=== PATIENT | female | born 1970 | race Caucasian/White ===

== ENCOUNTER 2016-11-02 09:59 | Outpatient (CLI) | payer MEDICARE, OTHER | END 2016-11-02 10:00 | disposition home or self-care (01) | DX: I10 Essential (primary) hypertension (principal); D64.9 Anemia, unspecified; E55.9 Vitamin D deficiency, unspecified ==

== ENCOUNTER 2017-03-27 09:21 | Inpatient (IN) | payer MEDICARE, OTHER ==
[2017-03-27] MEDS ORDERED: ONDANSETRON 4 MG/2 ML VIAL IVP STA ×2 (10:45→17:04)
[2017-03-27] MEDS ORDERED: HYDROmorphone 1 MG/ML SYRINGE IVP STA ×3 (10:45→17:04)
[2017-03-27] MEDS ORDERED: SODIUM CHLORIDE 0.9% 1,000 ML IV ONE (10:45)
[2017-03-27] MEDS ORDERED: cefTRIAXone 1 GM in SODIUM CHLORIDE 0.9% MINIBAG 100 ML IV STA (10:47)
--- NOTE | 2017-03-27 10:50 | ED Physician Documentation ---
History of Present Illness - Stated complaint Stated Complaint: HEAD PAIN,NAUSEA - Chief complaint Chief Complaint: General - Additonal information Additional information: hx from pt 46 f idiopathic neutropenia followed by [facility] has had recurrent dental infections has left lower 2nd molar infection presently worsening despite 2 rounds of keflex (can take cephalosporins though penicillin allergy) trouble eating her dentist did plain films indicating bone infection now with facial swelling as well so she called [facility] and was sent to ER for admit for IV ab denies - she is on OCP Review of Systems Throat: reports: Dental pain / toothache Cardiac: denies: Chest pain / pressure GI: denies: Abdominal Pain : denies: Now EGA Musculoskeletal: reports: Neck pain (R anterior) Endocrine: denies: Easy bruising / bleeding Immunocompromised: denies: Immunocompromised PD PAST MEDICAL HISTORY - Past Medical History Cardiovascular: None Respiratory: Asthma Neuro: Tremors Endocrine/Autoimmune: HyPOthyroidism GI: Ulcers EYEWEAR CONSULTANT: None, Other : None HEENT: None, Other Psych: Bipolar disorder, Panic attacks Musculoskeletal: Fibromyalgia, Fatigue Derm: None Other Past Medical History: Jaw infection, sever chronic neutropenia, Polycystic ovarian disease. - Past Surgical History Past Surgical History: Yes General: Gastric surgery HEENT: Tonsil/Adenoidectomy, Other - Present Medications Home Medications: Ambulatory Orders Medication Instructions Recorded Confirmed Levothyroxine [Synthroid] 100 mcg PO DAILY 05/25/13 05/10/16 Propranolol HCl [Inderal Xl] 120 mg ORAL DAILY 11/25/14 03/27/17 Candesartan Cilexetil [Atacand] 32 mg PO DAILY 05/20/15 05/10/16 Albuterol Sulfate [Proair Hfa] 1 puffs INH Q4HR PRN 07/16/15 05/10/16 Ondansetron [Zofran Odt] 8 mg PO Q8HR PRN 07/16/15 03/27/17 Zolmitriptan [Zomig] 5 mg INH BID PRN 07/16/15 03/27/17 Epinephrine [Epipen 2-Stephen] 0.3 mg IM DAILY PRN 01/19/16 05/10/16 Levonorgestrel-Ethin Estradiol 1 tab PO DAILY 01/22/16 05/10/16 [Setlakin 0.15 mg-0.03 mg Tab] Oxycodone HCl/Acetaminophen 1 each PO Q6H PRN #10 tablet 05/13/16 [Percocet 10-325 mg Tablet] Liothyronine [Cytomel] 10 03/27/17 - Allergies Allergies/Adverse Reactions: Allergies Allergy/AdvReac Type Severity Reaction Status Date / Time clindamycin Allergy Severe Rash Verified 05/10/16 21:03 pantoprazole sodium * Allergy Severe Rash Verified 05/10/16 21:03 [From Protonix] Penicillins Allergy Severe Respiratory Verified 05/10/16 21:03 prochlorperazine edisylate * Allergy Severe panic Verified 05/10/16 21:03 [From Compazine] attack prochlorperazine maleate * Allergy Severe Edema Verified 05/10/16 21:03 [From Compazine] mushroom Allergy Unknown Rash Verified 05/10/16 21:03 codeine Allergy Emesis Verified 05/10/16 21:03 hydrocodone bitartrate * Allergy Itching Verified 05/10/16 21:03 [From Vicodin] morphine AdvReac Severe Headache Verified 05/10/16 21:03 promethazine AdvReac Severe Anxiety Verified 05/10/16 21:03 zolpidem tartrate * AdvReac Severe Hallucinati Verified 05/10/16 21:03 [From Ambien] ons Iodinated Contrast- Oral and AdvReac Rash Verified 03/27/17 12:40 IV Dye Bee stings Allergy Anaphylaxis Uncoded 05/10/16 21:04 - Social History Does the pt smoke?: No Smoking Status: Never smoker Does the pt drink ETOH?: No Does the pt have substance abuse?: No - Immunizations Immunizations are current?: Yes - POLST Patient has POLST: No PD ED PE NORMAL - Vitals Vital signs reviewed: Yes - General General: Alert and oriented X 3 - HEENT HEENT: PERRL, Moist mucous membranes, Other (multiple filling, teeth appear well cared for, TTP lower right second from back molar, no abscess swelling seen to incuse, no trismus, visible swelling along R mandible, TT, ant R cervical adenopathy, no sublingual swelling) - Cardiac Cardiac: RRR - Respiratory Respiratory: No respiratory distress, Clear bilaterally - Derm Derm: Normal color - Neuro Neuro: Alert and oriented X 3 Results - Vitals Vitals: Vital Signs - 24 hr 03/27/17 03/27/17 03/27/17 09:37 12:32 14:05 Temperature 36.6 C 36.6 C 36.5 C Heart Rate 65 58 L 60 Respiratory 16 16 15 Rate Blood Pressure 141/83 H 136/63 H 133/83 H O2 Saturation 99 96 95 03/27/17 18:10 Temperature Heart Rate 58 L Respiratory 16 Rate Blood Pressure 150/90 H O2 Saturation 98 Oxygen O2 Source Room air - Labs Labs: Laboratory Tests 03/27/17 03/27/17 03/27/17 10:55 10:55 10:55 WBC 2.5 L RBC 3.99 L Hgb 11.6 L Hct 35.0 L MCV 87.7 MCH 28.9 MCHC 33.0 RDW 14.2 Plt Count 332 MPV 9.0 Neut # 0.3 L* Lymph # 1.5 Ripley # 0.5 Eos # 0.1 Baso # 0.1 Absolute Nucleated RBC 0.00 Band Neuts % (Manual) Not Reportable Neutrophils # (Manual) CONTINUITY MANAGER Nucleated RBCs 0.1 Differential Comment MANUAL=AUTO DIFF Sodium 138 Potassium 4.4 Chloride 106 Carbon Dioxide 23 Anion Gap 9.0 BUN 12 Creatinine 0.8 Estimated GFR (MDRD) 78 L Glucose 91 Calcium 9.4 Serum HCG, Qual NEGATIVE - Rads (name of study) CT ST neck Radiology: See rad report (swelling and edema R face around R madible c/w infection/cellulitis but no drainable abscess) PD MEDICAL DECISION MAKING - ED course ED course: neutropenic pt with dental infection and facial cellulitis but no abscess req transfer to another facility for drainage has failed outpt oral ab and needs admit for IV ab spoke with hospitalist who will admit Departure - Departure Disposition: [facility] DC/Xfer Clinical Impression: Dental infection Neutropenia Qualifiers: Neutropenia type: unspecified Qualified Code(s): D70.9 - Neutropenia, unspecified Condition: Fair
[2017-03-27] MEDS ORDERED: SODIUM CHLORIDE FLUSH 0.9% 10 ML SYRINGE IVP ONE ×3 (11:05→17:16)
[2017-03-27 11:14] LABS: BASOPHILS # (AUTO) 0.1 10^3/uL (0.0-0.1); EOSINOPHILS # (AUTO) 0.1 10^3/uL (0.0-0.7); EOSINOPHILS % (AUTO) 4.3 %; HGB - HEMOGLOBIN 11.6 g/dL (12.0-16.0); LYMPHOCYTES # (AUTO) 1.5 10^3/uL (1.5-3.5); LYMPHOCYTES % (AUTO) 61.1 %; MEAN CORPUSCULAR HEMOGLOBIN 28.9 pg (27.0-31.0); MEAN CORPUSCULAR VOLUME 87.7 fL (81.0-99.0); MONOCYTES # (AUTO) 0.5 10^3/uL (0.0-1.0); MONOCYTES % (AUTO) 18.7 %; NEUTROPHILS % (AUTO) 12.9 %; NUCLEATED RED BLOOD CELLS AUTO 0.1 /100WBC; RED BLOOD COUNT 3.99 10^6/uL (4.20-5.40); RED CELL DISTRIBUTION WIDTH 14.2 % (12.0-15.0); UNCORRECTED WHITE BLOOD COUNT 2.5 x10^3/uL; WHITE BLOOD COUNT 2.5 x10^3/uL (4.8-10.8)
[2017-03-27 11:19] LABS: CALCIUM 9.4 mg/dL (8.5-10.3); CREATININE 0.8 mg/dL (0.4-1.0); POTASSIUM 4.4 mmol/L (3.5-5.0)
[2017-03-27 11:20] LABS: NEUTROPHILS # (AUTO) 0.3 10^3/uL (1.5-6.6)
[2017-03-27] MEDS ORDERED: ONDANSETRON 4 MG/2 ML VIAL ONE ×2 (11:28→17:15)
[2017-03-27] MEDS ORDERED: HYDROmorphone 1 MG/ML SYRINGE ONE ×4 (11:28→17:15)
[2017-03-27] MEDS ORDERED: cefTRIAXone 1 GM VIAL ONE (11:29)
[2017-03-27 11:39] LABS: NP AUTO DIFFERENTIAL? NO; NP MAN DIFFERENTIAL? YES
[2017-03-27] MEDS ORDERED: diphenhydrAMINE INJ 50 MG/ML VIAL IVP STA (12:45)
[2017-03-27] MEDS ORDERED: diphenhydrAMINE INJ 50 MG/ML VIAL ONE (12:48)
[2017-03-27] MEDS ORDERED: IOPAMIDOL-300 100 ML VIAL ONE (14:19)
--- NOTE | 2017-03-27 15:08 | CT Preliminary Report ---
Exam: CT Neck Soft Tissue W/ IMPRESSION: Swelling and edema in the right face, especially in the region of the right mandible, fin dings consistent with soft tissue infection/cellulitis but there is no evidence for drainable abscess . [facility] SITE ID: [id number]
--- NOTE | 2017-03-27 15:10 | CT Report ---
EXAM: CT SOFT TISSUE NECK EXAM DATE: 03/27/2017 02:20 PM. HISTORY: History of dental infection with worsening soft tissue swelling. COMPARISONS: None. TECHNIQUE: Routine soft tissue neck CT protocol. IV contrast: 100 mL Isovue-300. Reconstructions: Cor onal and sagittal. In accordance with CT protocol optimization, one or more of the following dose reduction techniques w ere utilized for this exam: automated exposure control, adjustment of mA and/or KV based on patient s ize, or use of iterative reconstructive technique. FINDINGS: Incomplete oral cavity evaluation secondary to severe streak artifact created by dental metal, most c onspicuous on axial images 44 through 57 and corresponding sagittal and coronal reconstructions. Canine or premolar periapical dental lucency in the left anterior maxilla consistent with dental deca y or infection. Extensive amorphous soft tissue stranding and swelling superficially in the right face and upper neck , most evident anterior and lateral to the right mandible and extending inferiorly along the platysma which is thickened and irregular. Mild stranding and edema adjacent to the right submandibular space . No evidence however for drainable abscess. There are mildly prominent cervical lymph nodes that are likely reactive. Unremarkable appearance of the parotid and submandibular salivary glands and thyroid gland. Soft tissue fullness in the nasopharynx is probably secondary to adenoid hypertrophy. No evidence for acute laryngitis or pharyngitis by CT imaging criteria, no airway narrowing. Unremarkable appearing epiglottis. Amorphous soft tissue fullness at the tongue base likely represents lingual tonsil hypert rophy. There are findings suggestive of prior sinus surgeries. There is extensive opacity of both maxillary sinuses, there may be a chronic component, but acute maxillary sinus disease cannot be ruled out. Symmetric unremarkable appearing orbits. No evidence for focal intracranial lesion. Normal internal j ugular vein enhancement. IMPRESSION: Swelling and edema in the right face, especially in the region of the right mandible, fin dings consistent with soft tissue infection/cellulitis but there is no evidence for drainable abscess . [facility] Referring Provider Line: [phone] SITE ID: [id number]
[2017-03-27] MEDS ORDERED: ACETAMINOPHEN 325 MG TABLET PO PRN (18:38)
[2017-03-27] MEDS: HYDROmorphone 1 MG/ML SYRINGE IVP PRN ×2 (19:13→21:38)
[2017-03-27] MEDS: SODIUM CHLORIDE FLUSH 0.9% 10 ML SYRINGE IVP PRN (19:14)
[2017-03-27] MEDS: LINEZOLID 600 MG/300 ML 300 ML IV SCH (19:32)
[2017-03-27] MEDS ORDERED: SODIUM CHLORIDE 0.9% IV SCH (21:00)
[2017-03-27] MEDS ORDERED: DOXYCYCLINE IV SCH (21:00)
[2017-03-27] MEDS: CHLORHEXIDINE GLUCONATE 15 ML UDC PO SCH (21:37)
[2017-03-27] MEDS: SODIUM CHLORIDE FLUSH 0.9% 10 ML SYRINGE IVP SCH (21:38)
[2017-03-28] MEDS: HYDROmorphone 1 MG/ML SYRINGE IVP PRN ×11 (00:52→23:57)
[2017-03-28] MEDS: SODIUM CHLORIDE FLUSH 0.9% 10 ML SYRINGE IVP PRN ×4 (00:54→22:05)
[2017-03-28] MEDS: ONDANSETRON 4 MG/2 ML VIAL IVP PRN ×2 (05:50→14:35)
[2017-03-28] MEDS: LINEZOLID 600 MG/300 ML 300 ML IV SCH ×2 (06:36→18:59)
[2017-03-28] MEDS: SODIUM CHLORIDE FLUSH 0.9% 10 ML SYRINGE IVP SCH ×5 (06:37→19:00)
[2017-03-28] MEDS ORDERED: diazePAM 5 MG TABLET PO PRN (09:03)
[2017-03-28] MEDS: POLYETHYLENE GLYCOL 3350 17 GM PACKET PO SCH (09:19)
[2017-03-28] MEDS: CHLORHEXIDINE GLUCONATE 15 ML UDC PO SCH ×2 (09:36→22:05)
[2017-03-28] MEDS: TBO-FILGRASTIM 300 MCG/0.5 ML SYRINGE SUBQ SCH (09:36)
[2017-03-28] MEDS: oxyCOD/ACETAMIN 5 MG/325 MG TABLET PO PRN ×4 (09:36→22:58)
[2017-03-28 09:44] LABS: BASOPHILS # (AUTO) 0.1 10^3/uL (0.0-0.1); BASOPHILS % (AUTO) 2.1 %; EOSINOPHILS # (AUTO) 0.2 10^3/uL (0.0-0.7); HCT - HEMATOCRIT 32.1 % (37.0-47.0); HGB - HEMOGLOBIN 10.6 g/dL (12.0-16.0); LYMPHOCYTES # (AUTO) 1.4 10^3/uL (1.5-3.5); LYMPHOCYTES % (AUTO) 58.2 %; MEAN CORPUSCULAR HEMOGLOBIN 28.8 pg (27.0-31.0); MEAN CORPUSCULAR HGB CONC 33.2 g/dL (32.0-36.0); MEAN CORPUSCULAR VOLUME 86.7 fL (81.0-99.0); MEAN PLATELET VOLUME 8.3 fL (7.9-10.8); MONOCYTES # (AUTO) 0.5 10^3/uL (0.0-1.0); MONOCYTES % (AUTO) 19.7 %; NUCLEATED RED BLOOD CELLS AUTO 0.1 /100WBC; UNCORRECTED WHITE BLOOD COUNT 2.4 x10^3/uL; WHITE BLOOD COUNT 2.4 x10^3/uL (4.8-10.8)
[2017-03-28 09:49] LABS: NEUTROPHILS # (AUTO) 0.3 10^3/uL (1.5-6.6)
[2017-03-28] MEDS: DOXYCYCLINE INJ 100 MG in SODIUM CHLORIDE 0.9% MINIBAG 100 ML IV SCH ×4 (09:54→22:50)
[2017-03-28] MEDS ORDERED: diphenhydrAMINE INJ 50 MG/ML VIAL IVP ONE (14:00)
[2017-03-28] MEDS ORDERED: GADOBUTROL 10 MMOL/10 ML VIAL IVP ONE (16:03)
--- NOTE | 2017-03-28 17:14 | MRI Preliminary Report ---
Exam: MRI Facial W/WO IMPRESSION: 1. Redemonstration extensive soft tissue swelling and inflammatory change adjacent to the right denton ble (for example series 401 image 16 series 701 image 15) involving the soft tissues of the right bas e, lateral to the right mandible and extending soft tissues of the jaw and also extending to lateral aspect of the right submandibular space (series 71 image 14), consistent with extensive soft tissue c ellulitis. 2. A small peripherally enhancing collection lateral to the posterior mandibular body (series 801 amarilys ge 19, series 1001 image 13, series 701 image 19) measuring 8 x 5 x 11 mm (AP by transverse by cranio caudal), consistent with a underlying abscess. 3. The associated right mandibular body demonstrates T1 hypointensity (for example series 601 image 1 6) with associated mild T2 hyperintensity and enhancement (for example series 701 image 17, series 80 1 image 17), concerning for underlying osteomyelitis. 4. Scattered mildly prominent cervical lymph nodes are seen, for example right level IIA node measuri ng 12 x 9 mm (series 801 image 18, right level IB node measuring 11 x 8 mm (series 801 image 14), the se are likely reactive. CRITICAL RESULT: The findings were discussed with Dr. Harmon On 03/28/2017 17:08 [facility] SITE ID: [id number]
--- NOTE | 2017-03-28 17:17 | MRI Report ---
EXAM: MRI OF THE FACE AND NECK WITHOUT AND WITH CONTRAST EXAM DATE: 03/28/2017 CLINICAL INDICATION: Possible jaw osteomyelitis. History of right mandibular tooth abscess for 2 week s. COMPARISON: CT soft tissue neck 03/27/2017 TECHNIQUE: Multiplanar, multisequence MRI of the face and neck soft tissues was performed prior to and following intravenous administration of contrast. IV CONTRAST: 10 cc Gadavist FINDINGS: Visualized Intracranial Contents: Unremarkable. Orbits: Unremarkable. Sinuses: Extensive mucosal thickening final maxillary sinuses mild mucosal thickening sphenoid sinuse s. Soft tissues: again noted is extensive soft tissue swelling and inflammatory change adjacent to the r ight mandible (for example series 401 image 16 series 701 image 15) involving the soft tissues of the right base, lateral to the right mandible and extending soft tissues of the jaw and also extending t o lateral aspect of the right submandibular space (series 71 image 14), consistent with extensive sof t tissue cellulitis. There is a small peripherally enhancing collection lateral to the posterior phuc ibular body (series 801 image 19, series 1001 image 13, series 701 image 19) measuring 8 x 5 x 11 mm (AP by transverse by craniocaudal), consistent with a underlying abscess. The associated right mandib ular body demonstrates T1 hypointensity (for example series 601 image 16) with associated mild T2 hyp erintensity and enhancement (for example series 701 image 17, series 801 image 17), concerning for un derlying osteomyelitis. Pharynx and Floor of Mouth: Nasopharyngeal mucosa and parapharyngeal spaces are unremarkable. Retroph aryngeal spaces are normal and symmetric. Airway is widely patent. Base of tongue and floor of mouth are symmetric without mass lesion. No abnormal enhancement. Larynx: Laryngeal airway is patent without mass lesion. True vocal cords are symmetric. Parotid and Submandibular Glands: Normal. Lymph Nodes: Scattered mildly prominent cervical lymph nodes are seen, for example right level IIA no de measuring 12 x 9 mm (series 801 image 18, right level IB node measuring 11 x 8 mm (series 801 imag e 14), these are likely reactive. Vascular Flow Voids: Unremarkable. Cervical Spine: Bone marrow signal is normal. Other: None. IMPRESSION: 1. Redemonstration extensive soft tissue swelling and inflammatory change adjacent to the right denton ble (for example series 401 image 16 series 701 image 15) involving the soft tissues of the right bas e, lateral to the right mandible and extending soft tissues of the jaw and also extending to lateral aspect of the right submandibular space (series 71 image 14), consistent with extensive soft tissue c ellulitis. 2. A small peripherally enhancing collection lateral to the posterior mandibular body (series 801 amarilys ge 19, series 1001 image 13, series 701 image 19) measuring 8 x 5 x 11 mm (AP by transverse by cranio caudal), consistent with a underlying abscess. 3. The associated right mandibular body demonstrates T1 hypointensity (for example series 601 image 1 6) with associated mild T2 hyperintensity and enhancement (for example series 701 image 17, series 80 1 image 17), concerning for underlying osteomyelitis. 4. Scattered mildly prominent cervical lymph nodes are seen, for example right level IIA node measuri ng 12 x 9 mm (series 801 image 18, right level IB node measuring 11 x 8 mm (series 801 image 14), the se are likely reactive. CRITICAL RESULT: The findings were discussed with Dr. Harmon On 03/28/2017 17:08 [facility] Referring Provider Line: [phone] SITE ID: [id number]
--- NOTE | 2017-03-28 22:59 | HISTORY & PHYSICAL EXAMINATION ---
DATE OF ADMISSION: 03/27/2017 HISTORY OF PRESENT ILLNESS: This is a 46-year-old white female with a history of gastric bypass surgery for morbid obesity, which was done in 2002. Subsequently, she has developed multiple GI problems with daily nausea, intermittent diarrhea, occasional abdominal discomfort, felt to be due to adhesions, for which she has required abdominal surgery. She has a history of fibromyalgia, and a history of neutropenia of unknown etiology (worked up extensively at multiple specialty centers). In the past, this was responsive to Neupogen, but this was stopped as there was no longer benefit. The patient is prone to frequent infections because of her low white blood cell count. The patient presents with a dental infection that has had 2 courses of oral Keflex treatment over the past 2-3 weeks. Even with the second course of treatment, she started to develop worsening swelling in the location of the pain , which was in the right lower jaw. She was unable to reach her animal services officer or her dentist for advice and presented to the emergency room with this complaint. She was found to have significant facial cellulitis on evaluation in the ER. MEDICATIONS AT HOME 1. Synthroid 100 mcg p.o. daily. 2. Inderal XL 120 mg p.o. daily. 3. Atacand 32 mg p.o. daily. 4. ProAir HFA 1 puff q.4 hours p.r.n. 5. Zofran 8 mg p.o. q.8 hours p.r.n. nausea. 6. Zomig 5 mg inhaler b.i.d. p.r.n. 7. EpiPen p.r.n. for allergic reactions and respiratory distress. 8. Estradiol 1 tab p.o. daily. 9. Tylenol with Codeine q.6 hours p.r.n. pain. 10. Cytomel unknown dose. ALLERGIES: 1. CLINDAMYCIN. 2. PROTONIX. 3. PENICILLINS. 4. COMPAZINE. 5. MUSHROOMS. 6. CODEINE. 7. VICODIN. 8. MORPHINE. 9. PROMETHAZINE. 10. AMBIEN. 11. IODINATED DYE. 12. BEE STINGS. SOCIAL HISTORY: The patient is a nonsmoker, never smoked, drinks no alcohol, denies any substance abuse. REVIEW OF SYSTEMS: The patient has hypothyroidism and describes intermittent fluctuations in her fatigue. She has bipolar disorder and describes occasional panic attacks. She describes insomnia. There is a past history of polycystic ovary disease. She describes minimal weight loss despite the gastric bypass surgery even on an 800 calorie per day diet. There has been no fever with this current infection. She denies any diarrhea with the 2 courses of antibiotics. She denies cardiopulmonary symptoms. The rest of her multi-organ ROS is negative. FAMILY HISTORY: Not significant, except that her sister also underwent gastric bypass surgery for obesity. PHYSICAL EXAMINATION GENERAL: Reveals an obese, white female. She is in no distress. She has obvious swelling of the right lower jaw area. VITAL SIGNS: Blood pressure 140/80, heart rate is in the 60s. She is in sinus rhythm. She is afebrile, respiratory rate 16. HEENT: Moist oral mucosa. In the mouth, there is no obvious swelling, there are no tonsils seen, no abscesses visible. In the right lower jaw area externally, she has warmth, but no redness, and extensive swelling from the mid-anterior chin to the angle of the jaw and slightly down toward the neck. There is no crepitus or fluctuation. There is moderate induration. NECK: Shows no JVD or carotid bruits. No thyromegaly. CHEST: Clear. HEART: Sounds are normal. No audible murmurs. ABDOMEN: Soft, obese. Positive bowel sounds. EXTREMITIES: No clubbing, cyanosis, or edema. NEUROLOGIC: Neurologically she is intact. LABORATORY DATA: Sodium 138, potassium 4.4. Normal BUN and creatinine. Negative hCG. White blood count total is 2.5 with 0.3 neutrophils, hemoglobin 11.6, platelet count normal at 332. There was no INR done. IMAGING: She had facial x-rays done which showed possibility of osteomyelitis. DIAGNOSES 1. Cellulitis of the right jaw area. 2. Dental infection with abscess. 3. Possible osteomyelitis. 4. Chronic iatrogenic neutropenia. 5. Hypertension. 6. Hypothyroidism. 7. Obesity. 8. Fibromyalgia. 9. Extensive allergies. PLAN IV antibiotics to cover oral bacteria including anaerobes. Due to her allergies to CEPHALOSPORINS and PENICILLINS and CLINDAMYCIN, she will be placed on Zyvox and doxycycline IV. She will be started on the generic equivalent of Neupogen in order to try to stimulate white blood cell and neutrophil formation. She will have pain management using Dilaudid and Percocet. Her diet will be adjusted to a soft diet to decrease pain while chewing. She will have neutropenic precautions in the room with a neutropenic diet ordered. She will undergo MRI of the head in order to evaluate for mandibular osteomyelitis. A surgical consult will be obtained to evaluate the abscess. The swelling will be followed for airway obstruction. If there is a fever or worsening labs or worsening of swelling, then she will be transferred to a facility with higher level of care. JOB #: [id number] EXT JOB #:[id number] ASHLI
[2017-03-29] MEDS: HYDROmorphone 1 MG/ML SYRINGE IVP PRN ×9 (02:02→23:40)
[2017-03-29] MEDS: oxyCOD/ACETAMIN 5 MG/325 MG TABLET PO PRN ×4 (03:19→21:17)
[2017-03-29] MEDS: SODIUM CHLORIDE FLUSH 0.9% 10 ML SYRINGE IVP SCH ×3 (05:07→19:34)
[2017-03-29 05:57] LABS: BASOPHILS % (AUTO) 2.1 %; EOSINOPHILS % (AUTO) 9.3 %; HCT - HEMATOCRIT 33.6 % (37.0-47.0); HGB - HEMOGLOBIN 10.9 g/dL (12.0-16.0); LYMPHOCYTES % (AUTO) 58.4 %; MEAN CORPUSCULAR HEMOGLOBIN 28.9 pg (27.0-31.0); MEAN CORPUSCULAR HGB CONC 32.5 g/dL (32.0-36.0); MEAN CORPUSCULAR VOLUME 88.8 fL (81.0-99.0); MEAN PLATELET VOLUME 8.7 fL (7.9-10.8); MONOCYTES % (AUTO) 17.9 %; NEUTROPHILS % (AUTO) 12.3 %; RED BLOOD COUNT 3.78 10^6/uL (4.20-5.40); RED CELL DISTRIBUTION WIDTH 13.8 % (12.0-15.0); UNCORRECTED WHITE BLOOD COUNT 2.2 x10^3/uL; WHITE BLOOD COUNT 2.2 x10^3/uL (4.8-10.8)
[2017-03-29] MEDS: LINEZOLID 600 MG/300 ML 300 ML IV SCH ×2 (06:37→15:53)
[2017-03-29] MEDS: ONDANSETRON 4 MG/2 ML VIAL IVP PRN ×2 (06:37→19:34)
[2017-03-29 06:42] LABS: NEUTROPHILS % (MANUAL) 14 %; TOTAL CELLS COUNTED 100
[2017-03-29 06:44] LABS: BAND NEUTROPHILS % (MANUAL) 2 %; BASOPHILS % (MANUAL) 2 %; EOSINOPHILS % (MANUAL) 3 %; LYMPHOCYTES % (MANUAL) 67 %
[2017-03-29 06:45] LABS: PLATELET ESTIMATE, MANUAL NORMAL (130-450,000) (NORMAL)
[2017-03-29 06:46] LABS: NP AUTO DIFFERENTIAL? YES; NP MAN DIFFERENTIAL? NO
[2017-03-29] MEDS ORDERED: ZOLMITRIPTAN 5 MG INH PRN (10:20)
[2017-03-29] MEDS ORDERED: ALBUTEROL NEB 2.5 MG/3 ML INH PRN (10:28)
[2017-03-29] MEDS ORDERED: SODIUM CHLORIDE FLUSH 0.9% 10 ML SYRINGE IVP ONE (10:54)
[2017-03-29] MEDS ORDERED: LEVOTHYROXINE 100 MCG TABLET PO SCH (11:00)
[2017-03-29] MEDS ORDERED: WATER FOR INJECTION,STERILE 0 ML ONE (11:16)
[2017-03-29] MEDS: LEVONORGESTREL ETHIN ESTRADIOL PO SCH (12:22)
--- NOTE | 2017-03-29 12:23 | XRAY Report ---
FRONTAL CHEST: 03/29/2017 CLINICAL INDICATION: Right arm PICC placement. COMPARISON: 01/19/2016. FINDINGS: Frontal view of the chest demonstrates a right arm PICC terminating in the expected locati on of the mid right subclavian vein. The cardiac silhouette is within normal limits. The lungs are cl ear. No effusion or pneumothorax is present. IMPRESSION: RIGHT ARM PICC TERMINATING IN THE MID RIGHT SUBCLAVIAN VEIN. JOB #: [id number] EXT JOB #:
[2017-03-29] MEDS: SODIUM CHLORIDE FLUSH 0.9% 10 ML SYRINGE IVP PRN ×4 (12:24→23:41)
[2017-03-29] MEDS ORDERED: diazePAM INJ 5 MG/ML SYRINGE IVP ONE (12:29)
[2017-03-29] MEDS: DOXYCYCLINE INJ 100 MG in SODIUM CHLORIDE 0.9% MINIBAG 100 ML IV SCH (14:35)
[2017-03-29] MEDS: CHLORHEXIDINE GLUCONATE 15 ML UDC PO SCH ×2 (14:41→21:17)
[2017-03-29] MEDS: POLYETHYLENE GLYCOL 3350 17 GM PACKET PO SCH (14:42)
[2017-03-29] MEDS: TBO-FILGRASTIM 300 MCG/0.5 ML SYRINGE SUBQ SCH (14:43)
--- NOTE | 2017-03-29 14:43 | PROVIDER PROGRESS NOTE ---
Assessment/Plan - Problem List (1) Cellulitis and abscess of face Assessment/Plan: THIS IS LATE ENTRY OF VISIT DONE 03/28/17 Minimal change in physical exam. Continue plan (2) Osteomyelitis Qualifiers: Osteomyelitis type: other acute Assessment/Plan: Will request surgery consult regarding oral surgery impression. - Current Meds Current Meds: Current Medications Generic Name Dose Route Start Last Admin Trade Name Freq PRN Reason Stop Dose Admin Chlorhexidine Gluconate 15 ml 03/27/17 21:00 03/28/17 22:05 Peridex PO 15 ml BID SANJAY Administration Hydromorphone HCl 1 mg 03/27/17 18:38 03/29/17 14:22 Dilaudid Inj IVP 1 mg Q2HR PRN Administration Pain 8 to 10 Levothyroxine Sodium 100 mcg 03/29/17 11:00 03/29/17 12:23 Synthroid PO Not Given DAILY SANJAY Non-Formulary Medication 1 tab 03/29/17 10:30 03/29/17 12:22 Levonorgestrel-Ethin Estradiol [Setlakin 0.15 Mg-0.03 Mg Tab] PO Not Given DAILY SANJAY Ondansetron HCl 4 mg 03/28/17 05:37 03/29/17 06:37 Zofran Inj IVP 4 mg Q4HR PRN Administration Nausea / Vomiting Oxycodone/Acetaminophen 1 tab 03/28/17 09:02 03/29/17 08:19 Percocet 5 Mg/325 Mg PO 1 tab Q4HR PRN Administration PAIN Polyethylene Glycol 17 gm 03/28/17 09:00 03/28/17 09:19 Miralax PO Not Given DAILY SANJAY Sodium Chloride 10 ml 03/27/17 18:38 03/29/17 13:23 Normal Saline Flush 0.9% IVP 10 ml PRN PRN Administration NEEDED PER PROVIDER ORDERS Sodium Chloride 10 ml 03/27/17 22:00 03/29/17 05:07 Normal Saline Flush 0.9% IVP Not Given Q8HR SANJAY Tbo-Filgrastim 300 mcg 03/28/17 10:00 03/28/17 09:36 Granix SUBQ 300 mcg DAILY SANJAY Administration - Lab Result Fish Bone Diagrams: 03/29/17 05:21 03/27/17 10:55 - Additional Planning My Orders: My Active Orders 03/29/17 08:20 PICC Line Care [RC] Q4H PICC Line Insert [RC] .ONCE 03/29/17 10:20 Zolmitriptan [Zomig] 5 mg INH BID PRN 03/29/17 10:28 Albuterol 2.5 mg INH RTQ4H PRN 03/29/17 10:30 Levonorgestrel-Ethin Estradiol [Setlakin 0.15 mg-0.03 mg Tab] 1 tab PO DAILY 03/29/17 11:00 Levothyroxine [Synthroid] 100 mcg PO DAILY 03/29/17 12:30 diazePAM [Valium] 10 mg PO QPM PRN 03/29/17 15:00 Linezolid 600 mg/300 ml [Zyvox 600 mg/300 ml] 300 ml IV 0300,1500 03/30/17 01:00 Doxycycline Inj [Vibramycin Inj] 100 mg Sodium Chloride 0.9% Minibag [Normal Saline 0.9% Minibag] 100 ml IV 0100,1300 03/30/17 02:00 Doxycycline Inj [Vibramycin Inj] 100 mg Sodium Chloride 0.9% Minibag [Normal Saline 0.9% Minibag] 100 ml IV 0200,1400 03/30/17 09:00 Losartan [Cozaar] 100 mg PO DAILY Subjective - Subjective Patient Reports: Feeling Better (THIS IS A LATE ENTRY FROM VISIT DONE 03/28/17) Nursing Reports: Other (Still swollen R lower jaw) Objective Vital Signs: Vital Signs - 24 hr 03/28/17 03/28/17 03/29/17 16:54 20:13 00:05 Temperature 36.6 C 36.9 C 36.4 C L Heart Rate [ 70 70 65 Apical] Respiratory 17 18 16 Rate Blood Pressure 148/73 H 160/92 H 118/56 L [Left] Blood Pressure [Right Brachial artery] O2 Saturation 96 98 03/29/17 03/29/17 03/29/17 05:42 08:43 12:44 Temperature 36.6 C 36.6 C 36.8 C Heart Rate [ 71 73 73 Apical] Respiratory 16 16 18 Rate Blood Pressure [Left] Blood Pressure 129/65 152/96 H 161/83 H [Right Brachial artery] O2 Saturation 95 97 99 Oxygen O2 Source Room air I&O (Last 24 Hrs): Intake and Output Totals x24h 03/27/17 03/28/17 03/29/17 23:59 23:59 23:59 Intake Total 680 4169 1425 Output Total 1 Balance 679 4169 1425 General: Alert HEENT: Mucous membr. moist/pink, Other (More swollen and indurated R lower jaw, less tender, no warmth or redness) Neuro: Alert Cardiovascular: Regular rate Respiratory: No respiratory distress Abdomen: Soft Extremities: No edema - Results Results: Laboratory Results WBC 2.2 x10^3/uL (4.8-10.8) L 03/29/17 05:21 RBC 3.78 10^6/uL (4.20-5.40) L 03/29/17 05:21 Hgb 10.9 g/dL (12.0-16.0) L 03/29/17 05:21 Hct 33.6 % (37.0-47.0) L 03/29/17 05:21 MCV 88.8 fL (81.0-99.0) 03/29/17 05:21 MCH 28.9 pg (27.0-31.0) 03/29/17 05:21 MCHC 32.5 g/dL (32.0-36.0) 03/29/17 05:21 RDW 13.8 % (12.0-15.0) 03/29/17 05:21 Plt Count 287 10^3/uL (130-450) 03/29/17 05:21 MPV 8.7 fL (7.9-10.8) 03/29/17 05:21 Neut # Not Reportable 03/29/17 05:21 Lymph # Not Reportable 03/29/17 05:21 [place] # Not Reportable 03/29/17 05:21 Eos # Not Reportable 03/29/17 05:21 Baso # Not Reportable 03/29/17 05:21 Absolute Nucleated RBC Not Reportable 03/29/17 05:21 Total Counted 100 03/29/17 05:21 Band Neuts % (Manual) 2 % (0-10) 03/29/17 05:21 Neutrophils # (Manual) 0.4 10^3/uL (1.5-6.6) L* 03/29/17 05:21 Lymphocytes # (Manual) 1.5 10^3/uL (1.5-3.5) 03/29/17 05:21 Monocytes # (Manual) 0.3 10^3/uL (0.0-1.0) 03/29/17 05:21 Eosinophils # (Manual) 0.1 10^3/uL (0-0.7) 03/29/17 05:21 Basophils # (Manual) 0.0 10^3/uL (0-0.1) 03/29/17 05:21 Nucleated RBCs Not Reportable 03/29/17 05:21 Differential Comment MANUAL DIFFERENTIAL 03/29/17 05:21 Manual Slide Review Indicated 03/28/17 09:39 Platelet Estimate NORMAL (130-450,000) (NORMAL) 03/29/17 05:21 RBC Morph Micro Appear NORMAL APPEARANCE (NORMAL) 03/29/17 05:21 Sodium 138 mmol/L (135-145) 03/27/17 10:55 Potassium 4.4 mmol/L (3.5-5.0) 03/27/17 10:55 Chloride 106 mmol/L (101-111) 03/27/17 10:55 Carbon Dioxide 23 mmol/L (21-32) 03/27/17 10:55 Anion Gap 9.0 (6-13) 03/27/17 10:55 BUN 12 mg/dL (6-20) 03/27/17 10:55 Creatinine 0.8 mg/dL (0.4-1.0) 03/27/17 10:55 Estimated GFR (MDRD) 78 (>89) L 03/27/17 10:55 Glucose 91 mg/dL (70-100) 03/27/17 10:55 Calcium 9.4 mg/dL (8.5-10.3) 03/27/17 10:55 Serum HCG, Qual NEGATIVE 03/27/17 10:55
--- NOTE | 2017-03-29 16:40 | CONSULTATION NOTE ---
DATE OF CONSULTATION: 03/28/2017 00:00:00 03/28/2017. REQUESTING PROVIDER: Daphne Harmon MD REASON FOR CONSULTATION: Tooth abscess and facial cellulitis. HISTORY OF PRESENT ILLNESS: This is a 46-year-old female who has a diagnosis of neutropenia of unknown etiology, who states that she has been having right- sided tooth pain for several weeks and was seen by her dentist who recommended tooth extraction. However, given her neutropenia, they elected to wait until this issue could be resolved. In the interim, she began developing worsening tooth pain and swelling of the right side of her face. She subsequently presented to the emergency department on March 27. She was admitted to the medical service and placed on IV antibiotics. An MRI of the head and neck were performed which demonstrated extensive soft tissue swelling and inflammatory changes in the right mandible consistent with a soft tissue cellulitis. There was a small collection lateral to the posterior mandibular body measuring 8 x 5 x 11 mm consistent with an underlying abscess. There were also findings suggestive of right mandibular osteomyelitis. Additionally, there is prominent cervical lymphadenopathy. At this point a surgical consultation was obtained. PAST MEDICAL HISTORY: Significant for neutropenia of unknown etiology, fibromyalgia, morbid obesity, asthma. PAST SURGICAL HISTORY: Gastric bypass. MEDICATIONS: Home medications: 1. Synthroid. 2. Inderal. 3. Atacand. 4. ProAir. 5. Zofran. 6. Zomig. 7. EpiPen. 8. Estradiol. 9. Tylenol. 10. Cytomel. ALLERGIES TO MEDICATIONS: 1. CLINDAMYCIN. 2. PROTONIX. 3. PENICILLIN. 4. COMPAZINE. 5. MUSHROOMS. 6. CODEINE. 7. VICODIN. 8. MORPHINE. 9. PROMETHAZINE. 10. AMBIEN. 11. IODINATED DYE. 12. BEE STINGS. SOCIAL HISTORY: The patient is a nonsmoker and does not drink alcohol. PHYSICAL EXAMINATION: VITAL SIGNS: Temperature is 36.4, blood pressure 118/56, heart rate is 65, respiratory rate is 16, O2 status 98% on room air. GENERAL: She is awake, alert , oriented x3, in no acute distress. She is obese. HEENT: There is right-sided facial swelling. There is no visible intraoral cellulitis or fluid collection noted. There is no hoarseness or stridor present. LABORATORY VALUES: White blood cell count is 2.2, hemoglobin 10.9, hematocrit 33.6, platelets 287. Sodium 138, potassium 4.4, chloride 106, bicarbonate 23, BUN 12, creatinine 0.8, glucose 91. ASSESSMENT: This is a 46-year-old female with right facial cellulitis and a mandibular abscess and osteomyelitis. PLAN: I have discussed with the medical team the fact that as a general surgeon , I do not perform any mandibular procedures or tooth extractions. The patient should be transferred to a center with a maxillofacial surgeon for definitive management. JOB #: [id number] EXT JOB #:[id number] MTDD
--- NOTE | 2017-03-29 17:14 | PROVIDER PROGRESS NOTE ---
Assessment/Plan - Problem List (1) Cellulitis and abscess of face Assessment/Plan: Slight improvement by physical exam. Continue antibiotics (2) Osteomyelitis Qualifiers: Osteomyelitis type: other acute Assessment/Plan: Continue antibiotics, a long course will be necessary, therefore will order a PICC line. (3) Dental infection Assessment/Plan: If surgery for drainage is indicated, Pt will need transfer. Awaiting General surg consult and I will call her Dentist for further recommendations (4) Neutropenia Qualifiers: Neutropenia type: unspecified Qualified Code(s): D70.9 - Neutropenia, unspecified Assessment/Plan: Continue isolation precautions and follow ANC - Current Meds Current Meds: Current Medications Generic Name Dose Route Start Last Admin Trade Name Freq PRN Reason Stop Dose Admin Chlorhexidine Gluconate 15 ml 03/27/17 21:00 03/29/17 14:41 Peridex PO 15 ml BID SANJAY Administration Hydromorphone HCl 1 mg 03/27/17 18:38 03/29/17 16:46 Dilaudid Inj IVP 1 mg Q2HR PRN Administration Pain 8 to 10 Linezolid 300 mls @ 300 mls/hr 03/29/17 15:00 03/29/17 15:53 Zyvox 600 Mg/300 Ml IV 300 mls/hr 0300,1500 SANJAY Administration Levothyroxine Sodium 100 mcg 03/29/17 11:00 03/29/17 12:23 Synthroid PO Not Given DAILY PENDING SALE TO [facility] Non-Formulary Medication 1 tab 03/29/17 10:30 03/29/17 12:22 Levonorgestrel-Ethin Estradiol [Setlakin 0.15 Mg-0.03 Mg Tab] PO Not Given DAILY [facility]ENDING [facility] TO [facility] Ondansetron HCl 4 mg 03/28/17 05:37 03/29/17 06:37 Zofran Inj IVP 4 mg Q4HR PRN Administration Nausea / Vomiting Oxycodone/Acetaminophen 1 tab 03/28/17 09:02 03/29/17 15:52 Percocet 5 Mg/325 Mg PO 1 tab Q4HR PRN Administration PAIN Polyethylene Glycol 17 gm 03/28/17 09:00 03/29/17 14:42 Miralax PO Not Given DAILY SANJAY Sodium Chloride 10 ml 03/27/17 18:38 03/29/17 13:23 Normal Saline Flush 0.9% IVP 10 ml PRN PRN Administration NEEDED PER PROVIDER ORDERS Sodium Chloride 10 ml 03/27/17 22:00 03/29/17 14:47 Normal Saline Flush 0.9% IVP 10 ml Q8HR SANJAY Administration Tbo-Filgrastim 300 mcg 03/28/17 10:00 03/29/17 14:43 Granix SUBQ 300 mcg DAILY SANJAY Administration - Lab Result Fish Bone Diagrams: 03/29/17 05:21 03/27/17 10:55 - Additional Planning My Orders: My Active Orders 03/29/17 08:20 PICC Line Care [RC] Q4H PICC Line Insert [RC] .ONCE 03/29/17 10:20 Zolmitriptan [Zomig] 5 mg INH BID PRN 03/29/17 10:28 Albuterol 2.5 mg INH RTQ4H PRN 03/29/17 10:30 Levonorgestrel-Ethin Estradiol [Setlakin 0.15 mg-0.03 mg Tab] 1 tab PO DAILY 03/29/17 11:00 Levothyroxine [Synthroid] 100 mcg PO DAILY 03/29/17 12:30 diazePAM [Valium] 10 mg PO QPM PRN 03/29/17 15:00 Linezolid 600 mg/300 ml [Zyvox 600 mg/300 ml] 300 ml IV 0300,1500 03/30/17 01:00 Doxycycline Inj [Vibramycin Inj] 100 mg Sodium Chloride 0.9% Minibag [Normal Saline 0.9% Minibag] 100 ml IV 0100,1300 03/30/17 02:00 Doxycycline Inj [Vibramycin Inj] 100 mg Sodium Chloride 0.9% Minibag [Normal Saline 0.9% Minibag] 100 ml IV 0200,1400 03/30/17 09:00 Losartan [Cozaar] 100 mg PO DAILY Subjective - Subjective Patient Reports: Feeling Better, Other ("Got no sleep despite Valium dose") Nursing Reports: Other (Anxiety over PICC line needed) Objective Vital Signs: Vital Signs - 24 hr 03/28/17 03/29/17 03/29/17 20:13 00:05 05:42 Temperature 36.9 C 36.4 C L 36.6 C Heart Rate [ 70 65 71 Apical] Respiratory 18 16 16 Rate Blood Pressure 160/92 H 118/56 L [Left] Blood Pressure 129/65 [Right Brachial artery] O2 Saturation 98 95 03/29/17 03/29/17 03/29/17 08:43 12:44 15:51 Temperature 36.6 C 36.8 C 36.7 C Heart Rate [ 73 73 72 Apical] Respiratory 16 18 18 Rate Blood Pressure 148/94 H [Left] Blood Pressure 152/96 H 161/83 H [Right Brachial artery] O2 Saturation 97 99 100 Oxygen O2 Source Room air I&O (Last 24 Hrs): Intake and Output Totals x24h 03/27/17 03/28/17 03/29/17 23:59 23:59 23:59 Intake Total 680 4169 1425 Output Total 1 Balance 679 4169 1425 General: Alert HEENT: Other (The swelling appears more localized and firmer, no redness od heat ) Neck: Supple Neuro: Alert Cardiovascular: Regular rate Respiratory: No respiratory distress Abdomen: Soft Extremities: No edema - Results Results: Laboratory Results WBC 2.2 x10^3/uL (4.8-10.8) L 03/29/17 05:21 RBC 3.78 10^6/uL (4.20-5.40) L 03/29/17 05:21 Hgb 10.9 g/dL (12.0-16.0) L 03/29/17 05:21 Hct 33.6 % (37.0-47.0) L 03/29/17 05:21 MCV 88.8 fL (81.0-99.0) 03/29/17 05:21 MCH 28.9 pg (27.0-31.0) 03/29/17 05:21 MCHC 32.5 g/dL (32.0-36.0) 03/29/17 05:21 RDW 13.8 % (12.0-15.0) 03/29/17 05:21 Plt Count 287 10^3/uL (130-450) 03/29/17 05:21 MPV 8.7 fL (7.9-10.8) 03/29/17 05:21 Neut # Not Reportable 03/29/17 05:21 Lymph # Not Reportable 03/29/17 05:21 [place] # Not Reportable 03/29/17 05:21 Eos # Not Reportable 03/29/17 05:21 Baso # Not Reportable 03/29/17 05:21 Absolute Nucleated RBC Not Reportable 03/29/17 05:21 Total Counted 100 03/29/17 05:21 Band Neuts % (Manual) 2 % (0-10) 03/29/17 05:21 Neutrophils # (Manual) 0.4 10^3/uL (1.5-6.6) L* 03/29/17 05:21 Lymphocytes # (Manual) 1.5 10^3/uL (1.5-3.5) 03/29/17 05:21 Monocytes # (Manual) 0.3 10^3/uL (0.0-1.0) 03/29/17 05:21 Eosinophils # (Manual) 0.1 10^3/uL (0-0.7) 03/29/17 05:21 Basophils # (Manual) 0.0 10^3/uL (0-0.1) 03/29/17 05:21 Nucleated RBCs Not Reportable 03/29/17 05:21 Differential Comment MANUAL DIFFERENTIAL 03/29/17 05:21 Manual Slide Review Indicated 03/28/17 09:39 Platelet Estimate NORMAL (130-450,000) (NORMAL) 03/29/17 05:21 RBC Morph Micro Appear NORMAL APPEARANCE (NORMAL) 03/29/17 05:21 Sodium 138 mmol/L (135-145) 03/27/17 10:55 Potassium 4.4 mmol/L (3.5-5.0) 03/27/17 10:55 Chloride 106 mmol/L (101-111) 03/27/17 10:55 Carbon Dioxide 23 mmol/L (21-32) 03/27/17 10:55 Anion Gap 9.0 (6-13) 03/27/17 10:55 BUN 12 mg/dL (6-20) 03/27/17 10:55 Creatinine 0.8 mg/dL (0.4-1.0) 03/27/17 10:55 Estimated GFR (MDRD) 78 (>89) L 03/27/17 10:55 Glucose 91 mg/dL (70-100) 03/27/17 10:55 Calcium 9.4 mg/dL (8.5-10.3) 03/27/17 10:55 Serum HCG, Qual NEGATIVE 03/27/17 10:55
[2017-03-29] MEDS: diazePAM 5 MG TABLET PO PRN (23:41)
[2017-03-30] MEDS: DOXYCYCLINE INJ 100 MG in SODIUM CHLORIDE 0.9% MINIBAG 100 ML IV SCH ×5 (00:49→15:34)
[2017-03-30] MEDS ORDERED: DOXYCYCLINE INJ 100 MG in SODIUM CHLORIDE 0.9% MINIBAG 100 ML IV SCH (01:00)
[2017-03-30] MEDS: LINEZOLID 600 MG/300 ML 300 ML IV SCH ×2 (02:59→15:46)
[2017-03-30] MEDS: HYDROmorphone 1 MG/ML SYRINGE IVP PRN ×9 (03:21→22:07)
[2017-03-30] MEDS: SODIUM CHLORIDE FLUSH 0.9% 10 ML SYRINGE IVP SCH ×5 (03:21→22:06)
[2017-03-30] MEDS: ONDANSETRON 4 MG/2 ML VIAL IVP PRN ×2 (03:28→11:03)
[2017-03-30] MEDS: oxyCOD/ACETAMIN 5 MG/325 MG TABLET PO PRN ×3 (05:45→20:08)
[2017-03-30] MEDS: SODIUM CHLORIDE FLUSH 0.9% 10 ML SYRINGE IVP PRN ×7 (05:46→22:06)
[2017-03-30] MEDS ORDERED: LEVOTHYROXINE 100 MCG TABLET PO SCH (07:48)
[2017-03-30] MEDS: LOSARTAN 50 MG TABLET PO SCH (08:01)
[2017-03-30] MEDS: LEVONORGESTREL ETHIN ESTRADIOL PO SCH (08:15)
[2017-03-30] MEDS: POLYETHYLENE GLYCOL 3350 17 GM PACKET PO SCH (08:16)
[2017-03-30] MEDS: CHLORHEXIDINE GLUCONATE 15 ML UDC PO SCH ×2 (09:37→22:02)
[2017-03-30] MEDS: TBO-FILGRASTIM 300 MCG/0.5 ML SYRINGE SUBQ SCH (11:07)
[2017-03-30 11:19] LABS: BASOPHILS % (AUTO) 0.2 %; EOSINOPHILS % (AUTO) 6.2 %; HCT - HEMATOCRIT 32.7 % (37.0-47.0); HGB - HEMOGLOBIN 10.7 g/dL (12.0-16.0); LYMPHOCYTES % (AUTO) 46.5 %; MEAN CORPUSCULAR HEMOGLOBIN 28.8 pg (27.0-31.0); MEAN CORPUSCULAR HGB CONC 32.8 g/dL (32.0-36.0); MEAN CORPUSCULAR VOLUME 87.8 fL (81.0-99.0); MEAN PLATELET VOLUME 8.6 fL (7.9-10.8); MONOCYTES % (AUTO) 24.8 %; NEUTROPHILS % (AUTO) 22.3 %; RED BLOOD COUNT 3.73 10^6/uL (4.20-5.40); RED CELL DISTRIBUTION WIDTH 13.9 % (12.0-15.0); UNCORRECTED WHITE BLOOD COUNT 2.4 x10^3/uL; WHITE BLOOD COUNT 2.4 x10^3/uL (4.8-10.8)
[2017-03-30 12:10] LABS: BAND NEUTROPHILS % (MANUAL) 10 %; LYMPHOCYTES % (MANUAL) 50 %; NEUTROPHILS % (MANUAL) 0 %
[2017-03-30 12:11] LABS: BASOPHILS % (MANUAL) 3 %; EOSINOPHILS % (MANUAL) 5 %
[2017-03-30 12:12] LABS: NP AUTO DIFFERENTIAL? YES; NP MAN DIFFERENTIAL? NO; PLATELET ESTIMATE, MANUAL NORMAL (130-450,000) (NORMAL); PLATELET MORPHOLOGY 1+ GIANT PLATELETS (NORMAL)
[2017-03-30] MEDS ORDERED: SODIUM CHLORIDE FLUSH 0.9% 10 ML SYRINGE IVP ONE ×2 (13:14→17:41)
[2017-03-30] MEDS ORDERED: SODIUM CHLORIDE 0.9% 250 ML IV ONE (15:42)
--- NOTE | 2017-03-30 16:58 | PROVIDER PROGRESS NOTE ---
Assessment/Plan - Problem List (1) Cellulitis and abscess of face Assessment/Plan: Improving. Continue meds. I have reached out to her Dentist for a name of an oral surgeon for either transfer or [facility] (2) Osteomyelitis Qualifiers: Osteomyelitis type: other acute Assessment/Plan: Continue long-term iv antibiotics (4) Neutropenia Qualifiers: Neutropenia type: unspecified Qualified Code(s): D70.9 - Neutropenia, unspecified Assessment/Plan: No significant increase in ANC Continue Granix - Current Meds Current Meds: Current Medications Generic Name Dose Route Start Last Admin Trade Name Freq PRN Reason Stop Dose Admin Chlorhexidine Gluconate 15 ml 03/27/17 21:00 03/30/17 09:37 Peridex PO 15 ml BID SANJAY Administration Diazepam 10 mg 03/29/17 12:30 03/29/17 23:41 Valium PO 10 mg QPM PRN Administration Anxiety Hydromorphone HCl 1 mg 03/27/17 18:38 03/30/17 15:51 Dilaudid Inj IVP 1 mg Q2HR PRN Administration Pain 8 to 10 Doxycycline Hyclate 100 mg/ 100 mls @ 100 mls/hr 03/30/17 01:00 03/30/17 15:33 Sodium Chloride IV 100 mls/hr 0100,1300 SANJAY Administration Linezolid 300 mls @ 300 mls/hr 03/29/17 15:00 03/30/17 15:46 Zyvox 600 Mg/300 Ml IV 300 mls/hr 0300,1500 SANJAY Administration Doxycycline Hyclate 100 mg/ 100 mls @ 100 mls/hr 03/30/17 02:00 03/30/17 15:34 Sodium Chloride IV 100 mls/hr 0200,1400 SANJAY Administration Losartan Potassium 100 mg 03/30/17 08:30 03/30/17 08:01 Cozaar PO 50 mg DAILY SANJAY Administration Non-Formulary Medication 1 tab 03/29/17 10:30 03/30/17 08:15 Levonorgestrel-Ethin Estradiol [Setlakin 0.15 Mg-0.03 Mg Tab] PO Not Given DAILY SANJAY Ondansetron HCl 4 mg 03/28/17 05:37 03/30/17 11:03 Zofran Inj IVP 4 mg Q4HR PRN Administration Nausea / Vomiting Oxycodone/Acetaminophen 1 tab 03/28/17 09:02 03/30/17 13:20 Percocet 5 Mg/325 Mg PO 1 tab Q4HR PRN Administration PAIN Polyethylene Glycol 17 gm 03/28/17 09:00 03/30/17 08:16 Miralax PO Not Given DAILY SANJAY Sodium Chloride 10 ml 03/27/17 18:38 03/30/17 13:21 Normal Saline Flush 0.9% IVP 20 ml PRN PRN Administration NEEDED PER PROVIDER ORDERS Sodium Chloride 10 ml 03/27/17 22:00 03/30/17 15:34 Normal Saline Flush 0.9% IVP 10 ml Q8HR SANJAY Administration Tbo-Filgrastim 300 mcg 03/28/17 10:00 03/30/17 11:07 Granix SUBQ 300 mcg DAILY SANJAY Administration - Lab Result Fish Bone Diagrams: 03/30/17 10:50 03/27/17 10:55 - Additional Planning My Orders: My Active Orders 03/30/17 01:00 Doxycycline Inj [Vibramycin Inj] 100 mg Sodium Chloride 0.9% Minibag [Normal Saline 0.9% Minibag] 100 ml IV 0100,1300 03/30/17 02:00 Doxycycline Inj [Vibramycin Inj] 100 mg Sodium Chloride 0.9% Minibag [Normal Saline 0.9% Minibag] 100 ml IV 0200,1400 03/30/17 08:30 Losartan [Cozaar] 100 mg PO DAILY 03/31/17 06:00 Levothyroxine [Synthroid] 100 mcg PO 0600 Subjective - Subjective Patient Reports: Feeling Better Nursing Reports: No Complaints Objective Vital Signs: Vital Signs - 24 hr 03/29/17 03/30/17 03/30/17 23:47 07:58 15:29 Temperature 36.8 C 36.6 C 36.6 C Heart Rate [ 78 72 Apical] Heart Rate [ 74 Brachial] Respiratory 16 16 18 Rate Blood Pressure 117/62 141/82 H [Left] Blood Pressure 134/71 H [Right Brachial artery] O2 Saturation 96 96 98 Oxygen O2 Source Room air I&O (Last 24 Hrs): Intake and Output Totals x24h 03/28/17 03/29/17 03/30/17 23:59 23:59 23:59 Intake Total 4169 1895 2166 Balance 4169 1895 2166 HEENT: Other (Less swelling, more localized firmer indurated area, no redness or warmth) - Results Results: Laboratory Results WBC 2.4 x10^3/uL (4.8-10.8) L 03/30/17 10:50 RBC 3.73 10^6/uL (4.20-5.40) L 03/30/17 10:50 Hgb 10.7 g/dL (12.0-16.0) L 03/30/17 10:50 Hct 32.7 % (37.0-47.0) L 03/30/17 10:50 MCV 87.8 fL (81.0-99.0) 03/30/17 10:50 MCH 28.8 pg (27.0-31.0) 03/30/17 10:50 MCHC 32.8 g/dL (32.0-36.0) 03/30/17 10:50 RDW 13.9 % (12.0-15.0) 03/30/17 10:50 Plt Count 289 10^3/uL (130-450) 03/30/17 10:50 MPV 8.6 fL (7.9-10.8) 03/30/17 10:50 Neut # Not Reportable 03/30/17 10:50 Lymph # Not Reportable 03/30/17 10:50 [place] # Not Reportable 03/30/17 10:50 Eos # Not Reportable 03/30/17 10:50 Baso # Not Reportable 03/30/17 10:50 Absolute Nucleated RBC Not Reportable 03/30/17 10:50 Total Counted 100 03/29/17 05:21 Band Neuts % (Manual) 10 % (0-10) 03/30/17 10:50 Reactive Lymphs % (Man) 5 % 03/30/17 10:50 Metamyelocytes % 6 % (-0) H 03/30/17 10:50 Neutrophils # (Manual) 0.2 10^3/uL (1.5-6.6) L* 03/30/17 10:50 Lymphocytes # (Manual) 1.3 10^3/uL (1.5-3.5) L 03/30/17 10:50 Monocytes # (Manual) 0.5 10^3/uL (0.0-1.0) 03/30/17 10:50 Eosinophils # (Manual) 0.1 10^3/uL (0-0.7) 03/30/17 10:50 Basophils # (Manual) 0.1 10^3/uL (0-0.1) 03/30/17 10:50 Nucleated RBCs Not Reportable 03/30/17 10:50 Differential Comment MANUAL DIFFERENTIAL 03/29/17 05:21 Manual Slide Review Indicated 03/28/17 09:39 Platelet Estimate NORMAL (130-450,000) (NORMAL) 03/30/17 10:50 Platelet Morphology 1+ GIANT PLATELETS (NORMAL) 03/30/17 10:50 RBC Morph Micro Appear NORMAL APPEARANCE (NORMAL) 03/30/17 10:50 Sodium 138 mmol/L (135-145) 03/27/17 10:55 Potassium 4.4 mmol/L (3.5-5.0) 03/27/17 10:55 Chloride 106 mmol/L (101-111) 03/27/17 10:55 Carbon Dioxide 23 mmol/L (21-32) 03/27/17 10:55 Anion Gap 9.0 (6-13) 03/27/17 10:55 BUN 12 mg/dL (6-20) 03/27/17 10:55 Creatinine 0.8 mg/dL (0.4-1.0) 03/27/17 10:55 Estimated GFR (MDRD) 78 (>89) L 03/27/17 10:55 Glucose 91 mg/dL (70-100) 03/27/17 10:55 Calcium 9.4 mg/dL (8.5-10.3) 03/27/17 10:55 Serum HCG, Qual NEGATIVE 03/27/17 10:55
[2017-03-30] MEDS ORDERED: ONDANSETRON 4 MG/2 ML VIAL ONE (17:59)
[2017-03-30] MEDS ORDERED: HYDROmorphone 1 MG/ML SYRINGE ONE (17:59)
[2017-03-30] MEDS: diazePAM 5 MG TABLET PO PRN (22:06)
[2017-03-31] MEDS: DOXYCYCLINE INJ 100 MG in SODIUM CHLORIDE 0.9% MINIBAG 100 ML IV SCH ×5 (01:39→14:09)
[2017-03-31] MEDS: HYDROmorphone 1 MG/ML SYRINGE IVP PRN ×5 (01:47→16:16)
[2017-03-31] MEDS: LINEZOLID 600 MG/300 ML 300 ML IV SCH ×2 (03:52→15:04)
[2017-03-31] MEDS: ONDANSETRON 4 MG/2 ML VIAL IVP PRN (04:15)
[2017-03-31] MEDS: LEVOTHYROXINE 100 MCG TABLET PO SCH (05:14)
[2017-03-31] MEDS: oxyCOD/ACETAMIN 5 MG/325 MG TABLET PO PRN ×3 (05:14→19:12)
[2017-03-31] MEDS: CHLORHEXIDINE GLUCONATE 15 ML UDC PO SCH ×2 (09:58→20:38)
[2017-03-31] MEDS: LOSARTAN 50 MG TABLET PO SCH (09:58)
[2017-03-31] MEDS: POLYETHYLENE GLYCOL 3350 17 GM PACKET PO SCH (10:00)
[2017-03-31] MEDS: LEVONORGESTREL ETHIN ESTRADIOL PO SCH (10:00)
[2017-03-31] MEDS: TBO-FILGRASTIM 300 MCG/0.5 ML SYRINGE SUBQ SCH (10:20)
[2017-03-31] MEDS: diazePAM 5 MG TABLET PO PRN ×2 (12:46→22:23)
[2017-03-31] MEDS: SODIUM CHLORIDE FLUSH 0.9% 10 ML SYRINGE IVP PRN ×3 (12:46→20:39)
--- NOTE | 2017-03-31 15:52 | PROVIDER PROGRESS NOTE ---
Assessment/Plan - Problem List (1) Cellulitis and abscess of face Assessment/Plan: I will be contacting a facility and oral surgeon for abscess debridement Continue present meds and plan (2) Osteomyelitis Qualifiers: Osteomyelitis type: other acute Assessment/Plan: Duration of iv antibiotics will need to be determined after debridement of abcess. Pt already has a PICC line (4) Neutropenia Qualifiers: Neutropenia type: unspecified Qualified Code(s): D70.9 - Neutropenia, unspecified Assessment/Plan: No change in low ANC Continue meds and plan - Current Meds Current Meds: Current Medications Generic Name Dose Route Start Last Admin Trade Name Freq PRN Reason Stop Dose Admin Chlorhexidine Gluconate 15 ml 03/27/17 21:00 03/31/17 09:58 Peridex PO 15 ml BID SANJAY Administration Diazepam 10 mg 03/29/17 12:30 03/31/17 12:46 Valium PO 10 mg QPM PRN Administration Anxiety Hydromorphone HCl 1 mg 03/27/17 18:38 03/31/17 12:46 Dilaudid Inj IVP 1 mg Q2HR PRN Administration Pain 8 to 10 Doxycycline Hyclate 100 mg/ 100 mls @ 100 mls/hr 03/30/17 01:00 03/31/17 14:09 Sodium Chloride IV 100 mls/hr 0100,1300 SANJAY Administration Linezolid 300 mls @ 300 mls/hr 03/29/17 15:00 03/31/17 15:04 Zyvox 600 Mg/300 Ml IV 300 mls/hr 0300,1500 SANJAY Administration Doxycycline Hyclate 100 mg/ 100 mls @ 100 mls/hr 03/30/17 02:00 03/31/17 02:47 Sodium Chloride IV 100 mls/hr 0200,1400 SANJAY Administration Levothyroxine Sodium 100 mcg 03/31/17 06:00 03/31/17 05:14 Synthroid PO 100 mcg 0600 SANJAY Administration Losartan Potassium 100 mg 03/30/17 08:30 03/31/17 09:58 Cozaar PO 50 mg DAILY SANJAY Administration Non-Formulary Medication 1 tab 03/29/17 10:30 03/31/17 10:00 Levonorgestrel-Ethin Estradiol [Setlakin 0.15 Mg-0.03 Mg Tab] PO Not Given DAILY SANJAY Ondansetron HCl 4 mg 03/28/17 05:37 03/31/17 04:15 Zofran Inj IVP 4 mg Q4HR PRN Administration Nausea / Vomiting Oxycodone/Acetaminophen 1 tab 03/28/17 09:02 03/31/17 11:11 Percocet 5 Mg/325 Mg PO 1 tab Q4HR PRN Administration PAIN Polyethylene Glycol 17 gm 03/28/17 09:00 03/31/17 10:00 Miralax PO Not Given DAILY SANJAY Sodium Chloride 10 ml 03/27/17 18:38 03/31/17 12:46 Normal Saline Flush 0.9% IVP 10 ml PRN PRN Administration NEEDED PER PROVIDER ORDERS Sodium Chloride 10 ml 03/27/17 22:00 03/30/17 22:06 Normal Saline Flush 0.9% IVP 10 ml Q8HR SANJAY Administration Tbo-Filgrastim 300 mcg 03/28/17 10:00 03/31/17 10:20 Granix SUBQ 300 mcg DAILY SANJAY Administration - Lab Result Fish Bone Diagrams: 03/30/17 10:50 03/27/17 10:55 - Additional Planning My Orders: My Active Orders 03/31/17 06:00 Levothyroxine [Synthroid] 100 mcg PO 0600 Subjective - Subjective Patient Reports: Feeling Better (Less swelling of submandibular area) Nursing Reports: No Complaints Objective Vital Signs: Vital Signs - 24 hr 03/31/17 03/31/17 03/31/17 00:08 08:04 15:28 Temperature 36.8 C 37.0 C 36.7 C Heart Rate [ 76 72 72 Brachial] Respiratory 16 16 16 Rate Blood Pressure 114/56 L 132/82 H [Left] Blood Pressure 144/92 H [Right Brachial artery] O2 Saturation 95 97 98 Oxygen O2 Source Room air I&O (Last 24 Hrs): Intake and Output Totals x24h 03/29/17 03/30/17 03/31/17 23:59 23:59 23:59 Intake Total 1895 6 1900 Balance [id number] 1900 General: Alert, No acute distress HEENT: Other (less submandibular swelling, no redness or warmth, same sized indurated area of R lateral jaw) Respiratory: No respiratory distress Extremities: No edema - Results Results: Laboratory Results WBC 2.4 x10^3/uL (4.8-10.8) L 03/30/17 10:50 RBC 3.73 10^6/uL (4.20-5.40) L 03/30/17 10:50 Hgb 10.7 g/dL (12.0-16.0) L 03/30/17 10:50 Hct 32.7 % (37.0-47.0) L 03/30/17 10:50 MCV 87.8 fL (81.0-99.0) 03/30/17 10:50 MCH 28.8 pg (27.0-31.0) 03/30/17 10:50 MCHC 32.8 g/dL (32.0-36.0) 03/30/17 10:50 RDW 13.9 % (12.0-15.0) 03/30/17 10:50 Plt Count 289 10^3/uL (130-450) 03/30/17 10:50 MPV 8.6 fL (7.9-10.8) 03/30/17 10:50 Neut # Not Reportable 03/30/17 10:50 Lymph # Not Reportable 03/30/17 10:50 [place] # Not Reportable 03/30/17 10:50 Eos # Not Reportable 03/30/17 10:50 Baso # Not Reportable 03/30/17 10:50 Absolute Nucleated RBC Not Reportable 03/30/17 10:50 Total Counted 100 03/29/17 05:21 Band Neuts % (Manual) 10 % (0-10) 03/30/17 10:50 Reactive Lymphs % (Man) 5 % 03/30/17 10:50 Metamyelocytes % 6 % (-0) H 03/30/17 10:50 Neutrophils # (Manual) 0.2 10^3/uL (1.5-6.6) L* 03/30/17 10:50 Lymphocytes # (Manual) 1.3 10^3/uL (1.5-3.5) L 03/30/17 10:50 Monocytes # (Manual) 0.5 10^3/uL (0.0-1.0) 03/30/17 10:50 Eosinophils # (Manual) 0.1 10^3/uL (0-0.7) 03/30/17 10:50 Basophils # (Manual) 0.1 10^3/uL (0-0.1) 03/30/17 10:50 Nucleated RBCs Not Reportable 03/30/17 10:50 Differential Comment MANUAL DIFFERENTIAL 03/29/17 05:21 Manual Slide Review Indicated 03/28/17 09:39 Platelet Estimate NORMAL (130-450,000) (NORMAL) 03/30/17 10:50 Platelet Morphology 1+ GIANT PLATELETS (NORMAL) 03/30/17 10:50 RBC Morph Micro Appear NORMAL APPEARANCE (NORMAL) 03/30/17 10:50 Sodium 138 mmol/L (135-145) 03/27/17 10:55 Potassium 4.4 mmol/L (3.5-5.0) 03/27/17 10:55 Chloride 106 mmol/L (101-111) 03/27/17 10:55 Carbon Dioxide 23 mmol/L (21-32) 03/27/17 10:55 Anion Gap 9.0 (6-13) 03/27/17 10:55 BUN 12 mg/dL (6-20) 03/27/17 10:55 Creatinine 0.8 mg/dL (0.4-1.0) 03/27/17 10:55 Estimated GFR (MDRD) 78 (>89) L 03/27/17 10:55 Glucose 91 mg/dL (70-100) 03/27/17 10:55 Calcium 9.4 mg/dL (8.5-10.3) 03/27/17 10:55 Serum HCG, Qual NEGATIVE 03/27/17 10:55
[2017-03-31] MEDS ORDERED: ALPRAZolam 0.25 MG TABLET PO PRN (18:55)
[2017-03-31] MEDS: diphenhydrAMINE ELIXIR 25 MG/10 ML UDC PO PRN (19:12)
[2017-03-31] MEDS ORDERED: oxyCOD/ACETAMIN 5 MG/325 MG TABLET PO SCH (19:45)
[2017-03-31] MEDS: SODIUM CHLORIDE FLUSH 0.9% 10 ML SYRINGE IVP SCH (20:39)
[2017-03-31] MEDS ORDERED: GABAPENTIN 300 MG CAPSULE PO SCH (21:00)
[2017-04-01] MEDS: HYDROmorphone 1 MG/ML SYRINGE IVP PRN ×4 (00:04→18:02)
[2017-04-01] MEDS: diphenhydrAMINE ELIXIR 25 MG/10 ML UDC PO PRN (01:46)
[2017-04-01] MEDS: DOXYCYCLINE INJ 100 MG in SODIUM CHLORIDE 0.9% MINIBAG 100 ML IV SCH ×3 (01:48→14:30)
[2017-04-01] MEDS: ONDANSETRON 4 MG/2 ML VIAL IVP PRN (03:05)
[2017-04-01] MEDS: oxyCOD/ACETAMIN 5 MG/325 MG TABLET PO PRN ×3 (03:05→14:49)
[2017-04-01] MEDS: LINEZOLID 600 MG/300 ML 300 ML IV SCH ×2 (03:05→14:41)
[2017-04-01] MEDS: LEVOTHYROXINE 100 MCG TABLET PO SCH (05:50)
[2017-04-01] MEDS: SODIUM CHLORIDE FLUSH 0.9% 10 ML SYRINGE IVP SCH ×4 (05:51→18:06)
[2017-04-01] MEDS: SODIUM CHLORIDE FLUSH 0.9% 10 ML SYRINGE IVP PRN ×3 (05:51→18:06)
[2017-04-01] MEDS ORDERED: diazePAM 5 MG TABLET PO SCH (08:00)
[2017-04-01] MEDS: LOSARTAN 50 MG TABLET PO SCH (08:57)
[2017-04-01] MEDS: LEVONORGESTREL ETHIN ESTRADIOL PO SCH (08:57)
[2017-04-01] MEDS: CHLORHEXIDINE GLUCONATE 15 ML UDC PO SCH (08:57)
[2017-04-01] MEDS: POLYETHYLENE GLYCOL 3350 17 GM PACKET PO SCH (08:58)
[2017-04-01] MEDS: TBO-FILGRASTIM 300 MCG/0.5 ML SYRINGE SUBQ SCH (08:59)
--- NOTE | 2017-04-01 14:21 | Discharge Plan ---
Discharge Plan Disposition: 02 Transfer Acute Care Hosp Condition: Fair Diet: Regular Activity Restrictions: Activity as Tolerated Shower Restrictions: No Driving Restrictions: No No Smoking: If you smoke, Please STOP! Call for help. Follow-up with: Ruth Solomon ARNP [Primary Care Provider] -
[2017-04-01 15:41] VITALS: BP 121/74
--- NOTE | 2017-04-02 07:33 | DISCHARGE SUMMARY ---
DATE OF ADMISSION: 03/27/2017 DATE OF TRANSFER: 04/01/2017 (to [facility], [facility]). HISTORY OF PRESENT ILLNESS: This is a 46-year-old white female with a history of gastric bypass surge ry in 2002 for morbid obesity, abdominal adhesions for which she has needed surgery, history of hypot hyroidism, bipolar disorder, intermittent abdominal pain, chronic idiopathic neutropenia (this has be en worked up extensively at multiple specialty centers with no etiology found). She has a history of frequent infections because of her neutropenia. The patient presented with a failure of 2 courses of oral Keflex treatment for a right lower mandible dental abscess. When she presented to the emergency room, she had marked swelling of the right lower jaw, painful swallowing, no airway complaints. She w as admitted for management of the facial cellulitis. MEDICATIONS PRIOR TO ADMISSION 1. Synthroid. 2. Inderal-XL. 3. Atacand. 4. ProAir HFA. 5. Zofran p.r.n. 6. Zomig b.i.d. 7. EpiPen p.r.n. allergic reactions. 8. Estradiol. 9. Tylenol with codeine p.r.n. pain. 10. Cytomel. ALLERGIES THE PATIENT HAS MULTIPLE ALLERGIES INCLUDING 1. CLINDAMYCIN. 2. PROTONIX. 3. PENICILLIN. 4. COMPAZINE. 5. CODEINE. 6. VICODIN. 7. MORPHINE. 8. PROMETHAZINE. 9. AMBIEN. 10. IODINATED DYE. 11. MUSHROOMS. 12. BEE STINGS. HOSPITAL COURSE AND DISCHARGE DIAGNOSES 1. Cellulitis from dental abscess. 2. Osteomyelitis of the right lower mandible. 3. Chronic idiopathic neutropenia, which predisposes her to infections. 4. Obesity despite prior gastric bypass surgery. 5. Bipolar disorder, stable on treatment. 6. Hypertension. 7. Migraine headache. 8. Fibromyalgia. The patient was started on empiric IV antibiotics after cultures were done. The cultures had no growt h throughout the admission. She was maintained on doxycycline 200 mg IV b.i.d. and Zyvox 600 mg/300 m L IV b.i.d. and topical Peridex 15 mL p.o. b.i.d. With this management, the patient had significant i mprovement in the swelling of the face and jaw pain; however, she developed a localized area of indur ation measuring approximately 2 cm x 2 cm x 2 cm, which was felt to be residual abscess that was deem ed to be needing drainage. The patient was accepted for oral maxillofacial surgical treatment by Dr. Gordon at [facility], and accepted in transfer on the hospitalist service at [facility], and she was transferred there in stable condition on 04/01/2017. The patient's blood pressure, hypothyroidism, bipolar disorder, abdominal pain, fibromyalgia pain, an d insomnia were managed with medications, that she had preadmission and new orders for Xanax, Benadry l, gabapentin, Dilaudid IV, MiraLax, Granix (generic for Neupogen). FOLLOWUP: This will be determined after discharge from [facility]. JOB #: [id number] EXT JOB #:[id number]
== END 2017-04-01 18:09 | disposition short-term general hospital (02) | DRG 158 ==
LOC: ED 09:21 → MS2 18:38
PROVIDERS: ADMIT Internal Medicine; ATTEND Internal Medicine
PROC: 05H533Z Insertion of Infusion Device into Right Subclavian Vein, Percutaneous Approach (ICD-10-PCS; principal; 2017-03-29)
DX: M27.2 Inflammatory conditions of jaws (principal); L03.211 Cellulitis of face; Z68.41 Body mass index [BMI] 40.0-44.9, adult; K04.7 Periapical abscess without sinus; D70.8 Other neutropenia; E66.9 Obesity, unspecified; F31.9 Bipolar disorder, unspecified; I10 Essential (primary) hypertension; G43.909 Migraine, unspecified, not intractable, without status migrainosus; M79.7 Fibromyalgia; J45.909 Unspecified asthma, uncomplicated; E03.9 Hypothyroidism, unspecified; F41.0 Panic disorder [episodic paroxysmal anxiety]; G47.00 Insomnia, unspecified; E28.2 Polycystic ovarian syndrome; Z79.51 Long term (current) use of inhaled steroids; Z79.891 Long term (current) use of opiate analgesic; Z79.899 Other long term (current) drug therapy; Z98.84 Bariatric surgery status
CPT/HCPCS: 36415; 36569; 70491; 70543; 71010; 80048; 84703; 85025; 87040; 96365; 96375; 96376; 99284

== ENCOUNTER 2017-04-01 18:10 | Outpatient (CLI) | payer MEDICARE, OTHER | END 2017-04-01 18:11 | disposition short-term general hospital (02) | LOC: EMS 18:10 | PROVIDERS: ATTEND Surgery | DX: L03.211 Cellulitis of face (principal) | CPT/HCPCS: A0170; A0425; A0429 ==

== ENCOUNTER 2017-11-26 13:18 | Emergency (ER) | payer MEDICARE, OTHER ==
--- NOTE | 2017-11-26 14:18 | ED Physician Documentation ---
PD HPI CHEST PAIN - Stated complaint Stated Complaint: CHEST PX - Chief complaint Chief Complaint: Cardiac - History obtained from History obtained from: Patient - History of Present Illness Timing - onset: How many days ago (2) Timing - onset during: Rest Timing - details: Gradual onset, Still present, Waxing and waning Quality: Pressure, Aching Location: Substernal Radiation: Back Improved by: No: Rest Worsened by: No: Exertion, Inspiration Associated symptoms: No: Shortness of air Similar symptoms before: No diagnosis (has had intermittent chest pains in the past. Had nuclear stress few months ago, and normal apppear) Review of Systems Constitutional: denies: Fever, Chills, Myalgias Nose: denies: Rhinorrhea / runny nose, Congestion Throat: denies: Sore throat Cardiac: denies: Chest pain / pressure, Palpitations Respiratory: reports: Dyspnea, Cough, Wheezing PD PAST MEDICAL HISTORY - Past Medical History Cardiovascular: None (had cardiac cath several months ago (about 3 months) without occlusions found. 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, Other : None HEENT: None, Other Psych: Bipolar disorder, Panic attacks Musculoskeletal: Fibromyalgia, Fatigue Derm: None Other Past Medical History: Chronic white cell deficiency - Past Surgical History Past Surgical History: Yes General: Gastric surgery HEENT: Tonsil/Adenoidectomy, Other - Present Medications Home Medications: Ambulatory Orders Medication Instructions Recorded Confirmed Levothyroxine [Synthroid] 100 mcg PO DAILY 05/25/13 03/28/17 Propranolol HCl [Inderal Xl] 120 mg ORAL DAILY 11/25/14 03/27/17 Candesartan Cilexetil [Atacand] 32 mg PO DAILY 05/20/15 03/28/17 Albuterol Sulfate [Proair Hfa 1 puffs INH Q4HR PRN 07/16/15 03/28/17 Inhaler] Ondansetron [Zofran Odt] 8 mg PO Q8HR PRN 07/16/15 03/27/17 Zolmitriptan [Zomig] 5 mg INH BID PRN 07/16/15 03/27/17 Epinephrine [Epipen 2-Stephen] 0.3 mg IM DAILY PRN 01/19/16 03/28/17 Oxycodone HCl/Acetaminophen 1 each PO Q6H PRN #10 tablet 05/13/16 03/28/17 [Percocet 10-325 mg Tablet] Liothyronine [Cytomel] 10 mcg PO DAILY 03/27/17 03/28/17 oxyCODONE/ACET 5/325 [Percocet 5 2 tab PO Q6HR PRN #0 tablet 04/01/17 mg/325 mg] Famotidine [Pepcid] 20 mg PO BID #30 tablet 11/26/17 Levonorgestrel-Ethin Estradiol 1 tab PO DAILY 11/26/17 [Jolessa 0.15 mg-0.03 mg Tablet] Ondansetron HCl [Zofran] 4 mg PO Q6H PRN #20 tablet 11/26/17 Oxycodone HCl/Acetaminophen 1 each PO Q6H PRN #20 tablet 11/26/17 [Percocet 5-325 mg Tablet] Sucralfate 1 gm PO TID #20 tablet 11/26/17 - Allergies Allergies/Adverse Reactions: Allergies Allergy/AdvReac Type Severity Reaction Status Date / Time clindamycin Allergy Severe Rash Verified 05/10/16 21:03 pantoprazole sodium * Allergy Severe Rash Verified 05/10/16 21:03 [From Protonix] Penicillins Allergy Severe Respiratory Verified 05/10/16 21:03 prochlorperazine edisylate * Allergy Severe panic Verified 05/10/16 21:03 [From Compazine] attack prochlorperazine maleate * Allergy Severe Edema Verified 05/10/16 21:03 [From Compazine] mushroom Allergy Unknown Rash Verified 05/10/16 21:03 codeine Allergy Emesis Verified 05/10/16 21:03 hydrocodone bitartrate * Allergy Itching Verified 05/10/16 21:03 [From Vicodin] morphine AdvReac Severe Headache Verified 05/10/16 21:03 promethazine AdvReac Severe Anxiety Verified 05/10/16 21:03 zolpidem tartrate * AdvReac Severe Hallucinati Verified 05/10/16 21:03 [From Ambien] ons Iodinated Contrast- Oral and AdvReac Rash Verified 03/27/17 12:40 IV Dye Bee stings Allergy Anaphylaxis Uncoded 05/10/16 21:04 - Social History Does the pt smoke?: No Smoking Status: Never smoker Does the pt drink ETOH?: No Does the pt have substance abuse?: No - Family History Family history: reports: CAD - Immunizations Immunizations are current?: Yes - POLST Patient has POLST: No PD ED PE NORMAL - Vitals Vital signs reviewed: Yes - General General: Alert and oriented X 3, No acute distress, Well developed/nourished - HEENT HEENT: Pharynx benign - Neck Neck: Supple, no meningeal sign, No adenopathy - Cardiac Cardiac: RRR, No murmur, No gallop - Respiratory Respiratory: No respiratory distress, Clear bilaterally Results - Vitals Vitals: Oxygen O2 Source Room air - EKG (time done) 13:27 Rhythm: NSR [place]: Normal Intervals: Normal NM - Labs Labs: Laboratory Tests 11/26/17 11/26/17 11/26/17 15:17 15:17 15:17 WBC 3.2 L RBC 3.92 L Hgb 11.0 L Hct 33.6 L MCV 85.7 MCH 28.2 MCHC 32.8 RDW 15.5 H Plt Count 323 MPV 8.2 Neut # Not Reportable Lymph # Not Reportable [place] # Not Reportable Eos # Not Reportable Baso # Not Reportable Absolute Nucleated RBC Not Reportable Total Counted 100 Band Neuts % (Manual) 0 Abnorm Lymph % (Manual) 0 Nucleated RBC % Not Reportable Neutrophils # (Manual) 0.1 L* Lymphocytes # (Manual) 2.7 Monocytes # (Manual) 0.2 Eosinophils # (Manual) 0.1 Basophils # (Manual) 0.1 Differential Comment MANUAL DIFFERENTIAL Manual Slide Review Indicated WBC Morphology NORMAL APPEARANCE Platelet Estimate NORMAL (130-450,000) Platelet Morphology NORMAL APPEARANCE RBC Morph Micro Appear 1+ POLYCHROMASIA Sodium 137 Potassium 3.6 Chloride 108 Carbon Dioxide 21 Anion Gap 8.0 BUN 10 Creatinine 0.9 Estimated GFR (MDRD) 67 L Glucose 86 Calcium 9.0 Total Bilirubin 0.9 AST 17 ALT 14 Alkaline Phosphatase 48 Troponin I < 0.04 B-Natriuretic Peptide Total Protein 6.4 L Albumin 3.3 Globulin 3.1 Albumin/Globulin Ratio 1.1 Lipase 16 L 11/26/17 15:17 WBC RBC Hgb Hct MCV MCH MCHC RDW Plt Count MPV Neut # Lymph # [place] # Eos # Baso # Absolute Nucleated RBC Total Counted Band Neuts % (Manual) Abnorm Lymph % (Manual) Nucleated RBC % Neutrophils # (Manual) Lymphocytes # (Manual) Monocytes # (Manual) Eosinophils # (Manual) Basophils # (Manual) Differential Comment Manual Slide Review WBC Morphology Platelet Estimate Platelet Morphology RBC Morph Micro Appear Sodium Potassium Chloride Carbon Dioxide Anion Gap BUN Creatinine Estimated GFR (MDRD) Glucose Calcium Total Bilirubin AST ALT Alkaline Phosphatase Troponin I B-Natriuretic Peptide 189 H Total Protein Albumin Globulin Albumin/Globulin Ratio Lipase - Rads (name of study) chest xray Radiology: Prelim report reviewed, EMP read contemporaneously (slight change prese) PD MEDICAL DECISION MAKING - ED course Complexity details: reviewed results, re-evaluated patient, considered differential, d/w patient Departure - Departure Disposition: Home, Self Care Clinical Impression: Acute epigastric pain Condition: Stable Record reviewed to determine appropriate education?: Yes Instructions: ED Epigastric Pain [facility] Follow-Up: Ruth Solomon ARNP [Primary Care Provider] - Prescriptions: Famotidine [Pepcid] 20 mg PO BID #30 tablet Ondansetron HCl [Zofran] 4 mg PO Q6H PRN #20 tablet PRN Reason: Nausea / Vomiting Oxycodone HCl/Acetaminophen [Percocet 5-325 mg Tablet] 1 each PO Q6H PRN #20 tablet PRN Reason: Pain Sucralfate 1 gm PO TID #20 tablet Comments: This sounds likely to be stomach or upper intestinal cause of the pain. Use famotidine acid field examiner twice daily for the next week or 2. Also sucralfate to coat the area 3 times a day for the next 5 or 6 days. Ondansetron if needed for nausea. Percocet if needed for pain. Bring a sample of your stool to your primary care for her to be tested for H. pylori infection. Follow-up in 3 or 4 days with your primary care, call for an appointment. Discharge Date/Time: 11/26/17 17:58
[2017-11-26] MEDS ORDERED: MAG HYDROX/AL HYDROX/SIMETH 30 ML UDC PO STA (14:37)
[2017-11-26] MEDS ORDERED: LIDOCAINE VISCOUS 2% 15 ML UDC MM STA (14:37)
[2017-11-26] MEDS ORDERED: ONDANSETRON ODT 4 MG TABLET TL STA (14:38)
--- NOTE | 2017-11-26 15:04 | XRAY Report ---
EXAM: CHEST RADIOGRAPHY EXAM DATE: 11/26/2017 02:40 PM. CLINICAL HISTORY: Substernal CP. COMPARISON: 03/29/2017 TECHNIQUE: 2 views. FINDINGS: Lungs/Pleura: No focal opacities evident. No pleural effusion. No pneumothorax. Normal volumes. Mediastinum: Heart and mediastinal contours are unremarkable. Other: Surgical clips right upper quadrant. Unremarkable bony structures IMPRESSION: Negative 2-view chest radiography. [facility] Referring Provider Line: [phone] SITE ID: [id number]
[2017-11-26 15:28] LABS: EOSINOPHILS % (AUTO) 5.1 %; LYMPHOCYTES % (AUTO) 73.1 %; MEAN CORPUSCULAR HEMOGLOBIN 28.2 pg (27.0-31.0); MEAN CORPUSCULAR HGB CONC 32.8 g/dL (32.0-36.0); MEAN CORPUSCULAR VOLUME 85.7 fL (81.0-99.0); MEAN PLATELET VOLUME 8.2 fL (7.9-10.8); MONOCYTES % (AUTO) 17.8 %; PLT - PLATELET COUNT 323 10^3/uL (130-450); RED BLOOD COUNT 3.92 10^6/uL (4.20-5.40); RED CELL DISTRIBUTION WIDTH 15.5 % (12.0-15.0); WHITE BLOOD COUNT 3.2 x10^3/uL (4.8-10.8)
[2017-11-26 15:35] LABS: ABNORMAL LYMPHS % (MANUAL) 0 %; ALBUMIN 3.3 g/dL (3.2-5.5); ALBUMIN/GLOBULIN RATIO 1.1 (1.0-2.2); BAND NEUTROPHILS % (MANUAL) 0 %; BILIRUBIN,TOTAL 0.9 mg/dL (0.2-1.0); CREATININE 0.9 mg/dL (0.4-1.0); TOTAL PROTEIN 6.4 g/dL (6.7-8.2)
[2017-11-26 15:46] LABS: NEUTROPHILS % (MANUAL) 3 %
[2017-11-26 15:47] LABS: BASOPHILS # (MANUAL) 0.1 10^3/uL (0-0.1); BASOPHILS % (MANUAL) 3 %; EOSINOPHILS # (MANUAL) 0.1 10^3/uL (0-0.7); LYMPHOCYTES # (MANUAL) 2.7 10^3/uL (1.5-3.5); LYMPHOCYTES % (MANUAL) 83 %; MONOCYTES # (MANUAL) 0.2 10^3/uL (0.0-1.0); NEUTROPHILS # (MANUAL) 0.1 10^3/uL (1.5-6.6)
[2017-11-26 15:48] LABS: DIFFERENTIAL COMMENT MANUAL DIFFERENTIAL; PLATELET ESTIMATE, MANUAL NORMAL (130-450,000) (NORMAL); PLATELET MORPHOLOGY NORMAL APPEARANCE (NORMAL); RBC MORPHOLOGY (MULTIPLE) 1+ POLYCHROMASIA (NORMAL)
[2017-11-26] MEDS ORDERED: FAMOTIDINE 20 MG TABLET PO STA (16:40)
[2017-11-26] MEDS ORDERED: MORPHINE 10 MG/ML VIAL IM STA (16:40)
[2017-11-26] MEDS ORDERED: SUCRALFATE 1 GM/10 ML UDC PO STA (16:40)
[2017-11-26] MEDS ORDERED: HYDROmorphone 2 MG/ML VIAL IM STA (17:21)
[2017-11-26 17:49] VITALS: BP 137/78
== END 2017-11-26 17:58 | disposition home or self-care (01) ==
LOC: ED 13:18
DX: R10.13 Epigastric pain (principal); J45.909 Unspecified asthma, uncomplicated; E03.9 Hypothyroidism, unspecified; Z87.11 Personal history of peptic ulcer disease; M79.7 Fibromyalgia
CPT/HCPCS: 36415; 71046; 80053; 83690; 83880; 84484; 85025; 93005; 96372; 99283; 99284; A9270; J1170; Q0162; 87338

== ENCOUNTER 2017-12-22 07:55 | Emergency (ER) | payer MEDICARE, OTHER ==
--- NOTE | 2017-12-22 08:07 | ED Physician Documentation ---
PD HPI HEENT - Stated complaint Stated Complaint: JAW PX/SWELLING/LUMP - History obtained from History obtained from: Patient - History of Present Illness Timing - onset: How many days ago (2-3) Timing - duration: Days (2-3) Timing - details: Gradual onset (she has noted some pain in left lower jaw and gum and has some warmth and swelling overnight into today. She had had dental abscess with facial cellulitis that did not improve to oral meds and needed hospitalization then oral surgery for removal of the tooth las March, and has history of neutropenia, so is concerned with early infection.), Still present Location: Tooth (left lower) Worsens: Swalllowing Associated symptoms: Fever (she says she had low grade temp to 100 last night.) Similar symptoms before: Diagnosis (dental infections in the past and had one last Sept that developed into abscess/cellulitis and needed hospitalization with IV abx.) Review of Systems Constitutional: reports: Myalgias (chronic due to FM) Nose: denies: Rhinorrhea / runny nose, Congestion Throat: reports: Dental pain / toothache. denies: Sore throat Cardiac: denies: Chest pain / pressure Respiratory: denies: Dyspnea GI: denies: Nausea, Vomiting, Diarrhea Skin: denies: Rash, Lesions PD PAST MEDICAL HISTORY - Past Medical History Cardiovascular: None (had cardiac cath several months ago (about 3 months) without occlusions found. 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, Other : None HEENT: None, Other Psych: Bipolar disorder, Panic attacks Musculoskeletal: Fibromyalgia, Fatigue Derm: None - Past Surgical History Past Surgical History: Yes General: Gastric surgery HEENT: Tonsil/Adenoidectomy, Other - Present Medications Home Medications: Ambulatory Orders Medication Instructions Recorded Confirmed Levothyroxine [Synthroid] 100 mcg PO DAILY 05/25/13 03/28/17 Propranolol HCl [Inderal Xl] 120 mg ORAL DAILY 11/25/14 03/27/17 Candesartan Cilexetil [Atacand] 32 mg PO DAILY 05/20/15 03/28/17 Albuterol Sulfate [Proair Hfa 1 puffs INH Q4HR PRN 07/16/15 03/28/17 Inhaler] Ondansetron [Zofran Odt] 8 mg PO Q8HR PRN 07/16/15 03/27/17 Zolmitriptan [Zomig] 5 mg INH BID PRN 07/16/15 03/27/17 Epinephrine [Epipen 2-Stephen] 0.3 mg IM DAILY PRN 01/19/16 03/28/17 Oxycodone HCl/Acetaminophen 1 each PO Q6H PRN #10 tablet 05/13/16 03/28/17 [Percocet 10-325 mg Tablet] Liothyronine [Cytomel] 10 mcg PO DAILY 03/27/17 03/28/17 oxyCODONE/ACET 5/325 [Percocet 5 2 tab PO Q6HR PRN #0 tablet 04/01/17 mg/325 mg] Famotidine [Pepcid] 20 mg PO BID #30 tablet 11/26/17 Levonorgestrel-Ethin Estradiol 1 tab PO DAILY 11/26/17 [Jolessa 0.15 mg-0.03 mg Tablet] Ondansetron HCl [Zofran] 4 mg PO Q6H PRN #20 tablet 11/26/17 Oxycodone HCl/Acetaminophen 1 each PO Q6H PRN #20 tablet 11/26/17 [Percocet 5-325 mg Tablet] Sucralfate 1 gm PO TID #20 tablet 11/26/17 Cephalexin [Keflex] 500 mg PO TID #21 capsule 12/22/17 Chlorhexidine Gluconate [Peridex] 5 ml MM BID #118 ml 12/22/17 Oxycodone HCl/Acetaminophen 1 each PO Q6H PRN #15 tablet 12/22/17 [Percocet 5-325 mg Tablet] Saccharomyces Boulardii [Florastor] 250 mg PO BID #14 capsule 12/22/17 metroNIDAZOLE [Flagyl] 250 mg PO TID #21 tablet 12/22/17 - Allergies Allergies/Adverse Reactions: Allergies Allergy/AdvReac Type Severity Reaction Status Date / Time clindamycin Allergy Severe Rash Verified 05/10/16 21:03 pantoprazole sodium * Allergy Severe Rash Verified 05/10/16 21:03 [From Protonix] Penicillins Allergy Severe Respiratory Verified 05/10/16 21:03 prochlorperazine edisylate * Allergy Severe panic Verified 05/10/16 21:03 [From Compazine] attack prochlorperazine maleate * Allergy Severe Edema Verified 05/10/16 21:03 [From Compazine] mushroom Allergy Unknown Rash Verified 05/10/16 21:03 codeine Allergy Emesis Verified 05/10/16 21:03 hydrocodone bitartrate * Allergy Itching Verified 05/10/16 21:03 [From Vicodin] morphine AdvReac Severe Headache Verified 05/10/16 21:03 promethazine AdvReac Severe Anxiety Verified 05/10/16 21:03 zolpidem tartrate * AdvReac Severe Hallucinati Verified 05/10/16 21:03 [From Ambien] ons Iodinated Contrast- Oral and AdvReac Rash Verified 03/27/17 12:40 IV Dye Bee stings Allergy Anaphylaxis Uncoded 05/10/16 21:04 - Social History Does the pt smoke?: No Smoking Status: Never smoker Does the pt drink ETOH?: No Does the pt have substance abuse?: No - Immunizations Immunizations are current?: Yes - POLST Patient has POLST: No PD ED PE NORMAL - Vitals Vital signs reviewed: Yes - General General: Alert and oriented X 3, No acute distress, Well developed/nourished - HEENT HEENT: Pharynx benign. No: Dentition benign (has prior extracted tooth left lower 1st molar?, and with fillings in teeth behind and in front. There is tenderness with mild swelling of gum below tooth in front of the extracted site , without fluctuance. No adenopathy nor submandibular fullness felt. ) - Neck Neck: Supple, no meningeal sign, No adenopathy - Cardiac Cardiac: RRR, No murmur - Respiratory Respiratory: Clear bilaterally - Derm Derm: Normal color, Warm and dry, No rash Results - Vitals Vitals: Vital Signs - 24 hr 12/22/17 12/22/17 08:06 08:57 Temperature 36.6 C Heart Rate 73 77 Respiratory 20 18 Rate Blood Pressure 198/116 H 155/95 H O2 Saturation 99 99 Oxygen O2 Source Room air PD MEDICAL DECISION MAKING - ED course Complexity details: reviewed old records, considered differential (I share the patient's concern about getting infections early for her, in lieu of the neutropenia. It is early now, so will give double abx for broad coverage ( suggested through [employer]) with Keflex (since PCN allergy) and Flagyl. Pain meds PRN. Recheck with dentist in 2-3 days as extraction, root canal is most definitive treatment if worsens. ), d/w patient - Sepsis Event Vital Signs: Vital Signs - 24 hr 12/22/17 12/22/17 08:06 08:57 Temperature 36.6 C Heart Rate 73 77 Respiratory 20 18 Rate Blood Pressure 198/116 H 155/95 H O2 Saturation 99 99 Oxygen O2 Source Room air Departure - Departure Disposition: 01 Home, Self Care Clinical Impression: Dentoalveolar cellulitis, Dental infection Condition: Stable Record reviewed to determine appropriate education?: Yes Instructions: ED Abscess Dental Follow-Up: Ruth Solomon ARNP [Primary Care Provider] - Prescriptions: Cephalexin [Keflex] 500 mg PO TID #21 capsule Chlorhexidine Gluconate [Peridex] 5 ml MM BID #118 ml metroNIDAZOLE [Flagyl] 250 mg PO TID #21 tablet Oxycodone HCl/Acetaminophen [Percocet 5-325 mg Tablet] 1 each PO Q6H PRN #15 tablet PRN Reason: Pain Saccharomyces Boulardii [Florastor] 250 mg PO BID #14 capsule Comments: Most dental infections can be treated adequately with oral medications. I know with your neutropenia you are concerned that it will develop into a larger infection or abscess-like last year. This is unlikely to occur but if you do have increasing swelling and pain in the area despite both oral antibiotics then please return for other medications. Rinse your mouth with oral antiseptic twice daily (chlorhexidine). Use a probiotic while taking the 2 antibiotics. Drink lots of fluids. Tylenol if needed for pain and add Percocet if needed for worse pain. Recheck with your dentist in 2-3 days, call for an appointment. Discharge Date/Time: 12/22/17 08:58
[2017-12-22] MEDS ORDERED: metroNIDAZOLE 250 MG TABLET PO STA (08:27)
[2017-12-22] MEDS ORDERED: cephALEXin 250 MG CAPSULE PO STA (08:28)
[2017-12-22 08:58] VITALS: BP 155/95
== END 2017-12-22 08:58 | disposition home or self-care (01) ==
LOC: ED 07:55
DX: K12.2 Cellulitis and abscess of mouth (principal); K04.7 Periapical abscess without sinus; E03.9 Hypothyroidism, unspecified; D70.9 Neutropenia, unspecified
CPT/HCPCS: 99283; A9270; 85025

== ENCOUNTER 2018-05-12 11:15 | Outpatient (CLI) | payer MEDICARE, OTHER ==
--- NOTE | 2018-05-13 09:08 | Mammography Report ---
Reason: MAMMOGRAM NOT HIGH RISK SCREENING Procedure Date: 05/12/2018 Accession Number: [id number] / [id number] Procedure: [facility] - Screening Mammo w/Dudley CPT Code: FULL RESULT: EXAM: Screening Mammo w/Dudley DATE: 05/12/2018 12:13 PM CLINICAL HISTORY: 47-year-old female with history of early menses. TECHNIQUE: Bilateral CC and MLO views were obtained. COMPARISON: 04/24/2013. FINDINGS: The breasts demonstrate scattered fibroglandular densities bilaterally. No suspicious masses, clustered microcalcifications, or regions of architectural distortion are identified. IMPRESSION: Negative examination RECOMMENDATION: Routine annual screening unless otherwise clinically indicated. BIRADS CATEGORY 1: Negative STANDARD QUALIFYING STATEMENTS: 1. This examination was not reviewed with the aid of Computer-Aided Detection (CAD). 2. A negative or benign imaging report should not delay biopsy if clinically suspicious findings are present. Consider surgical consultation if warrented. More than 5% of cancers are not identified by imaging. 3. Dense breasts may obscure an underlying neoplasm. 4. This examination was reviewed with the aid of 3D breast imaging (tomosynthesis).
== END 2018-05-12 11:16 | disposition home or self-care (01) ==
LOC: DI 11:15
PROVIDERS: ATTEND Nurse Practitioner Gerontology
DX: Z12.31 Encounter for screening mammogram for malignant neoplasm of breast (principal)
CPT/HCPCS: 77063; 77067

== ENCOUNTER 2019-06-05 09:31 | Outpatient (CLI) | payer MEDICARE, OTHER ==
[2019-06-05 12:08] LABS: BASOPHILS % (AUTO) 1.8 %; HGB - HEMOGLOBIN 11.8 g/dL (12.0-16.0); MEAN CORPUSCULAR HEMOGLOBIN 26.8 pg (27.0-31.0); MEAN CORPUSCULAR HGB CONC 30.8 g/dL (32.0-36.0); MEAN CORPUSCULAR VOLUME 86.8 fL (81.0-99.0); MEAN PLATELET VOLUME 12.1 fL (7.9-10.8); MONOCYTES % (AUTO) 20.3 %; NEUTROPHILS % (AUTO) 19.9 %; PLT - PLATELET COUNT 400 10^3/uL (130-450); RED BLOOD COUNT 4.41 10^6/uL (4.20-5.40); RED CELL DISTRIBUTION WIDTH 15.6 % (12.0-15.0); WHITE BLOOD COUNT 2.8 x10^3/uL (4.8-10.8)
[2019-06-05 12:21] LABS: ALBUMIN/GLOBULIN RATIO 1.1 (1.0-2.2); ALKALINE PHOSPHATASE 55 IU/L (42-121); ALT ALANINE AMINOTRANSFERASE 25 IU/L (10-60); AST ASPARTATE AMINOTRANSFERASE 22 IU/L (10-42); BILIRUBIN,TOTAL 0.6 mg/dL (0.2-1.0); BUN - BLOOD UREA NITROGEN 20 mg/dL (6-20); CALCIUM 9.6 mg/dL (8.5-10.3); CARBON DIOXIDE - CO2 22 mmol/L (21-32); CHLORIDE 103 mmol/L (101-111); CHOL/HDL RATIO 4.2 (<4.4); CHOLESTEROL 181 mg/dL; CREATININE 0.9 mg/dL (0.4-1.0); GFR - MDRD 67 (>89); GLUCOSE 93 mg/dL (70-100); HDL CHOLESTEROL 43 mg/dL; LDL CHOLESTEROL,CALCULATED 124 mg/dL; LDL/HDL RATIO 2.9 (<4.4); SODIUM 135 mmol/L (135-145); TOTAL PROTEIN 7.7 g/dL (6.7-8.2); VLDL CHOLESTEROL 14 mg/dL
[2019-06-05 12:41] LABS: ABNORMAL LYMPHS % (MANUAL) 0 %
[2019-06-05 12:51] LABS: BAND NEUTROPHILS % (MANUAL) 6 %; BASOPHILS % (MANUAL) 1 %; DIFFERENTIAL COMMENT MANUAL DIFFERENTIAL; EOSINOPHILS # (MANUAL) 0.1 10^3/uL (0-0.7); LYMPHOCYTES # (MANUAL) 1.7 10^3/uL (1.5-3.5); LYMPHOCYTES % (MANUAL) 45 %; MONOCYTES # (MANUAL) 0.5 10^3/uL (0.0-1.0); PLATELET MORPHOLOGY RARE GIANT PLATELETS (NORMAL)
== END 2019-06-05 23:59 | disposition home or self-care (01) ==
LOC: LAB.N 09:31
PROVIDERS: ATTEND Nurse Practitioner Gerontology
DX: E53.8 Deficiency of other specified B group vitamins (principal); E55.9 Vitamin D deficiency, unspecified; E78.00 Pure hypercholesterolemia, unspecified; E67.8 Other specified hyperalimentation; D64.9 Anemia, unspecified; I10 Essential (primary) hypertension; E03.9 Hypothyroidism, unspecified; D72.819 Decreased white blood cell count, unspecified
CPT/HCPCS: 36415; 80053; 80061; 82306; 82607; 82728; 82746; 83721; 84443; 85025

== ENCOUNTER 2019-09-11 09:50 | Outpatient (CLI) | payer MEDICARE, OTHER | END 2019-09-11 23:59 | disposition home or self-care (01) | LOC: LAB.N 09:50 | PROVIDERS: ATTEND Nurse Practitioner Gerontology | DX: E53.8 Deficiency of other specified B group vitamins (principal) | CPT/HCPCS: 36415; 82607 ==

== ENCOUNTER 2019-12-04 13:28 | Emergency (ER) | payer MEDICARE, OTHER ==
[2019-12-04] MEDS ORDERED: HYDROmorphone 1 MG/ML CARPUJECT IVP STA ×3 (14:26→16:15)
[2019-12-04] MEDS ORDERED: metroNIDAZOLE 500 MG/100 ML 500 MG/100 ML BAG IV ONE (14:27)
[2019-12-04] MEDS ORDERED: CIPROFLOXACIN 400 MG/200 ML 400 MG/200 ML BAG IV STA (14:27)
--- NOTE | 2019-12-04 14:28 | ED Physician Documentation ---
PD HPI HEENT - Stated complaint Stated Complaint: LT SIDED FACIAL PX - Chief complaint Chief Complaint: Heent - History obtained from History obtained from: Patient (This is a 49-year-old woman with idiopathic neutropenia. She has a history of sinus infections and dental issues. Multiple antibiotic allergies. Over the last 2 to 3 days she has had increasing now severe pain of the left cheek with a sensation of swelling there but no fevers or chills. 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, Other : None HEENT: None, Other Psych: Bipolar disorder, Panic attacks Musculoskeletal: Fibromyalgia, Fatigue Derm: None - Past Surgical History Past Surgical History: Yes General: Gastric surgery HEENT: Tonsil/Adenoidectomy, Other - Present Medications Home Medications: Ambulatory Orders Medication Instructions Recorded Confirmed Levothyroxine [Synthroid] 100 mcg PO DAILY 05/25/13 12/04/19 Propranolol HCl [Inderal Xl] 120 mg ORAL DAILY 11/25/14 12/04/19 Candesartan Cilexetil [Atacand] 32 mg PO DAILY 05/20/15 12/04/19 Liothyronine [Cytomel] 10 mcg PO DAILY 03/27/17 12/04/19 Levonorgestrel-Ethin Estradiol 1 tab PO DAILY 11/26/17 12/04/19 [Jolessa 0.15 mg-0.03 mg Tablet] Ciprofloxacin HCl [Cipro] 500 mg PO BID #20 tablet 12/04/19 Oxycodone HCl/Acetaminophen 1 - 2 each PO Q6H PRN #14 tablet 12/04/19 [Percocet 5-325 mg Tablet] metroNIDAZOLE [Flagyl] 500 mg PO TID #30 tablet 12/04/19 - Allergies Allergies/Adverse Reactions: Allergies Allergy/AdvReac Type Severity Reaction Status Date / Time clindamycin Allergy Severe Rash Verified 12/04/19 14:17 pantoprazole sodium * Allergy Severe Rash Verified 12/04/19 14:17 [From Protonix] Penicillins Allergy Severe Respiratory Verified 12/04/19 14:17 prochlorperazine edisylate * Allergy Severe panic Verified 12/04/19 14:17 [From Compazine] attack prochlorperazine maleate * Allergy Severe Edema Verified 12/04/19 14:17 [From Compazine] mushroom Allergy Unknown Rash Verified 12/04/19 14:17 codeine Allergy Emesis Verified 12/04/19 14:17 hydrocodone bitartrate * Allergy Itching Verified 12/04/19 14:17 [From Vicodin] morphine AdvReac Severe Headache Verified 12/04/19 14:17 promethazine AdvReac Severe Anxiety Verified 12/04/19 14:17 zolpidem tartrate * AdvReac Severe Hallucinati Verified 12/04/19 14:17 [From Ambien] ons Iodinated Contrast Media AdvReac Rash Verified 12/04/19 14:17 Bee stings Allergy Anaphylaxis Uncoded 12/04/19 14:17 - Social History Does the pt smoke?: No Smoking Status: Never smoker Does the pt drink ETOH?: No Does the pt have substance abuse?: No - Immunizations Immunizations are current?: Yes - POLST Patient has POLST: No PD ED PE NORMAL - Vitals Vital signs reviewed: Yes - General General: Alert and oriented X 3, No acute distress - HEENT HEENT: Other (The left TM is retracted, she does not have any dental tenderness, but the gingiva laterally on the left maxilla are quite inflamed and swollen and there is a palpable lump or abscess superior to that under the cheek.) - Neck Neck: Supple, no meningeal sign, No bony TTP - Cardiac Cardiac: RRR, No murmur - Respiratory Respiratory: No respiratory distress, Clear bilaterally - Abdomen Abdomen: Non tender - Back Back: No CVA TTP, No spinal TTP - Derm Derm: Normal color, Warm and dry - Extremities Extremities: No edema, No calf tenderness / cord - Neuro Neuro: Alert and oriented X 3, Normal speech Results - Vitals Vitals: Vital Signs - 24 hr 12/04/19 13:34 Temperature 36.1 C L Heart Rate 69 Respiratory 16 Rate Blood Pressure 132/80 H O2 Saturation 99 Oxygen O2 Source Room air - Labs Labs: Laboratory Tests 05/22/20 05/22/20 05/22/20 14:34 14:34 14:34 WBC 3.0 L RBC 4.57 Hgb 12.9 Hct 40.2 MCV 88.0 MCH 28.2 MCHC 32.1 RDW 14.9 Plt Count 404 MPV 10.3 Neut # (Auto) 0.3 L* Lymph # (Auto) 1.6 [place] # (Auto) 0.9 Eos # (Auto) 0.2 Baso # (Auto) 0.1 Absolute Nucleated RBC 0.00 Band Neuts % (Manual) Not Reportable Abnorm Lymph % (Manual) Not Reportable Nucleated RBC % 0.0 Neutrophils # (Manual) Not Reportable Lymphocytes # (Manual) Not Reportable Monocytes # (Manual) Not Reportable Eosinophils # (Manual) Not Reportable Basophils # (Manual) Not Reportable Differential Comment MANUAL=AUTO DIFF Platelet Estimate NORMAL (130-450,000) Platelet Morphology NORMAL APPEARANCE RBC Morph Micro Appear NORMAL APPEARANCE Sodium 136 Potassium 4.0 Chloride 105 Carbon Dioxide 21 Anion Gap 10.0 BUN 21 H Creatinine 0.8 Estimated GFR (MDRD) 77 L Glucose 96 Lactic Acid 0.6 Calcium 9.4 Total Bilirubin 0.6 AST 17 ALT 21 Alkaline Phosphatase 76 Total Protein 7.9 Albumin 4.1 Globulin 3.8 Albumin/Globulin Ratio 1.1 Lipase 26 PD MEDICAL DECISION MAKING - ED course ED course: 49-year-old woman with idiopathic neutropenia presents with left facial pain and swelling. Possible dental source from the gums on exam but no abscess on CT, just sinus disease. Antibiotic choice is somewhat difficult given multiple allergies and she is placed on Cipro and Flagyl noting allergies to cephalosporins, penicillins, clindamycin. Departure - Departure Disposition: 01 Home, Self Care Clinical Impression: Facial cellulitis Neutropenia Qualifiers: Neutropenia type: unspecified Qualified Code(s): D70.9 - Neutropenia, unspecified Condition: Good Record reviewed to determine appropriate education?: Yes Instructions: ED Cellulitis Facial Prescriptions: Ciprofloxacin HCl [Cipro] 500 mg PO BID #20 tablet metroNIDAZOLE [Flagyl] 500 mg PO TID #30 tablet Oxycodone HCl/Acetaminophen [Percocet 5-325 mg Tablet] 1 - 2 each PO Q6H PRN #14 tablet PRN Reason: pain Comments: CT imaging today demonstrates no abscess, you do have sinus disease and you do have the gum infection. The antibiotic should be helpful. Return if worse or if new symptoms develop, or if you run high fevers. Follow-up with your primary care physician and your dentist, both next available appointments.
[2019-12-04 14:42] LABS: BASOPHILS # (AUTO) 0.1 10^3/uL (0.0-0.1); BASOPHILS % (AUTO) 1.7 %; EOSINOPHILS # (AUTO) 0.2 10^3/uL (0.0-0.7); HGB - HEMOGLOBIN 12.9 g/dL (12.0-16.0); LYMPHOCYTES # (AUTO) 1.6 10^3/uL (1.5-3.5); LYMPHOCYTES % (AUTO) 53.2 %; MEAN CORPUSCULAR HEMOGLOBIN 28.2 pg (27.0-31.0); MEAN CORPUSCULAR HGB CONC 32.1 g/dL (32.0-36.0); MEAN PLATELET VOLUME 10.3 fL (7.9-10.8); MONOCYTES # (AUTO) 0.9 10^3/uL (0.0-1.0); MONOCYTES % (AUTO) 29.1 %; PLT - PLATELET COUNT 404 10^3/uL (130-450); RED BLOOD COUNT 4.57 10^6/uL (4.20-5.40); RED CELL DISTRIBUTION WIDTH 14.9 % (12.0-15.0)
[2019-12-04 14:47] LABS: NEUTROPHILS # (AUTO) 0.3 10^3/uL (1.5-6.6)
[2019-12-04 14:56] LABS: ALBUMIN 4.1 g/dL (3.2-5.5); ALBUMIN/GLOBULIN RATIO 1.1 (1.0-2.2); BILIRUBIN,TOTAL 0.6 mg/dL (0.2-1.0); CALCIUM 9.4 mg/dL (8.5-10.3); CREATININE 0.8 mg/dL (0.4-1.0); TOTAL PROTEIN 7.9 g/dL (6.7-8.2)
[2019-12-04] MEDS ORDERED: FILGRASTIM-SNDZ 300 MCG/0.5 ML SYRINGE SUBQ ONE (14:56)
[2019-12-04 14:59] LABS: DIFFERENTIAL COMMENT MANUAL=AUTO DIFF; PLATELET ESTIMATE, MANUAL NORMAL (130-450,000) (NORMAL); PLATELET MORPHOLOGY NORMAL APPEARANCE (NORMAL); RBC MORPHOLOGY (MULTIPLE) NORMAL APPEARANCE (NORMAL)
--- NOTE | 2019-12-04 15:59 | CT Report ---
Reason: left facial infection, ? abscess Procedure Date: 12/04/2019 Accession Number: [id number] / [id number] Procedure: CT - MAXILLOFACIAL WO CPT Code: Final Report FULL RESULT: EXAM: CT MAXILLOFACIAL WITHOUT CONTRAST EXAM DATE: 12/04/2019 03:16 PM. CLINICAL HISTORY: Left facial infection, ? abscess. COMPARISONS: HEAD W/O 02/22/2016 4:48 PM. TECHNIQUE: Thin-section axial images were acquired of the face without contrast. Post-processing: Coronal and sagittal reformats. Other: None. In accordance with CT protocol optimization, one or more of the following dose reduction techniques were utilized for this exam: automated exposure control, adjustment of mA and/or KV based on patient size, or use of iterative reconstructive technique. FINDINGS: Soft Tissue: No fluid collection or abscess. There is metal streak artifact related to dental amalgam. Orbits: Symmetric and unremarkable. Bones: Negative for acute fracture. There is chronic bony thickening of the wall of the maxillary sinuses. Temporomandibular Joints: The temporomandibular joints are symmetric and normally located. Sinuses: There is diffuse mucosal thickening of the maxillary, sphenoid and ethmoid sinuses. The frontal sinuses appear clear. Other: None. IMPRESSION: Chronic paranasal sinus inflammatory disease. No fracture or abscess. RADIA
[2019-12-04 16:26] VITALS: BP 105/65
== END 2019-12-04 16:25 | disposition home or self-care (01) ==
LOC: ED 13:28
DX: L03.211 Cellulitis of face (principal); K05.10 Chronic gingivitis, plaque induced; D70.9 Neutropenia, unspecified; J32.9 Chronic sinusitis, unspecified; Z88.1 Allergy status to other antibiotic agents; Z88.0 Allergy status to penicillin
CPT/HCPCS: 36415; 70486; 80053; 83605; 83690; 85025; 87040; 96365; 96368; 96375; 96376; 99284; J1170

== ENCOUNTER 2020-05-04 07:23 | Outpatient (CLI) | payer MEDICARE, OTHER ==
[2020-05-04 11:39] LABS: BASOPHILS % (AUTO) 2.8 %; EOSINOPHILS % (AUTO) 13.6 %; HGB - HEMOGLOBIN 12.3 g/dL (12.0-16.0); LYMPHOCYTES % (AUTO) 51.2 %; MEAN CORPUSCULAR HEMOGLOBIN 27.5 pg (27.0-31.0); MEAN CORPUSCULAR HGB CONC 31.2 g/dL (32.0-36.0); MEAN CORPUSCULAR VOLUME 87.9 fL (81.0-99.0); MONOCYTES % (AUTO) 24.8 %; NEUTROPHILS % (AUTO) 7.6 %; PLT - PLATELET COUNT 424 10^3/uL (130-450); RED BLOOD COUNT 4.48 10^6/uL (4.20-5.40); RED CELL DISTRIBUTION WIDTH 15.4 % (12.0-15.0); WHITE BLOOD COUNT 2.5 x10^3/uL (4.8-10.8)
[2020-05-04 12:12] LABS: ABNORMAL LYMPHS % (MANUAL) 0 %; BAND NEUTROPHILS % (MANUAL) 0 %
[2020-05-04 12:25] LABS: BASOPHILS % (MANUAL) 1 %; DIFFERENTIAL COMMENT MANUAL DIFFERENTIAL; EOSINOPHILS # (MANUAL) 0.2 10^3/uL (0-0.7); LYMPHOCYTES # (MANUAL) 1.2 10^3/uL (1.5-3.5); LYMPHOCYTES % (MANUAL) 47 %; MONOCYTES # (MANUAL) 0.7 10^3/uL (0.0-1.0); PLATELET ESTIMATE, MANUAL NORMAL (130-450,000) (NORMAL); PLATELET MORPHOLOGY NORMAL APPEARANCE (NORMAL); RBC MORPHOLOGY (MULTIPLE) 1+ ANISOCYTOSIS (NORMAL)
[2020-05-04 12:26] LABS: THYROID STIMULATING HORMONE 1.4 uIU/mL (0.34-5.60)
[2020-05-04 12:28] LABS: FREE T4 (FREE THYROXINE) 0.94 ng/dL (0.58-1.64)
[2020-05-04 12:29] LABS: FREE T3 3.63 pg/mL (2.5-3.9)
[2020-05-04 12:35] LABS: FERRITIN 5.6 ng/mL (11.0-306.8)
[2020-05-04 12:37] LABS: FOLATE 13.78 ng/mL (5.90 - >24.8)
[2020-05-04 12:40] LABS: % IRON SATURATION 13 % (20-50); ALBUMIN 3.7 g/dL (3.2-5.5); ALBUMIN/GLOBULIN RATIO 1.1 (1.0-2.2); ALKALINE PHOSPHATASE 70 IU/L (42-121); ALT ALANINE AMINOTRANSFERASE 14 IU/L (10-60); AST ASPARTATE AMINOTRANSFERASE 14 IU/L (10-42); BILIRUBIN,TOTAL 0.6 mg/dL (0.2-1.0); BUN - BLOOD UREA NITROGEN 19 mg/dL (6-20); CALCIUM 9.6 mg/dL (8.5-10.3); CARBON DIOXIDE - CO2 23 mmol/L (21-32); CHLORIDE 101 mmol/L (101-111); CHOL/HDL RATIO 4.1 (<4.4); CHOLESTEROL 214 mg/dL; CREATININE 0.7 mg/dL (0.4-1.0); GLUCOSE 107 mg/dL (70-100); HDL CHOLESTEROL 52 mg/dL; IRON 66 ug/dL (28-170); LDL CHOLESTEROL,CALCULATED 146 mg/dL; LDL/HDL RATIO 2.8 (<4.4); SODIUM 137 mmol/L (135-145); TOTAL IRON BINDING CAPACITY 512 ug/dL (250-450); TOTAL PROTEIN 7.2 g/dL (6.7-8.2); TRANSFERRIN 366 mg/dL (192-382); VLDL CHOLESTEROL 16 mg/dL
== END 2020-05-04 23:59 | disposition home or self-care (01) ==
LOC: LAB.WCP 07:23
PROVIDERS: ATTEND Family Medicine
DX: I10 Essential (primary) hypertension (principal); E03.9 Hypothyroidism, unspecified; E55.9 Vitamin D deficiency, unspecified; D50.9 Iron deficiency anemia, unspecified; E78.00 Pure hypercholesterolemia, unspecified; E53.8 Deficiency of other specified B group vitamins; M79.7 Fibromyalgia; R53.82 Chronic fatigue, unspecified; D70.8 Other neutropenia
CPT/HCPCS: 36415; 80053; 80061; 82306; 82607; 82728; 82746; 83540; 83721; 84439; 84443; 84466; 84481; 85025

== ENCOUNTER 2020-08-30 09:31 | Emergency (ER) | payer MEDICARE, OTHER ==
[2020-08-30] MEDS ORDERED: ACETAMINOPHEN 325 MG TABLET PO STA (10:21)
[2020-08-30 10:35] LABS: BASOPHILS # (AUTO) 0.1 10^3/uL (0.0-0.1); BASOPHILS % (AUTO) 2.7 %; EOSINOPHILS # (AUTO) 0.5 10^3/uL (0.0-0.7); HGB - HEMOGLOBIN 12.3 g/dL (12.0-16.0); LYMPHOCYTES # (AUTO) 1.3 10^3/uL (1.5-3.5); LYMPHOCYTES % (AUTO) 44.6 %; MEAN CORPUSCULAR HEMOGLOBIN 26.7 pg (27.0-31.0); MEAN CORPUSCULAR HGB CONC 31.1 g/dL (32.0-36.0); MEAN CORPUSCULAR VOLUME 85.7 fL (81.0-99.0); MEAN PLATELET VOLUME 11.1 fL (7.9-10.8); MONOCYTES # (AUTO) 0.7 10^3/uL (0.0-1.0); MONOCYTES % (AUTO) 23.1 %; NEUTROPHILS % (AUTO) 12.6 %; PLT - PLATELET COUNT 317 10^3/uL (130-450); RED BLOOD COUNT 4.61 10^6/uL (4.20-5.40); RED CELL DISTRIBUTION WIDTH 15.4 % (12.0-15.0); WHITE BLOOD COUNT 2.9 x10^3/uL (4.8-10.8)
[2020-08-30 10:36] LABS: VBG PCO2 28.4 mmHg (41-51); VBG PH 7.415 (7.31-7.41)
[2020-08-30 10:37] LABS: VBG BASE EXCESS -5.4 mmol/L (-2 - +2); VBG PO2 68.1 mmHg (25-47); VBG TOTAL CO2 18.7 mmol/L (24-29)
[2020-08-30 10:38] LABS: NEUTROPHILS # (AUTO) 0.4 10^3/uL (1.5-6.6)
--- NOTE | 2020-08-30 10:43 | XRAY Report ---
PROCEDURE: Chest 2 View X-Ray INDICATIONS: Dyspnea on exertion, cough TECHNIQUE: 2 view(s) of the chest. COMPARISON: None. FINDINGS: Surgical changes and devices: None. Lungs and pleura: No pleural effusions or pneumothorax. Lungs are clear. Mediastinum: Mediastinal contours are normal. Heart size is normal. Bones and chest wall: No suspicious bony abnormalities. Soft tissues appear unremarkable. IMPRESSION: No acute cardiopulmonary process demonstrated radiographically. Reviewed by: Bethel Warner MD on 08/30/2020 10:41 AM [facility] Approved by: Bethel Warner MD on 08/30/2020 10:41 AM [facility] Station ID: [id number]
[2020-08-30 10:56] LABS: BUN - BLOOD UREA NITROGEN 13 mg/dL (6-20); CALCIUM 9.4 mg/dL (8.5-10.3); CARBON DIOXIDE - CO2 17 mmol/L (21-32); CHLORIDE 111 mmol/L (101-111); CREATININE 0.7 mg/dL (0.4-1.0); GLUCOSE 110 mg/dL (70-100)
[2020-08-30 11:35] LABS: C. PNEUMONIAE- RESP PCR PANEL NOT DETECTED
[2020-08-30 11:57] VITALS: BP 108/71
[2020-08-30] MEDS ORDERED: CHERRY SYRUP 10 ML UDC PO ONE (12:28)
[2020-08-30] MEDS ORDERED: DEXAMETHASONE 10 MG/ML VIAL PO STA (12:28)
--- NOTE | 2020-08-30 12:30 | ED Physician Documentation ---
History of Present Illness - Stated complaint Stated Complaint: COUGHING/HEADACHE/EAR PX - Chief complaint Chief Complaint: General - History obtained from History obtained from: Patient - Additonal information Additional information: 49-year-old woman with past medical history of chronic idiopathic neutropenia, chronic sinus infections, hypothyroidism, migraines, persistence with URI symptoms intermittent over the past 2 weeks status post Augmentin over 2 weeks ago. Patient states for the past 5 days she has had nonproductive cough, headache, ear fullness, chills, dyspnea on exertion and chest tightness that has progressively worsened. Past surgical history of 4 sinus surgeries with recurrent sinusitis in the past. Review of Systems Ten Systems: 10 systems reviewed and negative Constitutional: reports: Chills. 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, Other : Kidney stones HEENT: Other Psych: Bipolar disorder, Panic attacks Musculoskeletal: Fibromyalgia, Fatigue Derm: None - Past Surgical History Past Surgical History: Yes General: Cholecystectomy, Gastric surgery HEENT: Tonsil/Adenoidectomy, Other - Present Medications Home Medications: Ambulatory Orders Medication Instructions Recorded Confirmed Levothyroxine [Synthroid] 100 mcg PO DAILY 05/25/13 08/30/20 Propranolol HCl [Inderal Xl] 120 mg ORAL DAILY 11/25/14 08/30/20 Candesartan Cilexetil [Atacand] 32 mg PO DAILY 05/20/15 08/30/20 Liothyronine [Cytomel] 10 mcg PO DAILY 03/27/17 08/30/20 Levonorgestrel-Ethin Estradiol 1 tab PO DAILY 11/26/17 08/30/20 [Jolessa 0.15 mg-0.03 mg Tablet] Azithromycin [Zithromax Tri-Stephen] 500 mg PO QDAC 5 Days #6 tab 08/30/20 ZOLMitriptan [Zolmitriptan] 5 mg NS DAILY PRN 08/30/20 08/30/20 - Allergies Allergies/Adverse Reactions: Allergies Allergy/AdvReac Type Severity Reaction Status Date / Time clindamycin Allergy Severe Rash Verified 08/30/20 09:35 pantoprazole sodium * Allergy Severe Rash Verified 08/30/20 09:35 [From Protonix] Penicillins Allergy Severe Respiratory Verified 08/30/20 09:35 prochlorperazine edisylate * Allergy Severe panic Verified 08/30/20 09:35 [From Compazine] attack prochlorperazine maleate * Allergy Severe Edema Verified 08/30/20 09:35 [From Compazine] mushroom Allergy Unknown Rash Verified 08/30/20 09:35 codeine Allergy Emesis Verified 08/30/20 09:35 hydrocodone bitartrate * Allergy Itching Verified 08/30/20 09:35 [From Vicodin] morphine AdvReac Severe Headache Verified 08/30/20 09:35 promethazine AdvReac Severe Anxiety Verified 08/30/20 09:35 zolpidem tartrate * AdvReac Severe Hallucinati Verified 08/30/20 09:35 [From Ambien] ons Iodinated Contrast Media AdvReac Rash Verified 08/30/20 09:35 Bee stings Allergy Anaphylaxis Uncoded 12/04/19 14:17 - Social History Does the pt smoke?: No Smoking Status: Never smoker Does the pt drink ETOH?: No Does the pt have substance abuse?: No - Immunizations Immunizations are current?: Yes - POLST Patient has POLST: No PD ED PE NORMAL - Vitals Vital signs reviewed: Yes - General General: Alert and oriented X 3, No acute distress, Well developed/nourished - HEENT HEENT: Atraumatic, PERRL - Neck Neck: Supple, no meningeal sign - Cardiac Cardiac: RRR - Respiratory Respiratory: No respiratory distress, Clear bilaterally, Other (nonproductive cough) - Abdomen Abdomen: Non tender, Non distended - Back Back: No spinal TTP - Derm Derm: Normal color - Extremities Extremities: No deformity - Neuro Neuro: Alert and oriented X 3 - Psych Psych: Normal mood, Normal affect Results - Vitals Vitals: Vital Signs - 24 hr 08/30/20 08/30/20 08/30/20 09:35 09:57 11:56 Temperature 37.2 C Heart Rate 75 84 65 Respiratory 22 22 18 Rate Blood Pressure 139/87 H 127/102 H 108/71 O2 Saturation 98 100 98 Oxygen O2 Source Room air - Labs Labs: Laboratory Tests 08/30/20 08/30/20 08/30/20 10:30 10:30 10:30 WBC RBC Hgb Hct MCV MCH MCHC RDW Plt Count MPV Neut # (Auto) Lymph # (Auto) [place] # (Auto) Eos # (Auto) Baso # (Auto) Absolute Nucleated RBC Nucleated RBC % VBG pH 7.415 H VBG pCO2 28.4 L VBG pO2 68.1 H VBG HCO3 17.8 L VBG Total CO2 18.7 L VBG O2 Saturation 94.6 H VBG Base Excess -5.4 L Sodium 137 Potassium 4.2 Chloride 111 Carbon Dioxide 17 L Anion Gap 9.0 BUN 13 Creatinine 0.7 Estimated GFR (MDRD) 89 Glucose 110 H Lactic Acid 0.8 Calcium 9.4 Ionized Calcium NO Nasal Adenovirus (PCR) Nasal B. parapertussis DNA (PCR) Nasal Coronavir 229E PCR Nasal Coronavir HKU1 PCR Nasal Coronavir NL63 PCR Nasal Coronavir OC43 PCR Nasal Enterovir/Rhinovir PCR Nasal Influenza B PCR Nasal Influenza A PCR Nasal Parainfluen 1 PCR Nasal Parainfluen 2 PCR Nasal Parainfluen 3 PCR Nasal Parainfluen 4 PCR Nasal RSV (PCR) Nasal B.pertussis DNA PCR Nasal C.pneumoniae (PCR) Tarun Human Metapneumo PCR Nasal M.pneumoniae (PCR) Nasal SARS-CoV-2 (PCR) 08/30/20 08/30/20 10:33 10:34 WBC 2.9 L RBC 4.61 Hgb 12.3 Hct 39.5 MCV 85.7 MCH 26.7 L MCHC 31.1 L RDW 15.4 H Plt Count 317 MPV 11.1 H Neut # (Auto) 0.4 L* Lymph # (Auto) 1.3 L [place] # (Auto) 0.7 Eos # (Auto) 0.5 Baso # (Auto) 0.1 Absolute Nucleated RBC 0.00 Nucleated RBC % 0.0 VBG pH VBG pCO2 VBG pO2 VBG HCO3 VBG Total CO2 VBG O2 Saturation VBG Base Excess Sodium Potassium Chloride Carbon Dioxide Anion Gap BUN Creatinine Estimated GFR (MDRD) Glucose Lactic Acid Calcium Ionized Calcium Nasal Adenovirus (PCR) NOT DETECTED Nasal B. parapertussis DNA (PCR) NOT DETECTED Nasal Coronavir 229E PCR NOT DETECTED Nasal Coronavir HKU1 PCR NOT DETECTED Nasal Coronavir NL63 PCR NOT DETECTED Nasal Coronavir OC43 PCR NOT DETECTED Nasal Enterovir/Rhinovir PCR NOT DETECTED Nasal Influenza B PCR NOT DETECTED Nasal Influenza A PCR NOT DETECTED Nasal Parainfluen 1 PCR NOT DETECTED Nasal Parainfluen 2 PCR NOT DETECTED Nasal Parainfluen 3 PCR NOT DETECTED Nasal Parainfluen 4 PCR NOT DETECTED Nasal RSV (PCR) NOT DETECTED Nasal B.pertussis DNA PCR NOT DETECTED Nasal C.pneumoniae (PCR) NOT DETECTED Tarun Human Metapneumo PCR NOT DETECTED Nasal M.pneumoniae (PCR) NOT DETECTED Nasal SARS-CoV-2 (PCR) NOT DETECTED PD MEDICAL DECISION MAKING - ED course ED course: 49yF with pmh neutropenia, chronic uri's p/w uri sx X 2 weeks, without evidence of pneumonia on cxr. likely acute bronchitis given clinical picture. extensive education about symptom care given. strict return precautions. f/u varnisher apprentice and pmd. Departure - Departure Disposition: 01 Home, Self Care Clinical Impression: Chronic leukopenia, Acute bronchitis Condition: Stable Instructions: ED Upper Resp Infec Abx Tx, ED Bronchitis Asthmatic Prescriptions: Azithromycin [Zithromax Tri-Stephen] 500 mg PO QDAC 5 Days #6 tab Comments: You were seen in the emergency department for upper respiratory infection that appears to have progressed to a mild case of bronchitis. It is likely viral but I am prescribing you a Z-Stephen in case there is a bacterial secondary infection. You were given Decadron in the emergency department which will have its peak effect within 12 hours and will cover you for 72 hours. It should be helpful in reducing inflammation. Practice the symptomatic care management techniques that we discussed. Return to the emergency department for any new or worsening symptoms or other concerns. Follow-up with your primary doctor and with your varnisher apprentice. Consider following up with a director of psychology as well. Ron Leigh [employer]raft Mill Operator [address] [facility] Open Closes 5 PM Discharge Date/Time: 08/30/20 12:47
== END 2020-08-30 12:47 | disposition home or self-care (01) ==
LOC: ED 09:31
DX: J20.9 Acute bronchitis, unspecified (principal); Z20.822 Contact with and (suspected) exposure to COVID-19; D70.9 Neutropenia, unspecified; E03.9 Hypothyroidism, unspecified
CPT/HCPCS: 71046; 80048; 82803; 83605; 85025; 87631; 99284; A9270; 0202U

== ENCOUNTER 2021-01-30 08:00 | Outpatient (CLI) | payer MEDICARE, OTHER ==
[2021-01-30 12:44] LABS: ABSOLUTE RETICS # AUTO 0.083 10^6/uL (0.020-0.110); RED BLOOD COUNT 4.41 10^6/uL (4.20-5.40); RETICULOCYTE COUNT % (AUTO) 1.87 % (0.5-2.3)
[2021-01-30 13:30] LABS: % IRON SATURATION 12 % (20-50); IRON 57 ug/dL (28-170); TOTAL IRON BINDING CAPACITY 480 ug/dL (250-450); TRANSFERRIN 343 mg/dL (192-382)
== END 2021-01-30 23:59 | disposition home or self-care (01) ==
LOC: LAB.WCP 08:00
PROVIDERS: ATTEND Family Medicine
DX: D50.9 Iron deficiency anemia, unspecified (principal); Z98.84 Bariatric surgery status
CPT/HCPCS: 36415; 82728; 83540; 84466; 85045

== ENCOUNTER 2021-04-26 08:38 | Outpatient (CLI) | payer MEDICARE, OTHER | END 2021-04-26 23:59 | LOC: LAB.N 08:38 | PROVIDERS: ATTEND Physician Assistant Medical | DX: R50.9 Fever, unspecified (principal); Z20.822 Contact with and (suspected) exposure to COVID-19 ==

== ENCOUNTER 2021-04-26 10:12 | Emergency (ER) | payer MEDICARE, OTHER ==
--- NOTE | 2021-04-26 10:43 | ED Physician Documentation ---
PD HPI UPPER EXT INJURY - Stated complaint Stated Complaint: DIZZINESS/FEVER - Chief complaint Chief Complaint: General - History obtained from History obtained from: Patient - History of Present Illness Location: Other (She has had 2 weeks of congestion cough and some trouble breathing. It is worse in the last several days and today and last night having fever as well.) Where injury occurred: Home Timing - onset: How many weeks ago (2) Timing - duration: Weeks (2) Timing - details: Gradual onset, Still present (worse the past couple of days, with increased dyspnea and now fever as well.) Improved by: Rest, Meds (Her breathing is improved with use of her albuterol inhaler she has been doing sporadically the last week or so.) Worsened by: Other (Often dyspnea worse with activity. No problems with laying flat.) Associated symptoms: Weakness (generalized feeling tired and weak.). No: Numbness Contributing factors: No: Anticoagulated Similar symptoms before: Has not had sx before Recently seen: Clinic (Seen at walk-in clinic and referred to the ER for concern of "neutropenic fever". Her prior CBCs have shown white counts between 2K and 4K however so not severe neutropenia.) Review of Systems Constitutional: reports: Fever (last night/today) Nose: reports: Congestion. denies: Rhinorrhea / runny nose Throat: denies: Sore throat Cardiac: denies: Chest pain / pressure, Palpitations, Pedal edema Respiratory: reports: Dyspnea, Cough GI: denies: Abdominal Pain, Nausea, Vomiting, Diarrhea Skin: denies: Rash, Lesions Neurologic: reports: Generalized weakness. 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, Other : Kidney stones HEENT: Other Psych: Bipolar disorder, Panic attacks Musculoskeletal: Fibromyalgia, Fatigue Derm: None - Past Surgical History Past Surgical History: Yes General: Cholecystectomy, Gastric surgery HEENT: Tonsil/Adenoidectomy, Other - Present Medications Home Medications: Ambulatory Orders Medication Instructions Recorded Confirmed Levothyroxine [Synthroid] 100 mcg PO DAILY 05/25/13 03/13/21 Propranolol HCl [Inderal Xl] 120 mg ORAL DAILY 11/25/14 03/13/21 Candesartan Cilexetil [Atacand] 32 mg PO DAILY 05/20/15 03/13/21 Liothyronine [Cytomel] 10 mcg PO DAILY 03/27/17 03/13/21 Levonorgestrel-Ethin Estradiol 1 tab PO DAILY 11/26/17 03/13/21 [Jolessa 0.15 mg-0.03 mg Tablet] ZOLMitriptan [Zolmitriptan] 5 mg NS DAILY PRN 08/30/20 03/13/21 Albuterol Sulf [Ventolin Hfa 2 - 3 puffs INH Q4HR PRN #1 inhaler 04/26/21 Inhaler] Benzonatate [Tessalon] 100 mg PO TID PRN #20 cap 04/26/21 cefUROXime axetiL [Ceftin] 500 mg PO BID #14 tablet 04/26/21 dexAMETHasone [Decadron] 4 mg PO DAILY #5 tablet 04/26/21 - Allergies Allergies/Adverse Reactions: Allergies Allergy/AdvReac Type Severity Reaction Status Date / Time clindamycin Allergy Severe Rash Verified 04/26/21 10:26 pantoprazole sodium * Allergy Severe Rash Verified 04/26/21 10:26 [From Protonix] Penicillins Allergy Severe Respiratory Verified 04/26/21 10:26 prochlorperazine edisylate * Allergy Severe panic Verified 04/26/21 10:26 [From Compazine] attack prochlorperazine maleate * Allergy Severe Edema Verified 04/26/21 10:26 [From Compazine] venom-honey bee Allergy Severe Anaphylaxis Verified 04/26/21 10:26 mushroom Allergy Unknown Rash Verified 04/26/21 10:26 codeine Allergy Emesis Verified 04/26/21 10:26 hydrocodone bitartrate * Allergy Itching Verified 04/26/21 10:26 [From Vicodin] morphine AdvReac Severe Headache Verified 04/26/21 10:26 promethazine AdvReac Severe Anxiety Verified 04/26/21 10:26 zolpidem tartrate * AdvReac Severe Hallucinati Verified 04/26/21 10:26 [From Ambien] ons Iodinated Contrast Media AdvReac Rash Verified 04/26/21 10:26 - Social History Does the pt smoke?: No Smoking Status: Never smoker Does the pt drink ETOH?: No Does the pt have substance abuse?: No - Immunizations Immunizations are current?: Yes - POLST Patient has POLST: No PD ED PE NORMAL - Vitals Vital signs reviewed: Yes - General General: Alert and oriented X 3, No acute distress, Well developed/nourished - HEENT HEENT: Ears normal, Moist mucous membranes, Pharynx benign - Neck Neck: Supple, no meningeal sign, No adenopathy - Cardiac Cardiac: RRR, No murmur - Respiratory Respiratory: No respiratory distress. No: Clear bilaterally (some wheezing generally; coarse sounds in right base. ) - Abdomen Abdomen: Soft, Non tender - Derm Derm: Normal color, Warm and dry - Neuro Neuro: Alert and oriented X 3, No motor deficit, Normal speech Eye Opening: Spontaneous Motor: Obeys Commands Verbal: Oriented GCS Score: 15 - Psych Psych: Normal mood Results - Vitals Vitals: Vital Signs - 24 hr 04/26/21 04/26/21 04/26/21 10:18 11:43 14:02 Temperature 37.6 C Heart Rate 103 H 100 85 Respiratory 22 22 18 Rate Blood Pressure 110/68 97/57 L O2 Saturation 94 97 Oxygen O2 Source Room air - Labs Labs: Laboratory Tests 04/26/21 04/26/21 04/26/21 10:54 11:12 11:12 WBC 4.2 L RBC 4.45 Hgb 13.6 Hct 41.8 MCV 93.9 MCH 30.6 MCHC 32.5 RDW 14.3 Plt Count 222 MPV 10.3 Neut # (Auto) Not Reportable Lymph # (Auto) Not Reportable Preble # (Auto) Not Reportable Eos # (Auto) Not Reportable Baso # (Auto) Not Reportable Absolute Nucleated RBC Not Reportable Total Counted 100 Band Neuts % (Manual) 15 H Abnorm Lymph % (Manual) 0 Metamyelocytes % 2 H Nucleated RBC % Not Reportable Neutrophils # (Manual) 3.8 Lymphocytes # (Manual) 0.1 L Monocytes # (Manual) 0.2 Eosinophils # (Manual) 0.0 Basophils # (Manual) 0.0 Differential Comment MANUAL DIFFERENTIAL Platelet Estimate NORMAL (130-450,000) Platelet Morphology NORMAL APPEARANCE RBC Morph Micro Appear NORMAL APPEARANCE Sodium 133 L Potassium 4.6 Chloride 105 Carbon Dioxide 15 L Anion Gap 13.0 BUN 24 H Creatinine 1.3 H Estimated GFR (MDRD) 44 L Glucose 139 H Lactic Acid Calcium 9.2 Total Bilirubin 2.2 H AST 138 H ALT 119 H Alkaline Phosphatase 185 H Total Protein 6.9 Albumin 3.6 Globulin 3.3 Albumin/Globulin Ratio 1.1 Lipase 55 H Nasal Adenovirus (PCR) NOT DETECTED Nasal B. parapertussis DNA (PCR) NOT DETECTED Nasal Coronavir 229E PCR NOT DETECTED Nasal Coronavir HKU1 PCR NOT DETECTED Nasal Coronavir NL63 PCR NOT DETECTED Nasal Coronavir OC43 PCR NOT DETECTED Nasal Enterovir/Rhinovir PCR NOT DETECTED Nasal Influenza B PCR NOT DETECTED Nasal Influenza A PCR NOT DETECTED Nasal Parainfluen 1 PCR NOT DETECTED Nasal Parainfluen 2 PCR NOT DETECTED Nasal Parainfluen 3 PCR NOT DETECTED Nasal Parainfluen 4 PCR NOT DETECTED Nasal RSV (PCR) NOT DETECTED Nasal B.pertussis DNA PCR NOT DETECTED Nasal C.pneumoniae (PCR) NOT DETECTED Tarun Human Metapneumo PCR NOT DETECTED Nasal M.pneumoniae (PCR) NOT DETECTED Nasal SARS-CoV-2 (PCR) NOT DETECTED 04/26/21 11:12 WBC RBC Hgb Hct MCV MCH MCHC RDW Plt Count MPV Neut # (Auto) Lymph # (Auto) Preble # (Auto) Eos # (Auto) Baso # (Auto) Absolute Nucleated RBC Total Counted Band Neuts % (Manual) Abnorm Lymph % (Manual) Metamyelocytes % Nucleated RBC % Neutrophils # (Manual) Lymphocytes # (Manual) Monocytes # (Manual) Eosinophils # (Manual) Basophils # (Manual) Differential Comment Platelet Estimate Platelet Morphology RBC Morph Micro Appear Sodium Potassium Chloride Carbon Dioxide Anion Gap BUN Creatinine Estimated GFR (MDRD) Glucose Lactic Acid 2.2 Calcium Total Bilirubin AST ALT Alkaline Phosphatase Total Protein Albumin Globulin Albumin/Globulin Ratio Lipase Nasal Adenovirus (PCR) Nasal B. parapertussis DNA (PCR) Nasal Coronavir 229E PCR Nasal Coronavir HKU1 PCR Nasal Coronavir NL63 PCR Nasal Coronavir OC43 PCR Nasal Enterovir/Rhinovir PCR Nasal Influenza B PCR Nasal Influenza A PCR Nasal Parainfluen 1 PCR Nasal Parainfluen 2 PCR Nasal Parainfluen 3 PCR Nasal Parainfluen 4 PCR Nasal RSV (PCR) Nasal B.pertussis DNA PCR Nasal C.pneumoniae (PCR) Tarun Human Metapneumo PCR Nasal M.pneumoniae (PCR) Nasal SARS-CoV-2 (PCR) - Rads (name of study) chest xray Radiology: Prelim report reviewed (right lower atelectasis versus developing infiltrate. ), See rad report PD MEDICAL DECISION MAKING - ED course Complexity details: reviewed results (Mild atelectasis versus infiltrate in the right lower lung. Can cover for pneumonia.), considered differential (History of chronic leukopenia but not really of the level to be concern for neutropenic fever per se. We can check her blood count today to evaluate. Otherwise look for source of respiratory infection with x-ray and respiratory panel.), d/w patient ED course: Seems likely had some viral URI with exac asthma and now developing secondary pneumonia. Does not seem too sick. Departure - Departure Disposition: 01 Home, Self Care Clinical Impression: Lower resp. tract infection Dyspnea Qualifiers: Dyspnea type: shortness of breath Qualified Code(s): R06.02 - Shortness of breath Pneumonia Qualifiers: Pneumonia type: due to unspecified organism Laterality: right Lung location: lower lobe of lung Qualified Code(s): J18.9 - Pneumonia, unspecified organism Leukopenia Qualifiers: Leukopenia type: unspecified Qualified Code(s): D72.819 - Decreased white blood cell count, unspecified Condition: Stable Record reviewed to determine appropriate education?: Yes Instructions: ED Pneumonia Adult Follow-Up: Addison Hughes MD [Primary Care Provider] - Prescriptions: Albuterol Sulf [Ventolin Hfa Inhaler] 2 - 3 puffs INH Q4HR PRN #1 inhaler PRN Reason: Shortness Of Air/Wheezing cefUROXime axetiL [Ceftin] 500 mg PO BID #14 tablet dexAMETHasone [Decadron] 4 mg PO DAILY #5 tablet Benzonatate [Tessalon] 100 mg PO TID PRN #20 cap PRN Reason: Cough Comments: Well-hydrated. Continue usual medications. Use albuterol inhaler 2 to 3 puffs 4 times a day regularly and extra times as needed for shortness of breath. Do this over the next week or so. Decadron steroid for inflammation of the airways to help with the breathing breathing and less cough. Benzonatate if needed for cough. Add Tylenol if needed for pains. Cefuroxime twice daily for the next week antibiotic for the infection. Recheck if not improving well over the next few days and return if worse. Transmitted your prescriptions to [facility]. Discharge Date/Time: 04/26/21 14:04
[2021-04-26] MEDS: ONDANSETRON 4 MG/2 ML VIAL IM STA (11:10)
[2021-04-26 11:18] LABS: HCT - HEMATOCRIT 41.8 % (37.0-47.0); HGB - HEMOGLOBIN 13.6 g/dL (12.0-16.0); LYMPHOCYTES % (AUTO) 1.9 %; MEAN CORPUSCULAR HEMOGLOBIN 30.6 pg (27.0-31.0); MEAN CORPUSCULAR HGB CONC 32.5 g/dL (32.0-36.0); MEAN CORPUSCULAR VOLUME 93.9 fL (81.0-99.0); MEAN PLATELET VOLUME 10.3 fL (7.9-10.8); MONOCYTES % (AUTO) 1.9 %; NEUTROPHILS % (AUTO) 94.7 %; PLT - PLATELET COUNT 222 10^3/uL (130-450); RED BLOOD COUNT 4.45 10^6/uL (4.20-5.40); RED CELL DISTRIBUTION WIDTH 14.3 % (12.0-15.0); WHITE BLOOD COUNT 4.2 x10^3/uL (4.8-10.8)
--- NOTE | 2021-04-26 11:20 | XRAY Report ---
PROCEDURE: Chest 1 View X-Ray INDICATIONS: cough and dyspnea TECHNIQUE: One view of the chest was acquired. COMPARISON: August 30, 2020 FINDINGS: Surgical changes and devices: None. Lungs and pleura: Low lung volumes. No pleural effusions or pneumothorax. Right basilar atelectasis versus developing pneumonic infiltrate. Mediastinum: Mediastinal contours appear normal. Heart size is normal. Bones and chest wall: No suspicious bony lesions. Overlying soft tissues appear unremarkable. IMPRESSION: Right basilar atelectasis versus developing pneumonic infiltrate. Reviewed by: Caio Moura MD on 04/26/2021 11:18 AM PDT Approved by: Caio Muora MD on 04/26/2021 11:18 AM PDT Station ID: [id number]
[2021-04-26 11:25] LABS: ABNORMAL LYMPHS % (MANUAL) 0 %
[2021-04-26 11:32] LABS: ALBUMIN 3.6 g/dL (3.2-5.5); ALBUMIN/GLOBULIN RATIO 1.1 (1.0-2.2); BILIRUBIN,TOTAL 2.2 mg/dL (0.2-1.0); CALCIUM 9.2 mg/dL (8.5-10.3); CREATININE 1.3 mg/dL (0.4-1.0); POTASSIUM 4.6 mmol/L (3.5-5.0); TOTAL PROTEIN 6.9 g/dL (6.7-8.2)
[2021-04-26 11:35] LABS: BAND NEUTROPHILS % (MANUAL) 15 %; DIFFERENTIAL COMMENT MANUAL DIFFERENTIAL; LYMPHOCYTES # (MANUAL) 0.1 10^3/uL (1.5-3.5); LYMPHOCYTES % (MANUAL) 2 %; METAMYELOCYTES % (MANUAL) 2 %; MONOCYTES # (MANUAL) 0.2 10^3/uL (0.0-1.0); NEUTROPHILS # (MANUAL) 3.8 10^3/uL (1.5-6.6); PLATELET ESTIMATE, MANUAL NORMAL (130-450,000) (NORMAL); PLATELET MORPHOLOGY NORMAL APPEARANCE (NORMAL); RBC MORPHOLOGY (MULTIPLE) NORMAL APPEARANCE (NORMAL)
[2021-04-26] MEDS: ALBUTEROL 1 PUFF INH STA (11:40)
[2021-04-26] MEDS: KETOROLAC 30 MG/ML VIAL IM STA (12:35)
[2021-04-26] MEDS: cefTRIAXone 1 GM VIAL IM STA (12:49)
[2021-04-26] MEDS: LIDOCAINE 1% 2 ML VIAL MC ONE (12:49)
[2021-04-26 12:54] LABS: B. PARAPERTUSSIS- RESP PCR PAN NOT DETECTED; B. PERTUSSIS- RESP PCR PANEL NOT DETECTED; C. PNEUMONIAE- RESP PCR PANEL NOT DETECTED; CORONAVIRUS 229E-RESP PCR NOT DETECTED; CORONAVIRUS HKU1-RESP PCR NOT DETECTED; CORONAVIRUS NL63-RESP PCR NOT DETECTED; CORONAVIRUS OC43-RESP PCR NOT DETECTED; HUMAN METAPNEUMOVIRUS NOT DETECTED; INFLUENZA A- RESP PCR PANEL NOT DETECTED; INFLUENZA B - RESP PCR PANEL NOT DETECTED; M. PNEUMONIAE- RESP PCR PANEL NOT DETECTED; PARAINFLUENZA VIRUS 1 NOT DETECTED; PARAINFLUENZA VIRUS 2 NOT DETECTED; PARAINFLUENZA VIRUS 3 NOT DETECTED; PARAINFLUENZA VIRUS 4 NOT DETECTED; RHINOVIRUS/ENTEROVIRUS NOT DETECTED; RSV- RESP PCR PANEL NOT DETECTED; SARS-CoV-2 -RESP PCR PANEL NOT DETECTED
[2021-04-26 14:03] VITALS: BP 97/57
== END 2021-04-26 14:04 | disposition home or self-care (01) ==
LOC: ED 10:12
DX: J18.9 Pneumonia, unspecified organism (principal); J45.901 Unspecified asthma with (acute) exacerbation; D72.819 Decreased white blood cell count, unspecified; Z20.822 Contact with and (suspected) exposure to COVID-19; R50.9 Fever, unspecified
CPT/HCPCS: 36415; 71045; 80053; 83605; 83690; 85025; 87631; 94640; 96372; 96374; 99284; U0004; 0202U

== ENCOUNTER 2021-10-20 11:16 | Outpatient (CLI) | payer MEDICARE, OTHER ==
[2021-10-20 18:22] LABS: THYROID STIMULATING HORMONE 3.45 uIU/mL (0.34-5.60)
== END 2021-10-20 11:17 | disposition home or self-care (01) ==
LOC: LAB.N 11:16
PROVIDERS: ATTEND Family Medicine
DX: E03.9 Hypothyroidism, unspecified (principal)
CPT/HCPCS: 36415; 84443

== ENCOUNTER 2021-10-23 09:28 | Outpatient (CLI) | payer MEDICARE, OTHER ==
[2021-10-23 12:11] LABS: ABSOLUTE RETICS # AUTO 0.085 10^6/uL (0.020-0.110); BASOPHILS # (AUTO) 0.1 10^3/uL (0.0-0.1); BASOPHILS % (AUTO) 2.3 %; EOSINOPHILS # (AUTO) 0.3 10^3/uL (0.0-0.7); EOSINOPHILS % (AUTO) 10.5 %; HCT - HEMATOCRIT 38.7 % (37.0-47.0); HGB - HEMOGLOBIN 12.5 g/dL (12.0-16.0); LYMPHOCYTES # (AUTO) 1.5 10^3/uL (1.5-3.5); LYMPHOCYTES % (AUTO) 47.9 %; MEAN CORPUSCULAR HEMOGLOBIN 28.4 pg (27.0-31.0); MEAN CORPUSCULAR HGB CONC 32.3 g/dL (32.0-36.0); MEAN PLATELET VOLUME 10.9 fL (7.9-10.8); MONOCYTES # (AUTO) 0.5 10^3/uL (0.0-1.0); MONOCYTES % (AUTO) 16.4 %; NEUTROPHILS # (AUTO) 0.7 10^3/uL (1.5-6.6); NEUTROPHILS % (AUTO) 22.9 %; PLT - PLATELET COUNT 388 10^3/uL (130-450); RETICULOCYTE COUNT % (AUTO) 1.94 % (0.5-2.3); WHITE BLOOD COUNT 3.1 x10^3/uL (4.8-10.8)
[2021-10-23 12:53] LABS: % IRON SATURATION 7 % (20-50); IRON 33 ug/dL (28-170); TOTAL IRON BINDING CAPACITY 463 ug/dL (250-450); TRANSFERRIN 331 mg/dL (192-382)
[2021-10-23 12:54] LABS: FERRITIN 8.2 ng/mL (11.0-306.8)
[2021-10-23 12:58] LABS: FOLATE 13.83 ng/mL (5.90 - >24.8)
== END 2021-10-23 09:29 | disposition home or self-care (01) ==
LOC: LAB.N 09:28
PROVIDERS: ATTEND Family Medicine
DX: I10 Essential (primary) hypertension (principal); E03.9 Hypothyroidism, unspecified; M79.7 Fibromyalgia; J44.9 Chronic obstructive pulmonary disease, unspecified; D70.9 Neutropenia, unspecified; E66.01 Morbid (severe) obesity due to excess calories; D50.9 Iron deficiency anemia, unspecified; E53.8 Deficiency of other specified B group vitamins; E55.9 Vitamin D deficiency, unspecified; E78.00 Pure hypercholesterolemia, unspecified; Z98.84 Bariatric surgery status
CPT/HCPCS: 36415; 80053; 80061; 82306; 82607; 82728; 82746; 83540; 83721; 84466; 85025; 85045

== ENCOUNTER 2022-01-03 08:02 | Outpatient (CLI) | payer MEDICARE, OTHER ==
[2022-01-03 12:53] LABS: FREE T3 9.81 pg/mL (2.5-3.9); THYROID STIMULATING HORMONE 1.44 uIU/mL (0.34-5.60)
[2022-01-03 12:54] LABS: FREE T4 (FREE THYROXINE) 2.03 ng/dL (0.58-1.64)
== END 2022-01-03 08:03 | disposition home or self-care (01) ==
LOC: LAB.N 08:02
PROVIDERS: ATTEND Family Medicine
DX: E66.01 Morbid (severe) obesity due to excess calories (principal); E03.9 Hypothyroidism, unspecified
CPT/HCPCS: 36415; 84439; 84443; 84481

== ENCOUNTER 2022-07-17 09:12 | Emergency (ER) | payer MEDICARE, OTHER ==
[2022-07-17 09:50] LABS: BASOPHILS # (AUTO) 0.1 10^3/uL (0.0-0.1); BASOPHILS % (AUTO) 2.9 %; EOSINOPHILS # (AUTO) 0.3 10^3/uL (0.0-0.7); EOSINOPHILS % (AUTO) 10.3 %; HCT - HEMATOCRIT 41.3 % (37.0-47.0); HGB - HEMOGLOBIN 13.4 g/dL (12.0-16.0); LYMPHOCYTES # (AUTO) 1.4 10^3/uL (1.5-3.5); LYMPHOCYTES % (AUTO) 44.8 %; MEAN CORPUSCULAR HEMOGLOBIN 30.4 pg (27.0-31.0); MEAN CORPUSCULAR HGB CONC 32.4 g/dL (32.0-36.0); MEAN CORPUSCULAR VOLUME 93.7 fL (81.0-99.0); MEAN PLATELET VOLUME 10.4 fL (7.9-10.8); MONOCYTES # (AUTO) 0.6 10^3/uL (0.0-1.0); MONOCYTES % (AUTO) 20.3 %; NEUTROPHILS # (AUTO) 0.7 10^3/uL (1.5-6.6); NEUTROPHILS % (AUTO) 21.7 %; PLT - PLATELET COUNT 365 10^3/uL (130-450); RED BLOOD COUNT 4.41 10^6/uL (4.20-5.40); RED CELL DISTRIBUTION WIDTH 13.3 % (12.0-15.0); WHITE BLOOD COUNT 3.1 x10^3/uL (4.8-10.8)
[2022-07-17 10:03] LABS: ALBUMIN/GLOBULIN RATIO 1.1 (1.0-2.2); BILIRUBIN,TOTAL 0.7 mg/dL (0.2-1.0); CALCIUM 9.3 mg/dL (8.5-10.3); CREATININE 0.8 mg/dL (0.4-1.0); POTASSIUM 4.2 mmol/L (3.5-5.0); TOTAL PROTEIN 7.5 g/dL (6.7-8.2)
--- NOTE | 2022-07-17 13:08 | ED Physician Documentation ---
History of Present Illness - Stated complaint Stated Complaint: FEMALE - Chief complaint Chief Complaint: Abd Pain - History obtained from History obtained from: Patient - History of Present Illness Pain level max: 1 Pain level now: 1 - Additonal information Additional information: Patient is a 51-year-old female who presents to the emergency department with vaginal bleeding. She states that she has been on control pills for many years. She states that she stopped them about 8 months ago. She states that she has had increased vaginal bleeding over the past week and a half. She states she was scheduled to have a hysterectomy before COVID occurred. No lightheadedness, dizziness. No chest pain. No shortness of breath. Nothing makes it better or worse. 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, Other : Kidney stones HEENT: Other Psych: Bipolar disorder, Panic attacks Musculoskeletal: Fibromyalgia, Fatigue Derm: None - Past Surgical History Past Surgical History: Yes General: Cholecystectomy, Gastric surgery HEENT: Tonsil/Adenoidectomy, Other - Present Medications Home Medications: Ambulatory Orders Medication Instructions Recorded Confirmed Propranolol HCl [Inderal Xl] 120 mg ORAL DAILY 11/25/14 04/12/22 Candesartan Cilexetil [Atacand] 32 mg PO DAILY 05/20/15 04/12/22 ZOLMitriptan [Zolmitriptan] 5 mg NS DAILY PRN 08/30/20 04/12/22 Albuterol Sulf [Ventolin Hfa 2 - 3 puffs INH Q4HR PRN #1 inhaler 04/26/21 04/12/22 Inhaler] Medroxyprogesterone Acetate 10 mg PO BID #10 tablet 07/17/22 [Provera] - Allergies Allergies/Adverse Reactions: Allergies Allergy/AdvReac Type Severity Reaction Status Date / Time clindamycin Allergy Severe Rash Verified 07/17/22 09:25 pantoprazole sodium * Allergy Severe Rash Verified 07/17/22 09:25 [From Protonix] Penicillins Allergy Severe Respiratory Verified 07/17/22 09:25 prochlorperazine edisylate * Allergy Severe panic Verified 07/17/22 09:25 [From Compazine] attack prochlorperazine maleate * Allergy Severe Edema Verified 07/17/22 09:25 [From Compazine] venom-honey bee Allergy Severe Anaphylaxis Verified 07/17/22 09:25 mushroom Allergy Unknown Rash Verified 07/17/22 09:25 codeine Allergy Emesis Verified 07/17/22 09:25 hydrocodone bitartrate * Allergy Itching Verified 07/17/22 09:25 [From Vicodin] morphine AdvReac Severe Headache Verified 07/17/22 09:25 promethazine AdvReac Severe Anxiety Verified 07/17/22 09:25 zolpidem tartrate * AdvReac Severe Hallucinati Verified 07/17/22 09:25 [From Ambien] ons Iodinated Contrast Media AdvReac Rash Verified 07/17/22 09:25 - Social History Does the pt smoke?: No Smoking Status: Never smoker Does the pt drink ETOH?: No Does the pt have substance abuse?: No - Immunizations Immunizations are current?: Yes - POLST Patient has POLST: No PD ED PE NORMAL - Vitals Vital signs reviewed: Yes - General General: Alert and oriented X 3, No acute distress, Well developed/nourished - HEENT HEENT: Moist mucous membranes - Neck Neck: Supple, no meningeal sign - Cardiac Cardiac: RRR, Strong equal pulses - Respiratory Respiratory: No respiratory distress, Clear bilaterally - Abdomen Abdomen: Soft, Non tender, Non distended - Female Female : Pt declined - Derm Derm: Warm and dry - Extremities Extremities: No edema - Neuro Neuro: Alert and oriented X 3 - Psych Psych: Normal mood, Normal affect Results - Vitals Vitals: Vital Signs - 24 hr 07/17/22 07/17/22 07/17/22 09:20 09:24 12:16 Temperature 36.4 C L 36.5 C Heart Rate 77 77 77 Respiratory 16 16 16 Rate Blood Pressure 132/104 H 132/104 H 118/90 H O2 Saturation 97 97 98 07/17/22 14:19 Temperature Heart Rate 74 Respiratory 18 Rate Blood Pressure 122/58 L O2 Saturation 100 Oxygen O2 Source Room air - Labs Labs: Laboratory Tests 07/17/22 07/17/22 07/17/22 09:40 09:40 09:40 WBC 3.1 L RBC 4.41 Hgb 13.4 Hct 41.3 MCV 93.7 MCH 30.4 MCHC 32.4 RDW 13.3 Plt Count 365 MPV 10.4 Neut # (Auto) 0.7 L Lymph # (Auto) 1.4 L Ransom # (Auto) 0.6 Eos # (Auto) 0.3 Baso # (Auto) 0.1 Absolute Nucleated RBC 0.00 Nucleated RBC % 0.0 Sodium 137 Potassium 4.2 Chloride 103 Carbon Dioxide 23 Anion Gap 11.0 BUN 16 Creatinine 0.8 Estimated GFR (MDRD) 76 L Glucose 132 H Calcium 9.3 Total Bilirubin 0.7 AST 15 ALT 14 Alkaline Phosphatase 122 H Total Protein 7.5 Albumin 4.0 Globulin 3.5 Albumin/Globulin Ratio 1.1 Lipase 25 Blood Type A POSITIVE - Rads (name of study) pelvic US Radiology: Final report received, See rad report PD Medical Decision Making - ED course Complexity details: reviewed results, re-evaluated patient, considered differential, d/w patient, d/w e business consultant ED course: 51-year-old female presents with vaginal bleeding. No abnormal vital signs. Her hemoglobin and hematocrit are normal. 13.4/41.3. Her chemistry does not show any acute abnormalities. Her ultrasound does not reveal any significant abnormalities other than a thickened endometrium at approximately 11 mm. There is no free pelvic fluid. Patient does not want a pelvic exam at this time. I discussed the case with gynecology on-call, Dr. Couch. He recommends starting Provera 10 mg by mouth twice daily for 5 days. She will then resume her normal OCP medication at home. She will follow-up in the office for further care. Patient counseled regarding signs and symptoms for which I believe and urgent re-evaluation would be necessary. Patient with good understanding of and agreement to plan and is comfortable going home at this time This document was made in part using voice recognition software. While efforts are made to proofread this document, sound alike and grammatical errors may occur. Departure - Departure Disposition: 01 Home, Self Care Clinical Impression: Menorrhagia Qualifiers: Menorrhagia type: with irregular cycle Qualified Code(s): N92.1 - Excessive and frequent menstruation with irregular cycle Condition: Good Instructions: ED Bleeding Menstrual Heavy Follow-Up: Addison Hughes MD [Primary Care Provider] - Within 1 week Prescriptions: Medroxyprogesterone Acetate [Provera] 10 mg PO BID #10 tablet Comments: Your prescription was sent to [facility] in [place]. I spoke with Dr. Couch today, he is the hospice volunteer on-call. He recommends Provera 10 mg twice a day x5 days. Please call the clinic for a follow-up appointment within the next week. Please return if you worsen. I would recommend restarting your control too after the provera Discharge Date/Time: 07/17/22 14:26
--- NOTE | 2022-07-17 13:59 | Ultrasound Report ---
PROCEDURE: Pelvic w/Transvag+Doppler Comp INDICATIONS: pelvic pain, vaginal bleeding TECHNIQUE: Real-time scanning was performed of the pelvic organs, with image documentation. Additional endovagi nal scanning was necessary due to incomplete visualization of the adnexal and endometrial structures by transabdominal scanning. Doppler interrogation was performed of the ovaries bilaterally. COMPARISON: None. FINDINGS: No pathologic free abdominal or pelvic fluid. Uterus: Uterus is normal in size at 12.0 x 7.2 x 5.1 cm. 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 The en dometrium measures 11 mm in combined thickness. Ovaries: Right and left ovaries measure 3.5 x 2.8 x 2.2 cm and 3.3 x 1.9 x 1.8 cm respectively. Both ovaries have appropriate echotexture vascularity. Ovarian cyst simple cyst measures 1.4 cm Other: No free pelvic fluid. IMPRESSION: Unremarkable ultrasound pelvis. Incidental simple right ovarian cyst, 1.4 cm Reviewed by: Roddy Hatch MD on 07/17/2022 12:58 PM AKST Approved by: Roddy Hatch MD on 07/17/2022 12:58 PM AKST Station ID: [id number]
[2022-07-17 14:26] VITALS: BP 122/58
== END 2022-07-17 14:26 | disposition home or self-care (01) ==
LOC: ED 09:12
DX: N92.1 Excessive and frequent menstruation with irregular cycle (principal)
CPT/HCPCS: 36415; 80053; 83690; 85025; 86900; 86901; 93975; 99283; 99284

== ENCOUNTER 2022-08-22 11:29 | Outpatient (CLI) | payer MEDICARE, OTHER ==
[2022-08-22 20:32] LABS: FREE T3 3.58 pg/mL (2.5-3.9)
[2022-08-22 21:12] LABS: THYROID STIMULATING HORMONE 1.11 uIU/mL (0.34-5.60)
[2022-08-22 21:14] LABS: FREE T4 (FREE THYROXINE) 0.79 ng/dL (0.58-1.64)
[2022-08-22 21:21] LABS: ESTIMATED AVERAGE GLUCOSE 105 mg/dL (70-100); HEMOGLOBIN A1c% 5.3 % (4.27-6.07)
== END 2022-08-22 11:30 | disposition home or self-care (01) ==
LOC: LAB.N 11:29
PROVIDERS: ATTEND Family Medicine
DX: N93.9 Abnormal uterine and vaginal bleeding, unspecified (principal); E03.9 Hypothyroidism, unspecified
CPT/HCPCS: 36415; 82397; 82670; 83036; 84439; 84443; 84481

== ENCOUNTER 2022-11-28 16:11 | Outpatient (CLI) | payer MEDICARE, OTHER ==
[2022-11-28 16:54] LABS: CHOL/HDL RATIO 3.7 (<4.4); CHOLESTEROL 186 mg/dL; HDL CHOLESTEROL 50 mg/dL; LDL CHOLESTEROL,CALCULATED 112 mg/dL; LDL/HDL RATIO 2.2 (<4.4); TRIGLYCERIDES 120 mg/dL; VLDL CHOLESTEROL 24 mg/dL
[2022-11-28 17:32] LABS: ESTIMATED AVERAGE GLUCOSE 108 mg/dL (70-100); HEMOGLOBIN A1c% 5.4 % (4.27-6.07)
== END 2022-11-28 16:12 | disposition home or self-care (01) ==
LOC: DI 16:11
PROVIDERS: ATTEND Obstetrics & Gynecology
DX: R61 Generalized hyperhidrosis (principal)
CPT/HCPCS: 36415; 80053; 80061; 83036; 83721

== ENCOUNTER 2023-05-17 09:27 | Outpatient (CLI) | payer MEDICARE, OTHER ==
--- NOTE | 2023-05-20 10:14 | Mammography Report ---
BILATERAL DIGITAL SCREENING MAMMOGRAM 3D/2D: 05/17/2023 CLINICAL: Routine screening. Comparison is made to exams dated: 05/12/2018 mammogram and 04/24/2013 mammogram - [facility]. There are scattered areas of fibroglandular density in both breasts (category b / 25%-50% glandular t issue). No significant masses, calcifications, or other findings are seen in either breast. There has been no significant interval change. IMPRESSION: NEGATIVE There is no mammographic evidence of malignancy. A 1 year screening mammogram is recommended. Based on the Tyrer Cuzick model (a risk assessment model) the patients lifetime risk is 12.3% and he r 10 year risk is 3.1%. According to the ACR, ACS, and NCCN guidelines, an annual breast MRI exam maddi ng with mammogram is recommended if the patients lifetime risk is 20% or greater. This exam was interpreted at Station ID: [id number]. NOTE: For mammograms, a report in lay terms will be sent to the patient. Approximately 15% of breast malignancies will not be visualized mammographically. In the management of a palpable breast mass, a negative mammogram must not discourage biopsy of a clinically suspicious lesion. Electronically Signed By: Ar amanda/sarai:05/17/2023 10:16:11 letter sent: No_Letter ACR BI-RADS Category 1: Negative [id number] PARENCHYMAL PATTERN: (A) - The breast(s) demonstrate(s) scattered fibroglandular densities. BI-RADS CATEGORY: (1) - 1 Mammogram [id number] 1 year screening LATERALITY: (B)
== END 2023-05-17 09:28 | disposition home or self-care (01) ==
LOC: DI 09:27
DX: Z12.31 Encounter for screening mammogram for malignant neoplasm of breast (principal); R92.323 Mammographic fibroglandular density, bilateral breasts

== ENCOUNTER 2023-09-04 11:39 | Outpatient (CLI) | payer MEDICARE, OTHER ==
[2023-09-04 12:20] LABS: BASOPHILS # (AUTO) 0.1 10^3/uL (0.0-0.1); BASOPHILS % (AUTO) 1.9 %; EOSINOPHILS # (AUTO) 0.4 10^3/uL (0.0-0.7); EOSINOPHILS % (AUTO) 9.5 %; HGB - HEMOGLOBIN 12.3 g/dL (12.0-16.0); LYMPHOCYTES # (AUTO) 1.5 10^3/uL (1.5-3.5); LYMPHOCYTES % (AUTO) 40.1 %; MEAN CORPUSCULAR HEMOGLOBIN 27.6 pg (27.0-31.0); MEAN CORPUSCULAR VOLUME 92.1 fL (81.0-99.0); MEAN PLATELET VOLUME 11.7 fL (7.9-10.8); MONOCYTES # (AUTO) 0.5 10^3/uL (0.0-1.0); MONOCYTES % (AUTO) 12.3 %; NEUTROPHILS # (AUTO) 1.3 10^3/uL (1.5-6.6); NEUTROPHILS % (AUTO) 36.2 %; PLT - PLATELET COUNT 277 10^3/uL (130-450); RED BLOOD COUNT 4.45 10^6/uL (4.20-5.40); RED CELL DISTRIBUTION WIDTH 14.2 % (12.0-15.0); WHITE BLOOD COUNT 3.7 x10^3/uL (4.8-10.8)
[2023-09-04 12:41] LABS: ALBUMIN 4.1 g/dL (3.2-5.5); ALBUMIN/GLOBULIN RATIO 1.4 (1.0-2.2); ALKALINE PHOSPHATASE 113 IU/L (42-121); ALT ALANINE AMINOTRANSFERASE 14 IU/L (10-60); AST ASPARTATE AMINOTRANSFERASE 13 IU/L (10-42); BILIRUBIN,TOTAL 0.3 mg/dL (0.2-1.0); BUN - BLOOD UREA NITROGEN 17 mg/dL (6-20); CALCIUM 9.8 mg/dL (8.5-10.3); CARBON DIOXIDE - CO2 23 mmol/L (21-32); CHLORIDE 107 mmol/L (101-111); CHOL/HDL RATIO 4.1 (<4.4); CHOLESTEROL 197 mg/dL; CREATININE 0.8 mg/dL (0.6-1.3); GFR - MDRD 76 (>89); GLUCOSE 101 mg/dL (74-104); HDL CHOLESTEROL 48 mg/dL; LDL CHOLESTEROL,CALCULATED 124 mg/dL; LDL/HDL RATIO 2.6 (<4.4); POTASSIUM 4.3 mmol/L (3.5-4.5); SODIUM 138 mmol/L (135-145); TRIGLYCERIDES 124 mg/dL (48-352); VLDL CHOLESTEROL 25 mg/dL
[2023-09-04 12:55] LABS: THYROID STIMULATING HORMONE 1.28 uIU/mL (0.34-5.60)
[2023-09-04 20:07] LABS: ESTIMATED AVERAGE GLUCOSE 111 mg/dL (70-100); HEMOGLOBIN A1c% 5.5 % (4.27-6.07)
== END 2023-09-04 11:40 | disposition home or self-care (01) ==
LOC: LAB 11:39
PROVIDERS: ATTEND Family Medicine
DX: I10 Essential (primary) hypertension (principal); E66.01 Morbid (severe) obesity due to excess calories; Z68.43 Body mass index [BMI] 50.0-59.9, adult; D70.9 Neutropenia, unspecified; E53.8 Deficiency of other specified B group vitamins; E55.9 Vitamin D deficiency, unspecified; E78.00 Pure hypercholesterolemia, unspecified; M79.7 Fibromyalgia
CPT/HCPCS: 36415; 80053; 80061; 82306; 82607; 83036; 83721; 84439; 84443; 84481; 85025

== ENCOUNTER 2024-02-13 09:23 | Outpatient (CLI) | payer MEDICARE, OTHER ==
[2024-02-13 12:14] LABS: BASOPHILS % (AUTO) 2.3 %; EOSINOPHILS % (AUTO) 8.7 %; HCT - HEMATOCRIT 43.6 % (37.0-47.0); LYMPHOCYTES % (AUTO) 55.9 %; MEAN CORPUSCULAR HEMOGLOBIN 29.9 pg (27.0-31.0); MEAN CORPUSCULAR HGB CONC 32.1 g/dL (32.0-36.0); MEAN CORPUSCULAR VOLUME 93.2 fL (81.0-99.0); MEAN PLATELET VOLUME 12.8 fL (7.9-10.8); MONOCYTES % (AUTO) 22.1 %; PLT - PLATELET COUNT 276 10^3/uL (130-450); RED BLOOD COUNT 4.68 10^6/uL (4.20-5.40); RED CELL DISTRIBUTION WIDTH 13.1 % (12.0-15.0); WHITE BLOOD COUNT 2.6 x10^3/uL (4.8-10.8)
[2024-02-13 12:27] LABS: SLIDE REVIEW? Indicated
[2024-02-13 12:40] LABS: ALBUMIN 4.7 g/dL (3.2-5.5); ALBUMIN/GLOBULIN RATIO 1.6 (1.0-2.2); BILIRUBIN,TOTAL 0.5 mg/dL (0.2-1.0); CALCIUM 10.7 mg/dL (8.5-10.3); CREATININE 1.2 mg/dL (0.6-1.3); POTASSIUM 4.9 mmol/L (3.5-4.5); TOTAL PROTEIN 7.6 g/dL (6.4-8.9)
[2024-02-13 12:44] LABS: THYROID STIMULATING HORMONE 0.02 uIU/mL (0.34-5.60)
[2024-02-13 13:31] LABS: ABNORMAL LYMPHS % (MANUAL) 0 %
[2024-02-13 13:38] LABS: BAND NEUTROPHILS % (MANUAL) 1 %; BASOPHILS # (MANUAL) 0.1 10^3/uL (0-0.1); BASOPHILS % (MANUAL) 2 %; EOSINOPHILS # (MANUAL) 0.3 10^3/uL (0-0.7); LYMPHOCYTES # (MANUAL) 1.5 10^3/uL (1.5-3.5); LYMPHOCYTES % (MANUAL) 56 %; MONOCYTES # (MANUAL) 0.5 10^3/uL (0.0-1.0); PLATELET ESTIMATE, MANUAL NORMAL (130-450,000) (NORMAL); PLATELET MORPHOLOGY 1+ GIANT PLATELETS (NORMAL); RBC MORPHOLOGY (MULTIPLE) NORMAL APPEARANCE (NORMAL)
[2024-02-13 13:39] LABS: NEUTROPHILS # (MANUAL) 0.3 10^3/uL (1.5-6.6)
[2024-02-13 13:40] LABS: DIFFERENTIAL COMMENT MANUAL DIFFERENTIAL
[2024-02-13 14:18] LABS: ESTIMATED AVERAGE GLUCOSE 103 mg/dL (70-100); HEMOGLOBIN A1c% 5.2 % (4.27-6.07)
== END 2024-02-13 09:24 | disposition home or self-care (01) ==
LOC: LAB.N 09:23
PROVIDERS: ATTEND Family Medicine
DX: I10 Essential (primary) hypertension (principal); Z98.84 Bariatric surgery status; D70.9 Neutropenia, unspecified; E03.9 Hypothyroidism, unspecified; M79.7 Fibromyalgia
CPT/HCPCS: 36415; 80053; 83036; 84439; 84443; 84481; 85025

== ENCOUNTER 2024-11-09 16:47 | Inpatient (IN) ==
--- OUTSIDE RECORDS SUMMARY | 2024-11-09 17:36 | EXTERNAL MEDICAL SUMMARY RPT | Continuity of Care Document ---
Author Organization [facility] Address [address] [place] [id number] Phone Problems date description facility 2024-09-02 08:35 Iron deficiency anemia, unspeci fied [email or web address] 2024-09-02 10:36 Neutropenia, unspecified [facility] 2024-09-02 10:51 Neutropenia, unspecified [facility] 2024-09-02 13:28 Other iron deficiency [facility] 2024-09-02 13:28 Neutropenia, unspecified [facility] 2024-09-02 13:28 Encounter for genera l adult medical examination without abnormal findings [facility] 2024-09-04 13:29 Other iron deficiency [facility] 2024-09-04 13:29 Neutropenia, unspecified [facility] 2024-09-04 13:29 Encounter for genera l adult medical examination without abnormal findings [email or web address] 2024-09-07 08:13 Neutropenia, unspecified [facility] 2024-09-08 00:03 Neutropenia, unspecified [facility] 2024-09-17 13:18 Neutropenia, unspecified [facility] 2024-09-18 00:04 Neutropenia, unspecified [facility] 2024-09-18 12:55 Neutropenia, unspecified [facility] 2024-09-22 12:45 Iron deficiency anemia, unspeci fied [facility] 2024-09-22 12:45 Neutropenia, unspecified [facility] 2024-09-23 08:25 Neutropenia, unspecified [facility] 2024-09-23 09:56 Neutropenia, unspecified [facility] 2024-09-23 10:05 Neutropenia, unspecified [facility] 2024-09-24 00:03 Neutropenia, unspecified [facility] 2024-09-28 13:41 Neutropenia, unspecified [facility] 2024-09-28 13:42 Other iron deficiency anemias [facility] 2024-09-28 13:42 Neutropenia, unspecified [email or web address] 2024-09-28 13:42 Encounter for genera l adult medical examination without abnormal findings [facility] 2024-09-30 10:03 Neutropenia, unspecified [email or web address] 2024-10-01 00:04 Neutropenia, unspecified [email or web address] 2024-10-07 09:13 Neutropenia, unspecified [email or web address] 2024-10-08 00:05 Neutropenia, unspecified [email or web address] 2024-10-26 08:45 Iron deficiency anemia, unspeci fied [facility] 2024-10-26 08:45 Neutropenia, unspecified [email or web address] 2024-10-26 13:04 Neutropenia, unspecified [email or web address] 2024-10-26 14:35 Neutropenia, unspecified [email or web address] 2024-10-27 00:04 Neutropenia, unspecified [email or web address] Results/Labs test date facility value unit notes Result panel 1 ESTRADIOL SENSITIVE 2024-07-29 09:13 [facility] (missing ) (missing) Social History date description facility
[2024-11-09 17:41] LABS: BASOPHILS # (AUTO) 0.1 10^3/uL (0.0-0.1); EOSINOPHILS # (AUTO) 0.1 10^3/uL (0.0-0.7); EOSINOPHILS % (AUTO) 2.7 %; HGB - HEMOGLOBIN 13.7 g/dL (12.0-16.0); LYMPHOCYTES # (AUTO) 1.1 10^3/uL (1.5-3.5); LYMPHOCYTES % (AUTO) 24.2 %; MEAN CORPUSCULAR HEMOGLOBIN 31.4 pg (27.0-31.0); MEAN CORPUSCULAR HGB CONC 32.6 g/dL (32.0-36.0); MEAN CORPUSCULAR VOLUME 96.1 fL (81.0-99.0); MEAN PLATELET VOLUME 10.6 fL (7.9-10.8); MONOCYTES # (AUTO) 0.7 10^3/uL (0.0-1.0); MONOCYTES % (AUTO) 14.9 %; NEUTROPHILS # (AUTO) 2.5 10^3/uL (1.5-6.6); PLT - PLATELET COUNT 370 10^3/uL (130-450); RED BLOOD COUNT 4.37 10^6/uL (4.20-5.40); RED CELL DISTRIBUTION WIDTH 12.7 % (12.0-15.0); WHITE BLOOD COUNT 4.4 x10^3/uL (4.8-10.8)
[2024-11-09 17:54] LABS: ALBUMIN 4.8 g/dL (3.2-5.5); ALBUMIN/GLOBULIN RATIO 1.5 (1.0-2.2); BILIRUBIN,TOTAL 0.5 mg/dL (0.2-1.0); CALCIUM 10.9 mg/dL (8.5-10.3); CREATININE 0.8 mg/dL (0.6-1.3); POTASSIUM 4.2 mmol/L (3.5-4.5)
[2024-11-09 19:38] LABS: BILIRUBIN,URINE NEGATIVE (NEGATIVE); GLUCOSE, URINE (UA) NEGATIVE (NEGATIVE); KETONES,URINE (UA) 15 mg/dL (NEGATIVE); LEUKOCYTE ESTERASE, URINE NEGATIVE (NEGATIVE); NITRITE,URINE NEGATIVE (NEGATIVE); OCCULT BLOOD,URINE NEGATIVE (NEGATIVE); PROTEIN,URINE NEGATIVE (NEGATIVE); UROBILINOGEN,URINE 0.2 (NORMAL) E.U./dL (NORMAL)
[2024-11-09 19:47] LABS: CLARITY,URINE CLEAR (CLEAR)
--- NOTE | 2024-11-09 20:12 | ED Physician Documentation ---
History of Present Illness Stated complaint Stated Complaint: ABD PX Chief complaint Chief Complaint: Abd Pain History obtained from History obtained from: Patient History of Present Illness Timing: Prior to arrival Additonal information Additional information: Patient is a 54-year-old female presenting to the emergency department with past medical history of chronic neutropenia, gastric bypass, history of cholecystectomy, hernia, kidney stones, on zep bound. Patient has no fevers but has history of chronic neutropenia normal bowel movements she has no vomiting but some nausea. Symptoms started around 2 PM this afternoon with cramping pain radiating from her right side into her lower back as well as her left side flank. She describes as a stabbing pain worsening with movement no diarrhea. She has a history of cyclical vomiting syndrome but symptoms do not feel similar. No previous complications with gastric bypass Meds/Allgy Home Medications Ambulatory Orders Medication Instructions Recorded Confirmed cholecalciferol (vitamin D3) 50 50 mcg PO QDAY 05/21/24 09/23/24 mcg (2,000 unit) capsule epinephrine 0.3 mg/0.3 mL 0.3 mg (0.3 mL) IM Q30M PRN 05/21/24 09/23/24 injection, auto-injector (EpiPen bronchodilation #6 ea 2-Stephen) estradiol acetate 0.1 mg/24 hr 1 vag ring vaginal [id number] 05/21/24 09/23/24 vaginal ring (Femring) liothyronine 5 mcg tablet 20 mcg PO QDAY 05/21/24 09/23/24 thyroid (pork) 90 mg tablet (HOME HEALTH ATTENDANT 90 mg PO QDAY 05/21/24 09/23/24 Thyroid) zolmitriptan 5 mg nasal spray 5 mg intranasal DAILY PRN Headache 06/04/24 09/23/24 #6 ea cyanocobalamin (vitamin B-12) 1,000 mcg PO QDAY 06/16/24 09/23/24 1,000 mcg capsule tirzepatide 12.5 mg/0.5 mL 12.5 mg subcut QWEEK 06/16/24 09/23/24 subcutaneous pen injector (Mountorriero) candesartan 16 mg tablet 32 mg (2 x 16 mg) PO QDAY #90 tabs 06/23/24 09/23/24 metformin 500 mg tablet,extended mg PO 12/10/24 03/12/25 release 24 hr ondansetron 8 mg disintegrating See Rx Instructions .Route 07/17/24 09/23/24 tablet .COMPLEX #90 tabs oxycodone-acetaminophen 10 mg-325 0.5 tab PO QID PRN pain #10 tabs 09/18/24 09/23/24 mg tablet oxycodone-acetaminophen 10 mg-325 1 tab PO 09/18/24 09/23/24 mg tablet filgrastim-aafi 480 mcg/0.8 mL 480 mcg (0.8 mL) subcut .COMPLEX 09/30/24 subcutaneous syringe #1.6 mL albuterol sulfate 90 mcg/actuation See Rx Instructions .Route 11/02/24 aerosol inhaler .COMPLEX #8.5 grams progesterone micronized 100 mg 100 mg PO QDAY #90 caps 11/05/24 capsule (Prometrium) Allergies Allergies Allergy/AdvReac Type Severity Reaction Status Date / Time clindamycin Allergy Severe Rash Verified 11/09/24 17:20 pantoprazole sodium * (From Allergy Severe Rash Verified 11/09/24 17:20 Protonix) Penicillins Allergy Severe Respiratory Verified 11/09/24 17:20 prochlorperazine edisylate * Allergy Severe panic Verified 11/09/24 17:20 (From Compazine) attack prochlorperazine maleate * Allergy Severe Edema Verified 11/09/24 17:20 (From Compazine) venom-honey bee Allergy Severe Anaphylaxis Verified 11/09/24 17:20 mushroom Allergy Unknown Rash Verified 11/09/24 17:20 codeine Allergy Emesis Verified 11/09/24 17:20 hydrocodone bitartrate * Allergy Itching Verified 11/09/24 17:20 (From Vicodin) morphine AdvReac Severe Headache Verified 11/09/24 17:20 promethazine AdvReac Severe Anxiety Verified 11/09/24 17:20 zolpidem tartrate * (From AdvReac Severe Hallucinati Verified 11/09/24 17:20 Ambien) ons Iodinated Contrast Media AdvReac Rash Verified 11/09/24 17:20 PFSH Active Problems All Active Problems (Updated 09/18/24 @ 13:23 by Abdi Pastor MD) Pain, dental (Acute) Bipolar disease, chronic (Acute) Chronic sinusitis (Acute) Fibromyalgia (Acute) Hypothyroidism (Acute) Weight gain following gastric bypass surgery (Acute) Morbid obesity (Acute) Healthcare maintenance (Acute) Iron deficiency anemia (Acute) Chronic neutropenia (Acute) Vasomotor symptoms due to menopause (Acute) Back spasm (Acute) Migraine (Acute) Nausea & vomiting (Acute) Elevated liver enzymes (Acute) Medical History Medical History (Updated 09/18/24 @ 13:23 by Abdi Pastor MD) Pyelonephritis Sinusitis Neutropenia Osteomyelitis Headache Abdominal pain Surgical History Surgical History (Updated 06/27/24 @ 09:28 by Addison Hughes MD) History of Елена-en-Y gastric bypass Social History Social History (Updated 06/23/24 @ 13:38 by Latrell Muhammad MA) Smoking Status: Never smoker Second hand tobacco smoke exposure: No Do you dip or chew tobacco?: No Do you vape?: No Patient requests smoking cessation consult: No Initiate information on smoking cessation: No Living arrangement: At home Marital Status: Living Condition: With spouse/s.o. Relationship: Level: Independent Do you feel safe in your home environment?: Yes Suffered physical, verbal, emotional, or financial abuse?: No History of Abuse: No ETOH Use: None Substance Use: denies use Are you sexually active?: Yes Control Method: None Occupation: disability Retired: No Service: No Are you following a diet prescribed by a doctor: Yes Are you following a special diet: No Special Diet Details: 1000grams protein POLST Patient has POLST: No Exam Exam Vital Signs: Vital Signs x48h Temp Pulse Resp BP Pulse Ox 11/09/24 22:09 89 20 155/112 H 97 11/09/24 20:21 99 21 147/104 H 96 11/09/24 17:20 36.5 C 125 H 18 122/85 99 HENMT normocephalic Eyes PERRL, EOMs intact bilaterally and conjunctivae normal Chest inspection of chest normal Gastrointestinal abdomen normal to inspection Abdomen is soft generalized tenderness on abdomen no specific CVA tenderness. Active bowel sounds diminished on auscultation but present on exam no obvious di stention no ascites appreciated here in the Ed. Extremities normal to inspection Results Vitals Vitals: Vital Signs - 24 hr 11/09/24 17:20 11/09/24 20:21 11/09/24 20:46 Temperature 36.5 C Temperature Source Temporal Artery Scan Pulse Rate 125 H 99 Respiratory Rate 18 21 Blood Pressure 122/85 147/104 H O2 Saturation 99 96 O2 Source Room air Room air Pain Intensity 8 8 10 11/09/24 22:01 11/09/24 22:04 11/09/24 22:09 Temperature Temperature Source Pulse Rate 89 Respiratory Rate 20 Blood Pressure 155/112 H O2 Saturation 97 O2 Source Room air Pain Intensity 9 8 Oxygen O2 Source Room air Labs Labs: Laboratory Tests 11/09/24 11/09/24 17:37 19:31 WBC 4.4 L RBC 4.37 Hgb 13.7 Hct 42.0 MCV 96.1 MCH 31.4 H MCHC 32.6 RDW 12.7 Plt Count 370 MPV 10.6 Neut # (Auto) 2.5 Lymph # (Auto) 1.1 L [place] # (Auto) 0.7 Eos # (Auto) 0.1 Baso # (Auto) 0.1 Absolute Nucleated RBC 0.00 Nucleated RBC % 0.0 Sodium 134 L Potassium 4.2 Chloride 98 L Carbon Dioxide 24 Anion Gap 12.0 BUN 24 H Creatinine 0.8 Estimated GFR (MDRD) 75 L Glucose 138 H Calcium 10.9 H Total Bilirubin 0.5 AST 16 ALT 14 Alkaline Phosphatase 99 Total Protein 8.0 Albumin 4.8 Globulin 3.2 Albumin/Globulin Ratio 1.5 Lipase 22 Urine Color YELLOW Urine Clarity CLEAR Urine pH 6.0 Ur Specific [place] 1.020 Urine Protein NEGATIVE Urine Glucose (UA) NEGATIVE Urine Ketones 15 H Urine Occult Blood NEGATIVE Urine Nitrite NEGATIVE Urine Bilirubin NEGATIVE Urine Urobilinogen 0.2 (NORMAL) Ur Leukocyte Esterase NEGATIVE Ur Microscopic Review NOT INDICATED Urine Culture Comments NOT INDICATED PD Medical Decision Making ED course Complexity details: reviewed old records and reviewed results ED course: Patient is a 54-year-old female presenting to the emergency department with abdominal cramping symptoms started suddenly this afternoon around 2 PM she notes symptoms feel similar to when she has had kidney stones in the past but her pain is on both of her flanks and in her right lower abdomen. She has a past medical history remarkable for cholecystectomy history of hernia and history of gastric bypass. She denies any fevers or chills but has been having nausea. No history of complications with her gastric bypass. She has a history of cyclical vomiting syndrome but her symptoms do not feel similar to this. She has stable vitals on arrival she received a dose of Dilaudid here in the ED and a dose of Zofran with IV fluids. CBC showed no leukocytosis but she does have a history of chronic neutropenia requiring Neupogen shots in the outpatient setting followed by Dr. Shaver. UA and CMP are unremarkable. CT abdomen pelvis without contrast was sent as patient has allergy to iodine. Patient taken over in the emergency department by Dr. Irvin Discharge Plan Discharge Prescriptions: No Action epinephrine [EpiPen 2-Stephen] 0.3 mg/0.3 mL auto-injector 0.3 mg IM Q30M PRN (Reason: bronchodilation) Qty: 6 1RF Rx Instructions: do not exceed 12 doses per 24 hrs zolmitriptan 5 mg spray,non-aerosol 5 mg intranasal DAILY PRN (Reason: Headache) Qty: 6 0RF ondansetron 8 mg tablet,disintegrating See Rx Instructions .ROUTE .COMPLEX Qty: 90 3RF Dose Instruction: PLACE 1 TABLET ON TONGUE EVERY 8 HOURS NEEDED FOR NAUSEA AND VOMITING Rx Instructions: PLACE 1 TABLET ON TONGUE EVERY 8 HOURS NEEDED FOR NAUSEA AND VOMITING filgrastim-aafi 480 mcg/0.8 mL syringe 480 mcg subcut .COMPLEX Qty: 1.6 0RF Rx Instructions: 480 mcg subcutaneously once weekly; Continue filgrastim related to oral aruna alonso, subcutaneously until week of f/u w/ Dr. Shaver. albuterol sulfate 90 mcg/actuation HFA aerosol inhaler See Rx Instructions .ROUTE .COMPLEX Qty: 8.5 12RF Dose Instruction: USE 2 TO 3 INHALATIONS EVERY 4 HOURS NEEDED FOR SHORTNESS OF AIR/WHEEZING Rx Instructions: USE 2 TO 3 INHALATIONS EVERY 4 HOURS NEEDED FOR SHORTNESS OF AIR/WHEEZING progesterone micronized [Prometrium] 100 mg capsule 100 mg PO QDAY Qty: 90 3RF metformin 500 mg tablet extended release 24 hr PO candesartan 16 mg tablet 32 mg PO QDAY Qty: 90 3RF oxycodone-acetaminophen 10-325 mg tablet 1 tab PO Patient Comments: TAKE ONE TABLET BY MOUTH EVERY EIGHT HOURS NEEDED FOR PAIN oxycodone-acetaminophen 10-325 mg tablet 0.5 tab PO QID PRN (Reason: pain) Qty: 10 0RF liothyronine 5 mcg tablet 20 mcg PO QDAY Patient Comments: Take 4 tablet by mouth once a day as directed on empty stomach thyroid (pork) [HOME HEALTH ATTENDANT Thyroid] 90 mg tablet 90 mg PO QDAY Patient Comments: TAKE 1 TABLET DAILY Femring 0.1 mg/24 hr ring 1 vag ring vaginal [id number] cholecalciferol (vitamin D3) 50 mcg (2,000 unit) capsule 50 mcg PO QDAY cyanocobalamin (vitamin B-12) 1,000 mcg capsule 1,000 mcg PO QDAY Mounjaro 12.5 mg/0.5 mL pen injector 12.5 mg subcut QWEEK Print Language: Slovenian Stand Alone Forms: PCP List
[2024-11-09] MEDS: HYDROmorphone 0.5 MG/0.5 ML SYRINGE IM STA (20:46)
[2024-11-09] MEDS: ONDANSETRON 4 MG/2 ML VIAL IVP STA (20:46)
[2024-11-09] MEDS: SODIUM CHLORIDE 0.9% 1,000 ML IV STA (21:11)
[2024-11-09] MEDS: HYDROmorphone 0.5 MG/0.5 ML SYRINGE IVP STA (22:01)
--- NOTE | 2024-11-09 23:10 | ED Physician Documentation ---
ED Addendum Addendum Addendum: Patient signed out to me by TOÑO just a few minutes before overnight emergency physician came in. RN reported to me that she wanted more pain medication and I ordered this. The CT is pending on my signout to overnight emergency physician. To my eye it looks most consistent with constipation causing her crampy abdominal pain. Discharge Plan Discharge Prescriptions: No Action epinephrine [EpiPen 2-Stephen] 0.3 mg/0.3 mL auto-injector 0.3 mg IM Q30M PRN (Reason: bronchodilation) Qty: 6 1RF Rx Instructions: do not exceed 12 doses per 24 hrs zolmitriptan 5 mg spray,non-aerosol 5 mg intranasal DAILY PRN (Reason: Headache) Qty: 6 0RF ondansetron 8 mg tablet,disintegrating See Rx Instructions .ROUTE .COMPLEX Qty: 90 3RF Dose Instruction: PLACE 1 TABLET ON TONGUE EVERY 8 HOURS NEEDED FOR NAUSEA AND VOMITING Rx Instructions: PLACE 1 TABLET ON TONGUE EVERY 8 HOURS NEEDED FOR NAUSEA AND VOMITING filgrastim-aafi 480 mcg/0.8 mL syringe 480 mcg subcut .COMPLEX Qty: 1.6 0RF Rx Instructions: 480 mcg subcutaneously once weekly; Continue filgrastim related to oral surgery, subcutaneously until week of f/u w/ Dr. Shaver. albuterol sulfate 90 mcg/actuation HFA aerosol inhaler See Rx Instructions .ROUTE .COMPLEX Qty: 8.5 12RF Dose Instruction: USE 2 TO 3 INHALATIONS EVERY 4 HOURS NEEDED FOR SHORTNESS OF AIR/WHEEZING Rx Instructions: USE 2 TO 3 INHALATIONS EVERY 4 HOURS NEEDED FOR SHORTNESS OF AIR/WHEEZING progesterone micronized [Prometrium] 100 mg capsule 100 mg PO QDAY Qty: 90 3RF metformin 500 mg tablet extended release 24 hr PO candesartan 16 mg tablet 32 mg PO QDAY Qty: 90 3RF oxycodone-acetaminophen 10-325 mg tablet 1 tab PO Patient Comments: TAKE ONE TABLET BY MOUTH EVERY EIGHT HOURS NEEDED FOR PAIN oxycodone-acetaminophen 10-325 mg tablet 0.5 tab PO QID PRN (Reason: pain) Qty: 10 0RF liothyronine 5 mcg tablet 20 mcg PO QDAY Patient Comments: Take 4 tablet by mouth once a day as directed on empty stomach thyroid (pork) [POSTAL CARRIER Thyroid] 90 mg tablet 90 mg PO QDAY Patient Comments: TAKE 1 TABLET DAILY Femring 0.1 mg/24 hr ring 1 vag ring vaginal [id number] cholecalciferol (vitamin D3) 50 mcg (2,000 unit) capsule 50 mcg PO QDAY cyanocobalamin (vitamin B-12) 1,000 mcg capsule 1,000 mcg PO QDAY Mounjaro 12.5 mg/0.5 mL pen injector 12.5 mg subcut QWEEK Print Language: Hong Konger Stand Alone Forms: PCP List
--- NOTE | 2024-11-09 23:34 | CT Report ---
PROCEDURE: CT Abdomen/Pelvis WO INDICATIONS: abdominal cramping TECHNIQUE: A CT scan of the abdomen and pelvis was performed without the use of intravenous contrast. Images we re recorded and evaluated at appropriate window settings. Reformats: coronal and sagittal. For radiat ion dose reduction, the following was used: automated exposure control, adjustment of mA and/or kV ac cording to patient size. COMPARISON: CT abdomen pelvis 06/21/2015. FINDINGS: Image quality: Diagnostic. Evaluation of the solid organs is limited without IV contrast. Lower chest: Unremarkable. Liver: No contour-deforming mass. Gallbladder: Absent. Biliary tree: No intrahepatic or extrahepatic dilation, accounting for age. Spleen: No splenomegaly. Pancreas: No pancreatic ductal dilation. Adrenals: No adrenal nodule. Kidneys and ureters: No hydronephrosis. No kidney stones. No contour-deforming mass. Stomach, bowel and peritoneum: Gastric bypass. Stomach is not distended. Dilated loops of small bowel in the left abdomen. No discrete transition point. Additional prominent fluid-filled loops of small bowel in the right lower abdomen. A few colonic diverticuli. Normal appendix. Mesenteric edema. No as cites. No pneumoperitoneum. Lymph nodes: No central or retroperitoneal adenopathy. Vessels: No infrarenal aortic aneurysm. Reproductive organs: Anteverted uterus. Pessary in the vagina. Bladder: No abnormal bladder wall thickening. No calcified bladder stones. Pelvic lymph nodes: No adenopathy by size criteria. Bones: No aggressive osseous abnormality. Lateral L5 pars defect. Retrolisthesis of L4 on L5 measurin g 0.7 cm. Other: No significant ventral or inguinal hernia. IMPRESSION: 1. Mildly dilated loops of small bowel in the left abdomen. Prominent loops of small bowel in the rig ht abdomen. Gastric bypass. No discrete transition point is identified. Findings could represent adyn amic ileus or developing small bowel obstruction. 2. Normal appendix. 3. No hydronephrosis. Reviewed by: Morgan Diehl MD on 11/09/2024 11:33 PM PDT Approved by: Morgan Diehl MD on 11/09/2024 11:33 PM PDT Station ID: [id number]
[2024-11-10] MEDS ORDERED: [UNRECOGNIZED DRUG - REMARK] NAS PRN (00:05)
[2024-11-10] MEDS: HYDROmorphone 1 MG/ML SYRINGE IVP STA (00:06)
[2024-11-10] MEDS ORDERED: BENZOCAINE/MENTHOL LOZENGE MM PRN (00:07)
[2024-11-10] MEDS ORDERED: NON FORMULARY MED (Albuterol Sulfate 90 mcg/actuation HFA aerosol inhaler) SCH (00:15)
[2024-11-10] MEDS ORDERED: FILGRASTIM AAFI 480 MCG/0.8 ML SUBQ SCH (00:15)
[2024-11-10] MEDS ORDERED: ESTRADIOL ACETATE VG SCH (00:15)
[2024-11-10] MEDS ORDERED: TIRZEPATIDE 12.5 MG/0.5 ML SUBQ SCH (00:15)
[2024-11-10] MEDS ORDERED: CANDESARTAN 16 MG PO SCH (00:15)
--- NOTE | 2024-11-10 00:54 | HISTORY & PHYSICAL EXAMINATION ---
Chief Complaint Chief Complaint Chief Complaint: abd pain, cramping History of Present Illness History of Present Illness HPI Comment/Other: Patient is a 54-year-old female presenting to the emergency department with past medical history of chronic neutropenia, gastric bypass, history of cholecystectomy, hernia, kidney stones presents with abd cramping and discomfort that developed in last 24 h. pt states ever since gastric bypass in 2002 she has had issues with digestion but denies h/o obstruction. she was not sure if pain was from kidney stone or from GI. no vomiting. no diarrhea. no dysuria or hematuria. she has been taking zepbound for that past year without any issues. no clear reason behind neutropenia ("genetic"). Review of Systems Status of ROS: 10 or more systems reviewed and unremarkable except as noted in history and below PFSH Active Problems All Active Problems (Updated 11/10/24 @ 00:24 by Carol Lepe MD) Partial small bowel obstruction (Acute) Pain, dental (Acute) Bipolar disease, chronic (Acute) Chronic sinusitis (Acute) Fibromyalgia (Acute) Hypothyroidism (Acute) Weight gain following gastric bypass surgery (Acute) Morbid obesity (Acute) Healthcare maintenance (Acute) Iron deficiency anemia (Acute) Chronic neutropenia (Acute) Vasomotor symptoms due to menopause (Acute) Back spasm (Acute) Migraine (Acute) Nausea & vomiting (Acute) Elevated liver enzymes (Acute) Medical History Medical History (Updated 11/10/24 @ 00:24 by Carol Lepe MD) Pyelonephritis Sinusitis Neutropenia Osteomyelitis Headache Abdominal pain Surgical History Surgical History (Updated 06/27/24 @ 09:28 by Addison Hughes MD) History of Елена-en-Y gastric bypass Social History Social History (Updated 06/23/24 @ 13:38 by Latrell Muhammad MA) Smoking Status: Never smoker Second hand tobacco smoke exposure: No Do you dip or chew tobacco?: No Do you vape?: No Patient requests smoking cessation consult: No Initiate information on smoking cessation: No Living arrangement: At home Marital Status: Living Condition: With spouse/s.o. Relationship: Level: Independent Do you feel safe in your home environment?: Yes Suffered physical, verbal, emotional, or financial abuse?: No History of Abuse: No ETOH Use: None Substance Use: denies use Are you sexually active?: Yes Control Method: None Occupation: disability Retired: No Service: No Are you following a diet prescribed by a doctor: Yes Are you following a special diet: No Special Diet Details: 1000grams protein POLST Patient has POLST: No Meds/Allgy Home Medications Ambulatory Orders Medication Instructions Recorded Confirmed cholecalciferol (vitamin D3) 50 50 mcg PO QDAY 05/21/24 09/23/24 mcg (2,000 unit) capsule epinephrine 0.3 mg/0.3 mL 0.3 mg (0.3 mL) IM Q30M PRN 05/21/24 09/23/24 injection, auto-injector (EpiPen bronchodilation #6 ea 2-Stephen) estradiol acetate 0.1 mg/24 hr 1 vag ring vaginal [id number] 05/21/24 09/23/24 vaginal ring (Femring) liothyronine 5 mcg tablet 20 mcg PO QDAY 05/21/24 09/23/24 thyroid (pork) 90 mg tablet (ACCOUNT MANAGER 90 mg PO QDAY 05/21/24 09/23/24 Thyroid) zolmitriptan 5 mg nasal spray 5 mg intranasal DAILY PRN Headache 06/04/24 09/23/24 #6 ea cyanocobalamin (vitamin B-12) 1,000 mcg PO QDAY 06/16/24 09/23/24 1,000 mcg capsule tirzepatide 12.5 mg/0.5 mL 12.5 mg subcut QWEEK 06/16/24 09/23/24 subcutaneous pen injector (Rocael) candesartan 16 mg tablet 32 mg (2 x 16 mg) PO QDAY #90 tabs 06/23/24 09/23/24 metformin 500 mg tablet,extended mg PO 06/23/24 09/23/24 release 24 hr ondansetron 8 mg disintegrating See Rx Instructions .Route 07/17/24 09/23/24 tablet .COMPLEX #90 tabs oxycodone-acetaminophen 10 mg-325 0.5 tab PO QID PRN pain #10 tabs 09/18/24 09/23/24 mg tablet oxycodone-acetaminophen 10 mg-325 1 tab PO 09/18/24 09/23/24 mg tablet filgrastim-aafi 480 mcg/0.8 mL 480 mcg (0.8 mL) subcut .COMPLEX 03/19/25 subcutaneous syringe #1.6 mL albuterol sulfate 90 mcg/actuation See Rx Instructions .Route 11/02/24 aerosol inhaler .COMPLEX #8.5 grams progesterone micronized 100 mg 100 mg PO QDAY #90 caps 11/05/24 capsule (Prometrium) Allergies Allergies Allergy/AdvReac Type Severity Reaction Status Date / Time clindamycin Allergy Severe Rash Verified 11/09/24 17:20 pantoprazole sodium * (From Allergy Severe Rash Verified 11/09/24 17:20 Protonix) Penicillins Allergy Severe Respiratory Verified 11/09/24 17:20 prochlorperazine edisylate * Allergy Severe panic Verified 11/09/24 17:20 (From Compazine) attack prochlorperazine maleate * Allergy Severe Edema Verified 11/09/24 17:20 (From Compazine) venom-honey bee Allergy Severe Anaphylaxis Verified 11/09/24 17:20 mushroom Allergy Unknown Rash Verified 11/09/24 17:20 codeine Allergy Emesis Verified 11/09/24 17:20 hydrocodone bitartrate * Allergy Itching Verified 11/09/24 17:20 (From Vicodin) morphine AdvReac Severe Headache Verified 11/09/24 17:20 promethazine AdvReac Severe Anxiety Verified 11/09/24 17:20 zolpidem tartrate * (From AdvReac Severe Hallucinati Verified 11/09/24 17:20 Ambien) ons Iodinated Contrast Media AdvReac Rash Verified 11/09/24 17:20 Exam Exam Vital Signs: Vital Signs x48h Temp Pulse Resp BP Pulse Ox 11/09/24 23:04 94 16 138/88 H 95 11/09/24 22:09 89 20 155/112 H 97 11/09/24 20:21 99 21 147/104 H 96 11/09/24 17:20 36.5 C 125 H 18 122/85 99 Constitutional normal general appearance and no apparent distress HENMT normocephalic, hearing grossly normal bilaterally and external ears normal Eyes EOMs intact bilaterally Chest inspection of chest normal Respiratory no retractions and no use of accessory muscles details per ed charting Cardiovascular details per ed charting Gastrointestinal generalized tenderness Extremities full ROM Neurology railroad construction director II-XII intact, no movement abnormality noted, no focal motor deficit noted, no sensory deficits noted, speech normal and GCS 15 Psychiatry mental status grossly normal, oriented x3, thought process normal, cooperative, affect normal, psychomotor activity normal and memory normal Conclusion/Plan Problem List (1) Partial small bowel obstruction: Lab Results 11/09/24 17:37 11/09/24 17:37 Other Other Results/Comments: pt with - - abd pain in setting of ileus vs developing partial sbo h/o chronic abd pain / cramping no ngt at this time, as there is no vomiting pain controlled ivf, supportive mgmt zepbound can decrease gi transit time (risk factor) if progresses to sbo, would need surgical consultation - chronic neutropenia on neupogen no fevers, chills, infections - bipolar d/o at baseline affect congruent with mood no obvious hypomanic or manic sx f/u labs, replete electrolytes further orders per clinical course
[2024-11-10 01:34] LABS: THYROID STIMULATING HORMONE 0.12 uIU/mL (0.34-5.60)
[2024-11-10] MEDS: HYDROmorphone 0.5 MG/0.5 ML SYRINGE IVP PRN ×2 (01:35→14:41)
[2024-11-10 01:37] LABS: CHOL/HDL RATIO 3.5 (<4.4); CHOLESTEROL 175 mg/dL; HDL CHOLESTEROL 50 mg/dL; LDL CHOLESTEROL,CALCULATED 109 mg/dL; LDL/HDL RATIO 2.2 (<4.4); TRIGLYCERIDES 79 mg/dL; VLDL CHOLESTEROL 16 mg/dL
[2024-11-10] MEDS: LACTATED RINGERS 1,000 ML IV SCH (01:39)
[2024-11-10] MEDS: diphenhydrAMINE 25 MG CAPSULE PO ONE (02:01)
[2024-11-10 05:21] LABS: EOSINOPHILS % (AUTO) 4.5 %; HCT - HEMATOCRIT 34.7 % (37.0-47.0); HGB - HEMOGLOBIN 11.1 g/dL (12.0-16.0); MEAN CORPUSCULAR HEMOGLOBIN 31.2 pg (27.0-31.0); MEAN CORPUSCULAR VOLUME 97.5 fL (81.0-99.0); MEAN PLATELET VOLUME 10.7 fL (7.9-10.8); MONOCYTES % (AUTO) 25.6 %; NEUTROPHILS % (AUTO) 2.9 %; PLT - PLATELET COUNT 248 10^3/uL (130-450); RED BLOOD COUNT 3.56 10^6/uL (4.20-5.40); RED CELL DISTRIBUTION WIDTH 12.8 % (12.0-15.0); WHITE BLOOD COUNT 2.5 x10^3/uL (4.8-10.8)
[2024-11-10] MEDS: ONDANSETRON 4 MG/2 ML VIAL IVP PRN (05:27)
[2024-11-10 05:29] LABS: ALBUMIN 3.8 g/dL (3.2-5.5); ALBUMIN/GLOBULIN RATIO 1.5 (1.0-2.2); BILIRUBIN,TOTAL 0.5 mg/dL (0.2-1.0); CALCIUM 9.5 mg/dL (8.5-10.3); CREATININE 0.7 mg/dL (0.6-1.3); MAGNESIUM 1.9 mg/dL (1.7-2.3); POTASSIUM 4.3 mmol/L (3.5-4.5); TOTAL PROTEIN 6.3 g/dL (6.4-8.9)
[2024-11-10 05:33] LABS: ABNORMAL LYMPHS % (MANUAL) 0 %; BAND NEUTROPHILS % (MANUAL) 0 %
[2024-11-10 06:34] LABS: EOSINOPHILS # (MANUAL) 0.1 10^3/uL (0-0.7); LYMPHOCYTES # (MANUAL) 1.9 10^3/uL (1.5-3.5); LYMPHOCYTES % (MANUAL) 77 %; MONOCYTES # (MANUAL) 0.3 10^3/uL (0.0-1.0); NEUTROPHILS # (MANUAL) 0.1 10^3/uL (1.5-6.6)
[2024-11-10 06:35] LABS: DIFFERENTIAL COMMENT MANUAL DIFFERENTIAL; PLATELET ESTIMATE, MANUAL NORMAL (130-450,000) (NORMAL); PLATELET MORPHOLOGY NORMAL APPEARANCE (NORMAL); RBC MORPHOLOGY (MULTIPLE) NORMAL APPEARANCE (NORMAL); WBC MORPHOLOGY (MULTIPLE) NORMAL APPEARANCE (NORMAL)
[2024-11-10 07:11] LABS: ESTIMATED AVERAGE GLUCOSE 94 mg/dL (70-100); HEMOGLOBIN A1c% 4.9 % (4.27-6.07)
[2024-11-10] MEDS: CHOLECALCIFEROL 25 MCG TABLET PO SCH (08:07)
[2024-11-10] MEDS: LIOTHYRONINE 5 MCG TABLET PO SCH (08:07)
[2024-11-10] MEDS: PROGESTERONE 100 MG PO SCH (08:08)
[2024-11-10] MEDS: THYROID 60 MG TABLET PO SCH (08:08)
--- NOTE | 2024-11-10 09:41 | PHARMACY PROGRESS NOTE ---
Best Possible Medication History Admit Date and Time: 11/10/24 0031 Home Medications Medication Instructions Recorded Confirmed Type cholecalciferol (vitamin D3) 50 50 mcg PO DAILY 05/21/24 11/10/24 History mcg (2,000 unit) capsule epinephrine 0.3 mg/0.3 mL 0.3 mg (0.3 mL) IM Q30M PRN 05/21/24 11/10/24 Rx injection, auto-injector (EpiPen bronchodilation #6 ea 2-Stephen) estradiol acetate 0.1 mg/24 hr 1 vag ring vaginal [id number] 05/21/24 11/10/24 History vaginal ring (Femring) liothyronine 5 mcg tablet 10 mcg PO DAILY 05/21/24 11/10/24 History thyroid (pork) 90 mg tablet (VASCULAR MANAGER 90 mg PO DAILY 05/21/24 11/10/24 History Thyroid) cyanocobalamin (vitamin B-12) 1,000 mcg PO DAILY 06/16/24 11/10/24 History 1,000 mcg capsule tirzepatide 12.5 mg/0.5 mL 15 mg subcut QWEEK 06/16/24 11/10/24 History subcutaneous pen injector (Mounjaro) metformin 500 mg tablet,extended 1,000 mg PO DAILY 06/23/24 11/10/24 History release 24 hr ondansetron 8 mg disintegrating See Rx Instructions .Route 07/17/24 11/10/24 Rx tablet .COMPLEX #90 tabs albuterol sulfate 90 mcg/actuation See Rx Instructions .Route 11/02/24 11/10/24 Rx aerosol inhaler .COMPLEX #8.5 grams candesartan 16 mg tablet 16 mg PO DAILY 11/10/24 11/10/24 History progesterone micronized 100 mg 100 mg PO DAILY 11/10/24 11/10/24 History capsule (Prometrium) Processed by: Pharmacy (Medication reconciliation completed by Windows Software EngineerKaylan) Medications reviewed in ED?: No Medication History completed: Yes Patient Interview: Completed Secondary Source(s): Insurance records [facility] Statement: As the person ultimately responsible for medication therapy, providers are able to order a medication from an existing home medication list in [facility] via the "Reconcile Routine" prior to Confirmation of that medication by landing support specialist. Such practice is discouraged except when the physician, in their clinical judgment, deems that a medical need exists for a medication without regard to previous use.
[2024-11-10] MEDS ORDERED: DIATR MEGLU/DIATRIZOATE SODIUM 120 ML BOTTLE ONE (12:56)
[2024-11-10] MEDS: DIATR MEGLU/DIATRIZOATE SODIUM 120 ML BOTTLE PO ONE (13:37)
--- NOTE | 2024-11-10 19:55 | XRAY Report ---
PROCEDURE: XR SBFT Challenge Panel INDICATIONS: SBO VERSUS ILEUS COMPARISON: CT abdomen pelvis 11/09/2024 FINDINGS: KUB: Preprocedural heat treating bluer film demonstrates a normal bowel gas pattern. No suspicious abdominal calc ifications. Visualized solid organ contours appear normal. No suspicious bony abnormalities. Small bowel: There is normal transit time of barium through the small bowel. Small bowel loops are of normal caliber throughout. Mucosal folds are smooth and of normal thickness. No strictures, intr aluminal masses, or extrinsic mass effects are noted. The terminal ileum is identified, and is dayanna l in morphology. Right colon is visualized. IMPRESSION: Nonobstructive gas pattern. Reviewed by: Collette Carreno MD on 11/10/2024 7:54 PM PDT Approved by: Collette Carreno MD on 11/10/2024 7:54 PM PDT Station ID: [id number]
[2024-11-11] MEDS: ACETAMINOPHEN 325 MG TABLET PO PRN (03:13)
[2024-11-11] MEDS: THYROID 60 MG TABLET PO SCH (06:37)
[2024-11-11] MEDS: HYDROmorphone 0.5 MG/0.5 ML SYRINGE IVP PRN (09:22)
[2024-11-11 12:06] LABS: BASOPHILS % (AUTO) 3.1 %; EOSINOPHILS % (AUTO) 16.2 %; HCT - HEMATOCRIT 35.5 % (37.0-47.0); HGB - HEMOGLOBIN 11.3 g/dL (12.0-16.0); LYMPHOCYTES % (AUTO) 54.2 %; MEAN CORPUSCULAR HEMOGLOBIN 31.5 pg (27.0-31.0); MEAN CORPUSCULAR HGB CONC 31.8 g/dL (32.0-36.0); MEAN CORPUSCULAR VOLUME 98.9 fL (81.0-99.0); MEAN PLATELET VOLUME 10.5 fL (7.9-10.8); MONOCYTES % (AUTO) 18.1 %; NEUTROPHILS % (AUTO) 6.5 %; PLT - PLATELET COUNT 251 10^3/uL (130-450); RED BLOOD COUNT 3.59 10^6/uL (4.20-5.40); RED CELL DISTRIBUTION WIDTH 12.7 % (12.0-15.0); WHITE BLOOD COUNT 2.6 x10^3/uL (4.8-10.8)
[2024-11-11 12:17] LABS: ABNORMAL LYMPHS % (MANUAL) 0 %; BAND NEUTROPHILS % (MANUAL) 0 %
--- NOTE | 2024-11-11 12:26 | PROVIDER PROGRESS NOTE ---
Subjective Prog Note Date Prog Note Date: 11/11/24 Subjective Subjective: She has tolerated a clear liquid diet. She has had bowel movements. She is not hungry, but this is normal for her on the tirzepatide. She last took it 11/06. it is dosed weekly. She would like to restart her home meds. She still has nausea and wants to take her home dose of Zofran for that. She is concerned about her protein intake. She continues to have crampy abdominal pain that is not in one location only. seems to move around her abdomen. Better with parenteral dilaudid Current Medications Current Medications Current Medications: Current Medications Generic Name Dose Route Start Last Admin Trade Name Freq PRN Reason Stop Dose Admin Acetaminophen 650 mg 11/10/24 00:07 11/11/24 08:33 Acetaminophen 325 Mg Tablet PO 650 mg Q6H PRN Administration pain, fever Cholecalciferol 50 mcg 11/10/24 09:00 11/11/24 08:33 Cholecalciferol 25 Mcg Tablet PO 50 mcg DAILY SANJAY Administration Hydromorphone HCl 0.5 mg 11/11/24 08:43 11/11/24 09:22 Hydromorphone 0.5 Mg/0.5 Ml Syringe IVP 0.5 mg Q2H PRN Administration Severe Pain (Level 7-10) Liothyronine Sodium 10 mcg 11/12/24 07:00 Liothyronine 5 Mcg Tablet PO QDAC SANJAY Ondansetron HCl 4 mg 11/10/24 00:07 11/11/24 03:07 Ondansetron 4 Mg/2 Ml Vial IVP 4 mg Q8H PRN Administration Nausea / Vomiting Ondansetron HCl 8 mg 11/11/24 12:13 Ondansetron Odt 4 Mg Tablet PO Q8H PRN Nausea / Vomiting Patient Own Med ( 1 each 11/10/24 09:00 11/11/24 09:20 Progesterone 100mg) PO 1 each DAILY SANJAY Administration Candesartan 16mg 1 each 11/11/24 13:00 Tablet PO DAILY SANJAY Throat Lozenges 1 lozenge 11/10/24 00:07 Benzocaine/Menthol Lozenge MM Q2HR PRN Mouth Sore Pain Thyroid 90 mg 11/11/24 07:00 11/11/24 06:37 Thyroid 60 Mg Tablet PO 90 mg 0700 SANJAY Administration Objective Vital Signs/Intake & Output Reviewed Vital Signs: Yes Vital Signs: Vital Signs x48h Temp Pulse Resp BP Pulse Ox 11/11/24 07:33 36.5 C 76 20 130/76 96 Intake & Output: Intake & Output 11/08/24 11/09/24 11/10/24 11/11/24 23:59 23:59 23:59 23:59 Intake Total 1999 3350 / 3350 Balance 1999 3350 / 3350 Weight (kg) 95.254 kg 97 kg Objective General Appearance: positive No acute distress Eyes Bilateral: positive Conjunctivae nml ENT: positive ENT inspection nml Neck: positive Nml inspection Respiratory: positive No respiratory distress and Breath sounds nml Cardiovascular: positive Regular rate & rhythm Abdomen: positive No distention, Tenderness (mild and diffuse) and Other (active bowel tones) Back: positive Nml inspection Skin: positive Color nml Extremities: positive Non-tender and No pedal edema Neurologic/Psychiatric: positive Oriented x3 Lab Results 11/11/24 11:58 11/11/24 11:58 Other Labs: Lab Results x24hrs 11/11/24 Range/Units 11:58 WBC 2.6 L (4.8-10.8) x10^3/uL RBC 3.59 L (4.20-5.40) 10^6/uL Hgb 11.3 L (12.0-16.0) g/dL Hct 35.5 L (37.0-47.0) % MCV 98.9 (81.0-99.0) fL MCH 31.5 H (27.0-31.0) pg MCHC 31.8 L (32.0-36.0) g/dL RDW 12.7 (12.0-15.0) % Plt Count 251 (130-450) 10^3/uL MPV 10.5 (7.9-10.8) fL Assessment/Plan Problem List (1) Partial small bowel obstruction: Impression: Hx of RNYGB with possible SBO seen on CT at the time of admission. She underwent gastrograffin challenge yesterday, and successfully passed contrast. I have reviewed the images and there is contrast seen throughout the small bowel. She has been tolerating clears. She is feeling better and is ready to advance her diet. She is still having crampy abdominal pain and requiring parenteral narcotics. She has not tolerated a diet, aside from clears. I have advanced her diet this afternoon. She had some loose stool after lunch, possibly due to lots of sugar in Ensure clear and dumping s/p RNYGB She last took her zepbound 5 days ago. She has been on this for >1 year and has never had difficulty with it. She has never had a SBO before. She has been able to walk in the halls. (2) Iron deficiency anemia: Impression: Laboratory Tests 11/11/24 11:58 Iron 45 L TIBC 273 % Saturation 16 L Transferrin 195 L She has a hx of chronic iron deficiency. she has had periodic iron infusions in the past. I will write for iron. Ferrlicit 125mg IV. This will be given in the AM. Qualifiers: Iron deficiency anemia type: other iron deficiency Qualified Code(s): D 50.8 - Other iron deficiency anemias (3) Chronic neutropenia: Impression: This is chronic. She sees Dr Shaver. She has had this dx since 2003. negative bone marrow bx in 2008. mildly hypocellular marrow in 2021. She has issues with chronic sinusitis and dental infections. She has been afebrile and no other s/sx infections. I have reviewed last oncology note, which says that she should be on filgrastim weekly. Discussed this further with her, and she has been taking it before planned, staged dental work. She does not feel that she needs it now. Today, her labs show ANC 0.2. I will repeat the CBC in the AM. Laboratory Tests 11/09/24 11/10/24 11/11/24 17:37 05:03 11:58 WBC 4.4 L 2.5 L 2.6 L (4) Bipolar disease, chronic: Impression: She has struggled with this for years. She has noted that since she has been on the Zepbound, her depression is much improved. She can deal with her struggles in life and not be sad all the time. She is so thankful for this medication, and wants to stay on it as a lifetime medication. (5) Hypothyroidism: Impression: continue home meds. I have ordered them I have spent 45 minutes in the care of this patient today. This includes time [id number], review and ordering of diagnostic imaging and laboratory studies. Monitoring the patient's signs symptoms, evaluation of medication effectiveness and patient's response to treatment.
[2024-11-11 12:28] LABS: BASOPHILS # (MANUAL) 0.1 10^3/uL (0-0.1); BASOPHILS % (MANUAL) 5 %; CALCIUM 9.8 mg/dL (8.5-10.3); CREATININE 0.6 mg/dL (0.6-1.3); DIFFERENTIAL COMMENT MANUAL DIFFERENTIAL; EOSINOPHILS # (MANUAL) 0.5 10^3/uL (0-0.7); LYMPHOCYTES # (MANUAL) 1.5 10^3/uL (1.5-3.5); LYMPHOCYTES % (MANUAL) 50 %; MONOCYTES # (MANUAL) 0.3 10^3/uL (0.0-1.0); NEUTROPHILS # (MANUAL) 0.2 10^3/uL (1.5-6.6); PLATELET ESTIMATE, MANUAL NORMAL (130-450,000) (NORMAL); PLATELET MORPHOLOGY NORMAL APPEARANCE (NORMAL); POTASSIUM 4.5 mmol/L (3.5-4.5); RBC MORPHOLOGY (MULTIPLE) NORMAL APPEARANCE (NORMAL); REACTIVE LYMPHS % (MANUAL) 6 %
[2024-11-11] MEDS: CANDESARTAN 16 MG PO SCH (13:31)
[2024-11-12] MEDS: ONDANSETRON ODT 4 MG TABLET PO PRN (05:33)
[2024-11-12 05:56] LABS: BASOPHILS % (AUTO) 2.3 %; EOSINOPHILS % (AUTO) 22.7 %; HCT - HEMATOCRIT 32.9 % (37.0-47.0); HGB - HEMOGLOBIN 10.6 g/dL (12.0-16.0); LYMPHOCYTES % (AUTO) 54.6 %; MEAN CORPUSCULAR HEMOGLOBIN 31.7 pg (27.0-31.0); MEAN CORPUSCULAR HGB CONC 32.2 g/dL (32.0-36.0); MEAN CORPUSCULAR VOLUME 98.5 fL (81.0-99.0); MEAN PLATELET VOLUME 11.2 fL (7.9-10.8); MONOCYTES % (AUTO) 15.5 %; NEUTROPHILS % (AUTO) 4.9 %; PLT - PLATELET COUNT 206 10^3/uL (130-450); RED BLOOD COUNT 3.34 10^6/uL (4.20-5.40); RED CELL DISTRIBUTION WIDTH 12.7 % (12.0-15.0)
[2024-11-12 06:14] LABS: CALCIUM 9.1 mg/dL (8.5-10.3); CREATININE 0.6 mg/dL (0.6-1.3); POTASSIUM 3.6 mmol/L (3.5-4.5)
[2024-11-12 06:24] LABS: ABNORMAL LYMPHS % (MANUAL) 0 %
[2024-11-12] MEDS: LIOTHYRONINE 5 MCG TABLET PO SCH (06:34)
[2024-11-12 06:59] LABS: BAND NEUTROPHILS % (MANUAL) 1 %; EOSINOPHILS # (MANUAL) 0.5 10^3/uL (0-0.7); LYMPHOCYTES # (MANUAL) 1.9 10^3/uL (1.5-3.5); LYMPHOCYTES % (MANUAL) 64 %; MONOCYTES # (MANUAL) 0.3 10^3/uL (0.0-1.0); NEUTROPHILS # (MANUAL) 0.2 10^3/uL (1.5-6.6)
[2024-11-12 07:00] LABS: DIFFERENTIAL COMMENT MANUAL DIFFERENTIAL; PLATELET ESTIMATE, MANUAL NORMAL (130-450,000) (NORMAL); PLATELET MORPHOLOGY NORMAL APPEARANCE (NORMAL); RBC MORPHOLOGY (MULTIPLE) NORMAL APPEARANCE (NORMAL); WBC MORPHOLOGY (MULTIPLE) NORMAL APPEARANCE (NORMAL)
[2024-11-12] MEDS ORDERED: FERRIC GLUCONATE 125 MG in SODIUM CHLORIDE 0.9% 100ML 100 ML IV ONE (07:00)
[2024-11-12] MEDS: FERRIC GLUCONATE 125 MG in SODIUM CHLORIDE 0.9% 100ML 100 ML IV ONE (09:42)
--- NOTE | 2024-11-12 11:36 | Discharge Summary ---
Discharge Summary Admit Date: 11/10/24 Discharge Date: 11/12/24 Discharging Provider: Shara Santacruz PA-C Primary Care Provider: Addison Hughes MD Code Status: Attempt Resuscitation DIAGNOSES Discharge Diagnoses with Status of Each Condition: Partial small bowel obstruction: Resolved after administration of Gastrografin Iron deficiency anemia: Given Ferrlecit 125 mg IV while inpatient. Follow-up with PCP Chronic neutropenia. ANC was 0.2 while here. No evidence of neutropenic fever or infection. Chronic bipolar disease: Stable Hypothyroidism: Chronic and stable. HPI History of Present Illness: Patient is a 54-year-old female presenting to the emergency department with past medical history of chronic neutropenia, gastric bypass, history of cholecystectomy, hernia, kidney stones presents with abd cramping and discomfort that developed in last 24 h. pt states ever since gastric bypass in 2002 she has had issues with digestion but denies h/o obstruction. she was not sure if pain was from kidney stone or from GI. no vomiting. no diarrhea. no dysuria or hematuria. she has been taking zepbound for that past year without any issues. no clear reason behind neutropenia ("genetic") CONSULTS | PROCEDURES Procedures: CT A/P: IMPRESSION: 1. Mildly dilated loops of small bowel in the left abdomen. Prominent loops of small bowel in the right abdomen. Gastric bypass. No discrete transition point is identified. Findings could represent adynamic ileus or developing small bowel obstruction. 2. Normal appendix. 3. No hydronephrosis. HOSPITAL COURSE Hospital Course: 54-year-old female who presented to the emergency department with complaints of crampy abdominal pain and discomfort for 24 hours. History of chronic neutropenia, Елена-en-Y gastric bypass cholecystectomy hernia and nephrolithiasis. She denies any history of small bowel obstruction. She underwent Gastrografin challenge and successfully passed the contrast. She was advanced from clear liquids to a regular diet and tolerated this well. She had several bowel movements before leaving the hospital. She was discharged home in stable condition with a small prescription for pain medication as she was still having some crampy abdominal pain but was otherwise doing well. She has a history of iron deficiency anemia was treated with 1 dose of IV Ferrlecit while she was here. History of chronic neutropenia, idiopathic. She did have ANC that was low while she was here but did not have any other signs symptoms of infection. ALLERGIES Allergies Allergy/AdvReac Type Severity Reaction Status Date / Time clindamycin Allergy Severe Rash Verified 11/09/24 17:20 pantoprazole sodium * (From Allergy Severe Rash Verified 11/09/24 17:20 Protonix) Penicillins Allergy Severe Respiratory Verified 11/09/24 17:20 prochlorperazine edisylate * Allergy Severe panic Verified 11/09/24 17:20 (From Compazine) attack prochlorperazine maleate * Allergy Severe Edema Verified 11/09/24 17:20 (From Compazine) venom-honey bee Allergy Severe Anaphylaxis Verified 11/09/24 17:20 propoxyphene Allergy Mild Rash Verified 11/10/24 09:39 mushroom Allergy Unknown Rash Verified 11/09/24 17:20 codeine Allergy Emesis Verified 11/09/24 17:20 hydrocodone bitartrate * Allergy Itching Verified 11/09/24 17:20 (From Vicodin) morphine AdvReac Severe Headache Verified 11/09/24 17:20 promethazine AdvReac Severe Anxiety Verified 11/09/24 17:20 zolpidem tartrate * (From AdvReac Severe Hallucinati Verified 11/09/24 17:20 Ambien) ons Iodinated Contrast Media AdvReac Rash Verified 11/09/24 17:20 MEDICATIONS Ambulatory Orders Medication Instructions Recorded Confirmed cholecalciferol (vitamin D3) 50 50 mcg PO DAILY 05/21/24 11/13/24 mcg (2,000 unit) capsule epinephrine 0.3 mg/0.3 mL 0.3 mg (0.3 mL) IM Q30M PRN 05/21/24 11/13/24 injection, auto-injector (EpiPen bronchodilation #6 ea 2-Stephen) estradiol acetate 0.1 mg/24 hr 1 vag ring vaginal [id number] 05/21/24 11/13/24 vaginal ring (Femring) liothyronine 5 mcg tablet 10 mcg PO DAILY 05/21/24 11/13/24 thyroid (pork) 90 mg tablet (PUBLIC SERVICES ASSISTANT 90 mg PO DAILY 05/21/24 11/13/24 Thyroid) cyanocobalamin (vitamin B-12) 1,000 mcg PO DAILY 06/16/24 11/13/24 1,000 mcg capsule tirzepatide 12.5 mg/0.5 mL 15 mg subcut QWEEK 06/16/24 11/13/24 subcutaneous pen injector (Mounjaro) metformin 500 mg tablet,extended 1,000 mg PO DAILY 06/23/24 11/13/24 release 24 hr ondansetron 8 mg disintegrating See Rx Instructions .Route 07/17/24 11/13/24 tablet .COMPLEX #90 tabs albuterol sulfate 90 mcg/actuation See Rx Instructions .Route 11/02/24 11/13/24 aerosol inhaler .COMPLEX #8.5 grams candesartan 16 mg tablet 16 mg PO DAILY 11/10/24 11/13/24 progesterone micronized 100 mg 100 mg PO DAILY 11/10/24 11/13/24 capsule (Prometrium) oxycodone-acetaminophen 10 mg-325 1 tab PO QID PRN pain #14 tabs 11/12/24 11/13/24 mg tablet (Percocet) PHYSICAL EXAM AT DISCHARGE Vital Signs: Vital Signs x48h Temp Pulse Resp BP Pulse Ox 11/12/24 08:04 36.5 C 73 18 120/78 97 Physical Exam Other/Comments: General Appearance: positive No acute distress Eyes Bilateral: positive Conjunctivae nml ENT: positive ENT inspection nml Neck: positive Nml inspection Respiratory: positive No respiratory distress and Breath sounds nml Cardiovascular: positive Regular rate & rhythm Abdomen: positive No distention, Tenderness (mild and diffuse) and Other (active bowel tones) Back: positive Nml inspection Skin: positive Color nml Extremities: positive Non-tender and No pedal edema Neurologic/Psychiatric: positive Oriented x3 LABS 11/12/24 05:17 11/12/24 05:17 FOLLOW UP Follow Up: [facility], 7-10d Dr Shaver, Heme/onc as scheduled TIME SPENT Time Spent in Discharge (Minutes): 45 Discharge Plan Discharge Patient Disposition: Home, Self Care Condition: Good Prescriptions: New oxycodone-acetaminophen [Percocet] 10-325 mg tablet 1 tab PO QID PRN (Reason: pain) Qty: 14 0RF Continued epinephrine [EpiPen 2-Stephen] 0.3 mg/0.3 mL auto-injector 0.3 mg IM Q30M PRN (Reason: bronchodilation) Qty: 6 1RF Rx Instructions: do not exceed 12 doses per 24 hrs ondansetron 8 mg tablet,disintegrating See Rx Instructions .ROUTE .COMPLEX Qty: 90 3RF Dose Instruction: PLACE 1 TABLET ON TONGUE EVERY 8 HOURS NEEDED FOR NAUSEA AND VOMITING Rx Instructions: PLACE 1 TABLET ON TONGUE EVERY 8 HOURS NEEDED FOR NAUSEA AND VOMITING albuterol sulfate 90 mcg/actuation HFA aerosol inhaler See Rx Instructions .ROUTE .COMPLEX Qty: 8.5 12RF Dose Instruction: USE 2 TO 3 INHALATIONS EVERY 4 HOURS NEEDED FOR SHORTNESS OF AIR/WHEEZING Rx Instructions: USE 2 TO 3 INHALATIONS EVERY 4 HOURS NEEDED FOR SHORTNESS OF AIR/WHEEZING candesartan 16 mg tablet 16 mg PO DAILY progesterone micronized [Prometrium] 100 mg capsule 100 mg PO DAILY metformin 500 mg tablet extended release 24 hr 1,000 mg PO DAILY liothyronine 5 mcg tablet 10 mcg PO DAILY Patient Comments: Take 2 tablet by mouth once a day as directed on empty stomach thyroid (pork) [PUBLIC SERVICES ASSISTANT Thyroid] 90 mg tablet 90 mg PO DAILY Patient Comments: TAKE 1 TABLET DAILY Femring 0.1 mg/24 hr ring 1 vag ring vaginal [id number] cholecalciferol (vitamin D3) 50 mcg (2,000 unit) capsule 50 mcg PO DAILY cyanocobalamin (vitamin B-12) 1,000 mcg capsule 1,000 mcg PO DAILY Mounjaro 12.5 mg/0.5 mL pen injector 15 mg subcut QWEEK Activity Restrictions: Activity as Tolerated Diet: Regular Health Concerns: You came into the hospital through the emergency department with abdominal cramping and discomfort. It looks like you had a small blockage in your bowels. Overall you did well with just supportive care with some IV fluids and nausea medication. While you were here we did notice that your white blood cell count was low but we do not see any other signs or symptoms of infection. I would encourage you to just continue on with your current course of care with regards to your neutropenia. Make sure to keep your follow-up with hematology oncology on November 25. I have made no changes to your home medications. I want you to go home and continue to take all of the things that you are normally taking as you normally take them. This includes your Zepbound. I have added a prescription for Percocet as needed for pain as you transition to home. I have sent the medication into [facility] in [place]. What you had is probably due to some scar tissue in your abdomen secondary to all the abdominal surgery that you have had in the past. There is nothing you did wrong to cause it and there is not really anything you can do to prevent it. As you transition home make sure to get plenty of rest and listen to your body. Return for severe abdominal pain and cramping, bloating in your abdomen and inability to pass gas. Print Language: Fijian Patient Instructions: Obstruction Sm Bowel Follow-up Care: Addison Hughes MD [Primary Care Provider] -
[2024-11-12 13:22] VITALS: BP 121/79; TEMP 97.9; O2SAT 94
--- NOTE | 2024-11-17 23:40 | ED Physician Documentation ---
ED Addendum Addendum Addendum: The pt was signed out to me at change of shift, pending CT after presenting with abd pain. This was done and showed possible ileus vs developing SBO. I discussed the case with hospitalist deputy coroner investigator, and pt was accepted for admission. Pt was agreeable to the plan. Final impression: 1. SBO Disposition: admit to hospital in serious but stable condition Discharge Plan Discharge Patient Disposition: [facility] DC/Xfer Condition: Good Clinical Impression: Partial small bowel obstruction Interventions: ED Admission Assessment Last Done: 11/10/24 00:51
== END 2024-11-12 13:15 | disposition home or self-care (01) | DRG 390 ==
LOC: MS2 16:47 → ED 16:47 → MS2 11-10 01:05
PROVIDERS: ADMIT Student in an Organized Health Care Education/Training Program; ATTEND Physician Assistant Medical
DX: D50.9 Iron deficiency anemia, unspecified; F31.9 Bipolar disorder, unspecified; D70.8 Other neutropenia; Z68.34 Body mass index [BMI] 34.0-34.9, adult; E03.9 Hypothyroidism, unspecified; Z98.84 Bariatric surgery status; E66.01 Morbid (severe) obesity due to excess calories; Z90.49 Acquired absence of other specified parts of digestive tract; Z87.442 Personal history of urinary calculi; K56.600 Partial intestinal obstruction, unspecified as to cause; K56.51 Intestinal adhesions [bands], with partial obstruction; D70.9 Neutropenia, unspecified